=== PATIENT | male | born 1950 | race Caucasian/White ===

== ENCOUNTER 2022-08-14 10:21 | Outpatient (OUT) | payer MEDICARE, SELFPAY ==
[2022-08-14 11:07] LABS: Basophils Absolute Auto 0.1 10^3/uL (0.0-0.1); Basophils Percent Auto 0.7 % (0.2-2.0); Eosinophils Absolute Auto 0.2 10^3/uL (0.0-0.7); Eosinophils Percent Auto 2.7 % (0.9-7.0); Hematocrit 39.6 % (42.0-54.0); Hemoglobin 12.7 g/dL (14.0-18.0); Immature Granulocytes Abs Auto 0.03 10^3/uL (0.00-0.03); Immature Granulocytes Pct Auto 0.3 % (0.0-0.5); Lymphocytes Absolute Auto 2.4 10^3/uL (1.2-3.8); Lymphocytes Percent Auto 27.6 % (20.5-60.0); Mean Corpuscular HGB Conc 32.1 g/dL (29.9-35.2); Mean Corpuscular Hemoglobin 27.6 pg (25.9-34.0); Mean Corpuscular Volume 86.1 fL (80.0-94.0); Mean Platelet Volume 9.3 fL (9.5-13.5); Monocytes Absolute Auto 0.9 10^3/uL (0.3-0.8); Monocytes Percent Auto 9.9 % (1.7-12.0); Neutrophils Absolute Auto 5.2 10^3/uL (1.4-6.5); Neutrophils Percent Auto 58.8 % (43.0-75.0); Platelet Count 241 10^3/uL (150-450); Red Cell Distribution Width 14.5 % (11.0-15.0); White Blood Count 8.8 10^3/uL (4.0-11.0)
[2022-08-14 12:35] LABS: Anion Gap 13.4; BUN Creatinine Ratio 17.6; Calcium 9.1 mg/dL (8.5-10.1); Carbon Dioxide 29.1 mmol/L (21.0-32.0); Chloride 102 mmol/L (98-107); Estimated GFR (African America >60 (>=60); Estimated GFR (Non-African Ame >60 (>=60); Glucose 124 mg/dL (74-106); Potassium 4.5 mmol/L (3.5-5.1); Sodium 140 mmol/L (136-145)
== END 2022-08-14 10:22 ==
PROVIDERS: PCP Family Medicine; Visit Provider Nurse Practitioner
DX: E11.59 Type 2 diabetes mellitus with other circulatory complications (principal); I25.10 Atherosclerotic heart disease of native coronary artery without angina pectoris; I15.2 Hypertension secondary to endocrine disorders; E78.2 Mixed hyperlipidemia; R53.83 Other fatigue; R60.0 Localized edema; I50.9 Heart failure, unspecified; I13.0 Hypertensive heart and chronic kidney disease with heart failure and stage 1 through stage 4 chronic kidney disease, or unspecified chronic kidney disease
CPT/HCPCS: 36415; 80048; 82306; 83880; 85025

== ENCOUNTER 2023-07-08 11:09 | Outpatient (OUT) | payer MEDICARE, SELFPAY ==
[2023-07-08 12:01] LABS: Estimated Average Glucose 197 mg/dL; Glycohemoglobin A1C 8.5 % (4.5-6.2)
[2023-07-08 13:03] LABS: Prostate Specific Antigen Scrn 0.61 ng/mL (<=4.00)
[2023-07-08 13:04] LABS: BUN Creatinine Ratio 14.5; Bilirubin Total 0.4 mg/dL (0.2-1.0); Calcium 9.4 mg/dL (8.5-10.1); Carbon Dioxide 30.3 mmol/L (21.0-32.0); Chloride 101 mmol/L (98-107); Estimated GFR (African America >60 (>=60); Estimated GFR (Non-African Ame >60 (>=60); Glucose 137 mg/dL (74-106); Potassium 4.3 mmol/L (3.5-5.1); Sodium 140 mmol/L (136-145)
[2023-07-08 13:05] LABS: Alanine Aminotransferase 39 U/L (16-63); Albumin Globulin Ratio 0.9; Albumin Level 3.5 g/dL (3.4-5.0); Alkaline Phosphatase 90 U/L (46-116); Aspartate Amino Transferase 36 U/L (15-37); Chol HDL Ratio 5.6; Cholesterol 219 mg/dL (<=200); Globulin 4.1 g/dL; HDL Cholesterol 39 mg/dL (40-60); Total Protein 7.6 g/dL (6.4-8.2); Triglycerides 210 mg/dL (<=150)
[2023-07-08 13:06] LABS: Thyroid Stimulating Hormone 3.188 uIU/mL (0.358-3.740)
[2023-07-08 13:22] LABS: Microalbumin Urine Random 2.4 mg/dL (<=30.0)
== END 2023-07-08 11:10 | disposition home or self-care (01) ==
LOC: LAB 11:11
PROVIDERS: PCP Family Medicine; Visit Provider Family Medicine
DX: E11.65 Type 2 diabetes mellitus with hyperglycemia (principal); I10 Essential (primary) hypertension; Z12.5 Encounter for screening for malignant neoplasm of prostate
CPT/HCPCS: 36415; 80053; 80061; 82043; 83036; 84443; G0103

== ENCOUNTER 2024-02-18 09:58 | Outpatient (OUT) | payer OTHER, SELFPAY ==
[2024-02-18 10:25] LABS: Basophils Absolute Auto 0.1 10^3/uL (0.0-0.1); Basophils Percent Auto 1.1 % (0.2-2.0); Eosinophils Absolute Auto 0.2 10^3/uL (0.0-0.7); Eosinophils Percent Auto 2.9 % (0.9-7.0); Hematocrit 42.6 % (42.0-54.0); Hemoglobin 13.8 g/dL (14.0-18.0); Immature Granulocytes Abs Auto 0.02 10^3/uL (0.00-0.03); Immature Granulocytes Pct Auto 0.2 % (0.0-0.5); Lymphocytes Absolute Auto 2.5 10^3/uL (1.2-3.8); Lymphocytes Percent Auto 31.3 % (20.5-60.0); Mean Corpuscular HGB Conc 32.4 g/dL (29.9-35.2); Mean Corpuscular Hemoglobin 28.2 pg (25.9-34.0); Mean Corpuscular Volume 86.9 fL (80.0-94.0); Mean Platelet Volume 9.3 fL (9.5-13.5); Monocytes Absolute Auto 0.7 10^3/uL (0.3-0.8); Monocytes Percent Auto 9.2 % (1.7-12.0); Neutrophils Absolute Auto 4.4 10^3/uL (1.4-6.5); Neutrophils Percent Auto 55.3 % (43.0-75.0); Platelet Count 269 10^3/uL (150-450); Red Cell Distribution Width 13.9 % (11.0-15.0)
[2024-02-18 11:02] LABS: Estimated Average Glucose 166 mg/dL; Glycohemoglobin A1C 7.4 % (4.5-6.2)
[2024-02-18 12:28] LABS: Anion Gap 12.2; BUN Creatinine Ratio 17.7; Calcium 9.2 mg/dL (8.5-10.1); Carbon Dioxide 30.4 mmol/L (21.0-32.0); Chloride 103 mmol/L (98-107); Estimated GFR (African America >60 (>=60 mL/min/1.73m^2); Estimated GFR (Non-African Ame >60 (>=60 mL/min/1.73m^2); Glucose 141 mg/dL (74-106); Potassium 4.6 mmol/L (3.5-5.1); Sodium 141 mmol/L (136-145)
== END 2024-02-18 09:59 | disposition home or self-care (01) ==
PROVIDERS: PCP Family Medicine; Visit Provider Family Medicine
DX: E11.65 Type 2 diabetes mellitus with hyperglycemia (principal)
CPT/HCPCS: 36415; 80048; 83036; 85025

== ENCOUNTER 2024-04-20 11:33 | Outpatient (OUT) | payer MEDICARE, SELFPAY ==
--- OUTSIDE RECORDS SUMMARY | 2024-04-20 11:35 | XMS_ITS | CCD ---
Author Organization [facility] Care Team Providers Care Senior Project Architect Name Role Phone SELF, REFERRED Referring Unavailable ROOPA BARTHIA Primary Care Unavailable UNKNOWN, PROVIDER Admitting Unavailable UNKNOWN, PROVIDER Attending Unavailable Ayden Tanner II Unavailable MD Desi Barth Primary Care Provider MD Ayden Tanner II Attending Provider Ayden Tanner II Attending UnavailAyden Lezama II Admitting Unavailabl Desi Khan E Primary Care Unavailable MOUKANIKOLAY, DR BALLESTEROS Admitting Unavailable MOUKARBEL, DR BALLESTEROS Attending Unavailable BARTH, DESI E Primary Care Unavailable BARTH, DESI E Consulting Unavailable BARTH, DESI E Primary Care Unavailable TIN ROUSSEAU Admitting Unavailable TIN ROUSSEAU Attending Unavailable MARCELINA, DR ALEIDA Barajas Consulting Unavailable TIN ROUSSEAU Consulting Unavailable BAILEY GLASS Consulting Unavailable Aleksandra Mar Consulting Unavailable MOUKARBEMILY, DR BALLESTEROS Admitting Unavailable MOUKARBEL, DR BALLESTEROS Attending Unavailable LARY, DESI E Primary Care Unavailable LUX LR Admitting Unavailable LUX LR Attending Unavailable LARY, DESI E Primary Care Unavailable MOUKARBEL, DR BALLESTEROS Admitting Unavailable MOUKARBEL, DR BALLESTEROS Attending Unavailable BARTH, DESI E Primary Care Unavailable MOUKARBEL, DR BALLESTEROS Consulting Unavailable BARTH, DESI E Admitting Unavailable BARTHDESI E Attending Unavailable BARTH, DESI E Primary Care Unavailable DR JANE HILL Consulting Unavailable BARTH, DESI E Consulting Unavailable YEARTY, LUX Admitting Unavailable YEARTY LUX Attending Unavailable BARTH, DESI E Primary Care Unavailable YEARTY, LUX Consulting Unavailable Barth, Desi Unavailable ANISH ARNETT Attending Unavailable MOUKARBELLESLI Attending Unavailable Allergies Allergy Classification Reported Allergen(s) Allergy Type Date of Onset Reaction(s) Facility (3 sources) atorvastatin Drug Allergy Comment:Myalgi as [facility] Other (3 sources) Allergies Reconciled Propensity to adverse reactions Unknown [facility] Other Medications Current Medications Medication Drug Class(es) Dates Sig (Normalized) Sig (Original) Acetaminophen / oxyCODONE (3 sources) Opioid Agonist Start: 11-27-2021 take 1 tablet by mouth three times daily as needed Endocet 10-325mg Endocet 10-325mg, 1 (one) tablet three times daily, as needed # 20, 11/27/2021, No Refill. Active oral three times daily, as needed for 7 *Pick strength-form from fflick for eRX* Nov, Active amLODIPine 10 mg oral tablet (7 sources) Dihydropyridine Calcium Channel Latrice Start: 07-07-2023 take 1 tablet by mouth once daily Amlodipine Active 1 TAB PO Daily July 07, 2023 12:00am [employer] tablet Orally Once a day; Note: Source Status: Taking; Provider: Ciro Hensley II ( ) take 1 tablet by mouth once roshni y amLODIPine Besylate 10 MG 1 tablet Orally Once a day Active aspirin 81 mg chewable tablet (10 sources) Platelet Aggregation Inhibitor, Nonsteroidal Anti-inflammatory Drug Start: 07-07-2023 take 1 tablet by mouth once daily Aspirin Active 1 TAB PO Daily July 07, 2023 12:00am [employer] tablet Orally Once a day; Note: Source Status: Taking; Provider: Ciro Hensley II ( ) Start: 11-27-2021 EQ Aspirin Dion lt Low Dose 81MG EQ Aspirin Adult Low Dose( 81MG Oral daily ) Active -Hx Entry Oral daily for 0 *Pick strength-form from fflick for eRX* Nov, Active take 1 tablet by polina th once daily Aspirin 81 81 MG 1 tablet Orally Once a day Active clopidogrel 75 mg oral tablet (7 sources) P2Y12 Platelet Inhibitor Start: 07-07-2023 take 1 tablet by mouth once daily Clopidogrel Active 75 MG PO Daily July 07, 2023 12:00am [employer] tablet Orally Once a day; Note: Source Status: Taking; Provider: Ciro Hensley II ( ) take 1 tablet by polina th every twenty-four hours Clopidogrel Bisulfate 75 MG 1 tablet Orally Once a day Active furosemide 20 mg oral tablet (3 sources) Loop Diuretic Start: 05-13-2021 take 1 tablet by mouth once daily Furosemide 20MG Furosemide 20MG, 1 (one) Tablet daily # 30, 05/13/2021, Ref. x2. Active Oral daily for 30 *Pick strength-form from fflick for eRX* May, Active glipiZIDE er 10 mg 24 hr extended release oral tablet (13 sources) Sulfonylurea Start: 07-26-2023 End: 10-18-2023 take 1 tablet by mouth once daily Glipizide Active 0 .ROUTE .COMPLEX 90 October 18, 2023 9:40am Take 1 tablet by mouth once daily Start: 07-07-2023 End: 07-26-2023 take 1 tablet by mouth once daily Glipizide Discontinued 10 MG PO Daily July 07, 2023 12:00am July 26, 2023 12:46pm FreeTextSig: Take 1 tablet by mouth once daily; Note: Source Status: Refill; Refills: 0; Qty: 90 Tablet; Provider: Lary Rodríguez Start: 02-02-2022 take 1 tablet by polina th once daily glipiZIDE 10mg glipiZIDE 10mg, 1 (one) Tablet daily # 30, 02/02/2022, Ref. x3. Active oral daily for 0 *Pick strength-form from fflick for eRX* Jan, Active take 1 tablet by polina th once daily glipiZIDE ER 10 MG Take 1 tablet by mouth once daily for 90 Active hydroCHLOROthiazide 25 mg / losartan potassium 100 mg oral tablet (9 sources) Thiazide Diuretic, Angiotensin 2 Receptor Latrice Start: 07-06-2023 End: 07-06-2023 take 1 tablet by mouth once daily Losartan-Hydrochlorothiazide Active 1 TAB PO Daily July 06, 2023 9:37am Losartan Potassi um-HCTZ 100-25 MG Take 1 tablet by mouth once daily for 90 days for 90 Active 24 hr isosorbide mononitrate 30 mg extended release oral tablet (7 sources) Nitrate Vasodilator Start: 07-07-2023 take 1 tablet by mouth once daily in the morning Isosorbide Mononitrate Active 1 TAB PO Daily July 07, 2023 12:00am FreeTextSi tablet in the morning Orally Once a day; Note: Source Status: Taking; Provider: Ciro Hensley II ( ) take 1 tablet by polina th every twenty-four hours Isosorbide Mononitrate ER 30 MG 1 tablet in the morning Orally Once a day Active Losartan Potassium-HCTZ 100-25MG (3 sources) Start: 04-04-2021 Losartan Potassium-HCTZ 100-25MG Losartan Potassium-HCTZ 100-25MG, 1 (one) Tablet daily # 90, 04/04/2021, Ref. x3. Active Oral daily for 90 *Pick strength-form from fflick for eRX* Mar, Active metFORMIN hydrochloride 1000 mg oral tablet (18 sources) Biguanide Start: 10-11-2023 take 1 tablet by mouth twice daily at mealtime Metformin Active 0 .ROUTE .COMPLEX 180 October 11, 2023 2:19pm TAKE 1 TABLET BY MOUTH TWICE DAILY WITH A MEAL Start: 07-06-2023 End: 10-11-2023 take 1000 mg by mouth twice daily Metformin Discontinued 1000 MG PO Twice daily 180 July 06, 2023 9:37am October 11, 2023 2:19pm Start: 12-11-2021 take 1 tablet by polina th every twelve hours Metformin 1000 MG 1 tablet with a meal oral bid for 30 days Nov, Active Start: 04-10-2020 End: 07-06-2023 take 500 mg by mouth twice daily Metformin Discontinued 500 MG PO Twice daily April 10, 2020 1:00am July 06, 2023 9:09am metoprolol tartrate 50 mg oral tablet (10 sources) beta-Adrenergic Latrice Start: 07-07-2023 End: 07-08-2023 take 1 tablet by mouth twice daily at mealtime Metoprolol Tartrate Active 50 MG PO Twice daily July 08, 2023 10:27am FreeTextSi tablet with food Orally Twice a day; Note: Source Status: Taking; Provider: Ciro Hensley II ( ) take 1 tablet by polina th every twelve hours Metoprolol Tartrate 50 MG 1 tablet with food Orally Twice a day Active rosuvastatin calcium 20 mg oral tablet (7 sources) HMG-CoA Reductase Inhibitor Start: 07-07-2023 take 1 tablet by mouth once daily Rosuvastatin Active 20 MG PO Daily July 07, 2023 12:00am FreeTextSi tablet Orally Once a day; Note: Source Status: Taking; Provider: Ciro Hensley II ( ) take 1 tablet by polina th every twenty-four hours Rosuvastatin Calcium 20 MG 1 tablet Oral ly Once a day Active Completed/Discontinued Medications Medication Drug Class(es) Dates Sig (Normalized) Sig (Original) hydroCHLOROthiazide 12.5 mg oral tablet (7 sources) Thiazide Diuretic Start: 1 End: 4 take 12.5 mg by mouth once daily Hydrochlorothiazide Discontinued 12.5 MG PO Daily April 10, 2020 1:00am July 06, 2023 9:09am losartan potassium 100 mg oral tablet (7 sources) Angiotensin 2 Receptor Latrice Start: 4 End: 4 take 1 tablet by mouth once daily Losartan Discontinued 100 MG PO Daily July 07, 2023 12:00am July 08, 2023 10:27am FreeTextSi tablet Orally Once a day; Note: Source Status: Taking; Provider: Ciro Hensley II ( ) take 1 tablet by polina th every twenty-four hours Losartan Potassium 100 MG 1 tablet Orally Once a day Active Problems Active Problems Problem Classification Problem Date Documented Date Episodic/Chronic Abdominal pain (4 sources) Epigastric pain; Translations: [Epigastric pain] Episodic Coronary atherosclerosis and other heart disease (7 sources) Atherosclerotic heart disease of [place] coronary artery without angina pectoris; Translations: [ASHD [place] W/O ANGINA PECTORIS] Onset: 09-01-2021 Chronic Diabetes mellitus with complications (15 sources) Type 2 diabetes mellitus with other specified complication; Translations: [Type 2 diabetes mellitus with other circulatory complications] Onset: 02-27-2022 Chronic Diabetes mellitus without complication (1 source) Type 2 diabetes mellitus without complications; Translations: [TYPE 2 DM WITHOUT COMPLICATIONS] Onset: 11-26-2021 Chronic Disorders of lipid metabolism (3 sources) Hyperlipidemia, unspecified; Translations: [Mixed hyperlipidemia] Onset: 05-05-2022 Chronic Essential hypertension (16 sources) Essential (primary) hypertension; Translations: [Essential hypertension] Onset: 11-26-2021 Chronic Hyperplasia of prostate (3 sources) Large prostate ; Translations: [Benign prostatic hyperplasia without lower urinary tract symptoms] Chronic Hypertension with complications and secondary hypertension (5 sources) Hypertension secondary to endocrine disorders; Translations: [Hypertensive heart and chronic kidney disease with heart failure and stage 1 through stage 4 chronic kidney disease, or unspecified chronic kidney disease] Onset: 02-27-2022 Chronic Nausea and vomiting (4 sources) Nausea; Translations: [Nausea] Episodic Nonspecific chest pain (3 sources) Precordial pain; Translations: [Precordial pain] Episodic Other circulatory disease (3 sources) Elevated blood-pressure reading without diagnosis of hypertension; Translations: [Elevated blood-pressure reading, without diagnosis of hypertension] Episodic Other injuries and conditions due to external causes (3 sources) History of fall; Translations: [History of falling] Episodic Other non-traumatic joint disorders (3 sources) Arthralgia of the pelvic region and thigh; Translations: [Pain in left hip] Episodic Other nutritional; endocrine; and metabolic disorders (1 source) Obesity, unspecified; Translations: [OBESITY UNSPECIFIED] Onset: 11-26-2021 Chronic Other nutritional; endocrine; and metabolic disorders (1 source) Body mass index (BMI) 45.0-49.9, adult; Translations: [BODY MASS INDEX BMI 45.0-49.9 ADULT] Onset: 11-26-2021 Chronic Other nutritional; endocrine; and metabolic disorders (6 sources) Body mass index 40+ - severely obese; Translations: [Body mass index (BMI) 45.0-49.9, adult] Chronic Other nutritional; endocrine; and metabolic disorders (2 sources) Body mass index (BMI) 30.0-30.9, adult; Translations: [Body mass index (BMI) 30.0-30.9, adult] Onset: 08-14-2022 Chronic Other screening for suspected conditions (not mental disorders or infectious disease) (12 sources) CT of abdomen abnormal; Translations: [Abnormal findings on diagnostic imaging of other abdominal regions, including retroperitoneum] 07-08-2023 Episodic Residual codes; unclassified (3 sources) Immunization refused ; Translations: [Immunization not carried out because of patient refusal] Episodic Unclassified (1 source) Pain in left hip; Translations: [Pain in left hip] Onset: 12-31-2021 Unclassified (3 sources) LOW BACK PAIN, UNSPECIFIED; Translations: [LOW BACK PAIN, UNSPECIFIED] Onset: 11-26-2021 Unclassified (2 sources) Foreign body; Translations: [Foreign body] 08-18-2023 Past or Other Problems Problem Classification Problem Date Documented Da te Episodic/Chronic Calculus of urinary tract (1 source) Calculus of kidney; Translations: [CALCULUS OF KIDNEY] Onset: 11-26-2021 Episodic Coronary atherosclerosis and other heart disease (4 sources) Presence of coronary angioplasty implant and graft; Translations: [PRESENCE COR 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] Onset: 05-15-2021 Episodic Malaise and fatigue (2 sources) Other fatigue; Translations: [Other fatigue] Onset: 08-14-2022 Episodic Other aftercare (1 source) group home (current) use of aspirin; Translations: [PRODUCT INSPECTION SUPERVISOR CURRENT USE OF ASPIRIN] Onset: 11-26-2021 Episodic Other aftercare (1 source) director long term care (current) use of oral hypoglycemic drugs; Translations: [PRODUCT INSPECTION SUPERVISOR USE ORAL HYPOGLYCEMIC DX] Onset: 11-26-2021 Episodic Other aftercare (1 source) Other exterminator (current) drug therapy; Translations: [OTH PRODUCT INSPECTION SUPERVISOR CURRENT DRUG THERAPY] Onset: 11-26-2021 Episodic Other non-traumatic joint disorders (5 sources) Pain in left hip; Translations: [PAIN IN LEFT HIP] Onset: 11-27-2021 Episodic Residual codes; unclassified (2 sources) Localized edema; Translations: [Localized edema] Onset: 08-14-2022 Episodic Screening and history of mental health and substance abuse codes (1 source) Personal history of nicotine dependence; Translations: [PERSONAL HISTORY OF NICOTINE DEPEND] Onset: 11-26-2021 Episodic Unclassified (1 source) LOW BACK PAIN, UNSPECIFIED; Translations: [LOW BACK PAIN, UNSPECIFIED] Onset: 11-23-2021 Results Test Name Value Interpretation Reference Range Facility Cholesterol in LDL Calc [Mas s/Vol]on 07-08-2023 Cholesterol in LDL [Mass/Vol] 138.0 mg/dL [facility] Comment on above: <100 mg/dl [id number] 0-129 mg/dl NEAR OR ABOVE [id number] mg/dl BORDERLINE [id number] mg/dl HIGH>190 mg/dl VERY HIGH Cholesterol in VLDL Calc [Ma ss/Vol]on 07-08-2023 Cholesterol in VLDL [Mass/Vol] 42.0 mg/dL [facility] Estimated glomerular filtrat ion rate (GFR) non- Americanon 07-08-2023 GFR/1.73 sq M.predicted among non-blacks MDRD (S/P/Bld) [Vol rate/Area] mL/min/{1.73_m2} >=60 [facility] Globulin Calc (S) [Mass/Vol] on 07-08-2023 Globulin (S) [Mass/Vol] 4.1 g/dL [facility] Glucose mean value [Mass/vol ume] in Blood Estimated from glycated hemoglobinon 07-08-2023 Average glucose Estimated from glycated hemoglobin (Bld) [Mass/Vol] 197 mg/dL [facility] Laboratory - Chemistry and C hemistry - challengeon 07-08-2023 Albumin [Mass/Vol] 3.5 g/dL 3.4-5.0 [facility] ALP [Catalytic activity/Vol] 90 U/L 46-116 [facility] ALT [Catalytic activity/Vol] 39 U/L 16-63 [facility] AST [Catalytic activity/Vol] 36 U/L 15-37 [facility] Bilirubin [Mass/Vol] 0.4 mg/dL 0.2-1.0 [facility] Calcium [Mass/Vol] 9.4 mg/dL 8.5-10.1 [facility] Chloride [Moles/Vol] 101 mmol/L 98-107 [facility] Cholesterol [Mass/Vol] 219 mg/dL <=200 [facility] Cholesterol in HDL [Mass/Vol] 39 mg/dL 40-60 [facility] Comment on above: > or =60 mg/dl - LOW CARDIOVASCULAR RISK<40 mg/dl - HIGH CARDIOVASCULAR RISK CO2 [Moles/Vol] 30.3 mmol/L 21.0-32.0 [facility] Creatinine [Mass/Vol] 0.83 mg/dL 0.70-1.30 [facility] GFR/1.73 sq M.predicted MDRD (S/P/Bld) [Vol rate/Area] mL/min/{1.73_m2} >=60 [facility] Glucose [Mass/Vol] 137 mg/dL 74-106 [facility] Potassium [Moles/Vol] 4.3 mmol/L 3.5-5.1 [facility] Protein [Mass/Vol] 7.6 g/dL 6.4-8.2 [facility] Sodium [Moles/Vol] 140 mmol/L 136-145 [facility] Triglyceride [Mass/Vol] 210 mg/dL <=150 [facility] TSH Qn 3.188 m[IU]/L 0.358-3.740 [facility] Urea nitrogen [Mass/Vol] 12.0 mg/dL 7.0-18.0 [facility] Urea nitrogen/Creatinine [Mass ratio] 14.5 mg/mg [facility] Laboratory - Hematology and Cell countson 07-08-2023 HbA1c (Bld) [Mass fraction] 8.5 % 4.5-6.2 [facility] Comment on above: ADA RECOMMENDED LIMI T 4.0 - 6.0ADA THERAPEUTIC TARGET < 7.0ACTION SUGGESTED> 7.0 Microalbumin [Mass/volume] i n Urineon 07-08-2023 Albumin DL <= 20 mg/L (U) [Mass/Vol] 2.4 mg/dL <=30.0 [facility] No Panel Informationon 07-07 Prostate Specific Antigen Screen 0.61 ng/mL <=4.00 [facility] Serum or plasma albumin/glob ulin mass ratioon 07-08-2023 Albumin/Globulin [Mass ratio] 0.9 {ratio} [facility] Serum or plasma anion gap de terminationon 07-08-2023 Anion gap [Moles/Vol] 13.0 mmol/L [facility] Serum or plasma total choles terol/high density lipoprotein (HDL) cholesterol mass ponce 07-08-2023 Cholesterol.total/Ch olesterol in HDL [Mass ratio] 5.6 {ratio} [facility] Comment on above: 3.3 - 4.4 LOW RISK4. 4 - 7.1 AVERAGE RISK7.1 - 11.0 MODERATE RISK>11.0 HIGH RISK Office Visiton 04-01-2023 Follow-up visit [id number] Juan Miguel Prasadneth 1950 M Date Provider Department Center 04/01/2023 LESLI CORRALES ANUEL [facility] Family History Problem Relation Age of Onset No Known Problems Mother No Known Problems Father Family Status - Relation Status Age at Mother Father Level of Service:89989 [place] OFFICE/OUTPATIENT ESTABLISHED MOD MDM 30 MIN [facility] 36on 03-30-2023 36 Medication has been refilled on 03/23/2023 [facility] 37on 08-14-2022 37 Have labs drawn Start lasix 40 mg 1 tab for 2-3 days as needed for leg swelling and then stop- eat a extra banana with the lasix. [facility] Office Visiton 08-14-2022 Follow-up visit [id number] Prasad,Saurabh 1950 M Date Provider Department Center 08/14/2022 ANISH BUSTAMANTE [facility]EL [facility] Family History Problem Relation Age of Onset No Known Problems Mother No Known Problems Father Family Status - Relation Status Age at Mother Father Level of Service:02160 [place] OFFICE/OUTPATIENT ESTABLISHED MOD MDM 30-39 MIN [facility] LIPID PROFILEon 04-30-2022 CHOL-HDL RATIO NORM SEE BELOW Normal [facility] Comment on above: Result Comment: 3.3 - 4.4 LOW RISK 4.4 - 7.1 AVERAGE RISK 7.1 - 11.0 MODERATE RISK >11.0 HIGH RISK Performed By: #### L IPID, CMP #### [facility] [address] [address] [address] Alberta Stern Cholesterol [Mass/Vol] 105 mg/dL Normal <=200 [facility] Comment on above: Performed By: #### L IPID, CMP #### [facility] [address] [address] [address] Alberta Stern Cholesterol in HDL [Mass/Vol] 38 mg/dL Critically low 40-60 [facility] Comment on above: Performed By: #### L IPID, CMP #### [facility] [address] [address] [address] Alberta Stern Cholesterol in LDL [Mass/Vol] 46.6 mg/dL Normal [facility] Comment on above: Performed By: #### L IPID, CMP #### [facility] [address] [place] [address] Dr. Alberta Stern Cholesterol.total/Ch olesterol in HDL [Mass ratio] 2.8 {ratio} Normal [facility] Comment on above: Performed By: #### L IPID, CMP #### [facility] [address] [place] [address] Dr. Alberta Stern HDL NORMAL > or = 60 mg/dl - LOW CARDIOVASCULAR RISK <40 mg/dl - HIGH CARDIOVASCULAR RISK Normal [facility] Comment on above: Performed By: #### L IPID, CMP #### [facility] [address] [place] [address] Dr. Alberta Stern LDL CALC NORMAL SEE BELOW Normal [facility] Comment on above: Result Comment: <100 mg/dl OPTIMAL 100 - 129 mg/dl NEAR OR ABOVE OPTIMAL 130 - 159 mg/dl BORDERLINE HIGH 160 - 189 mg/dl HIGH >190 mg/dl VERY HIGH Performed By: #### L IPID, CMP #### [facility] [address] [place] [address] Dr. Alberta Stern Triglyceride [Mass/Vol] 102 mg/dL Normal <=150 [facility] Comment on above: Performed By: #### L IPID, CMP #### [facility] [address] [place] [address] Dr. Alberta Stern VLDL CALC 20.4 mg/dL Normal [facility] Comment on above: Performed By: #### L IPID, CMP #### [facility] [address] [place] [address] Dr. Alberta Stern PROF 14(COMP METB)on 023 Albumin [Mass/Vol] 3.5 g/dL Normal 3.4-5.0 [facility] Comment on above: Performed By: #### L IPID, CMP #### [facility] [address] [address] [address] Alberta Stern Albumin/Globulin [Mass ratio] 1.0 {ratio} Normal [facility] Comment on above: Performed By: #### L IPID, CMP #### [facility] [address] [address] [address] Alberta Stern ALP [Catalytic activity/Vol] 95 U/L Normal 46-116 [facility] Comment on above: Performed By: #### L IPID, CMP #### [facility] [address] [address] [address] Alberta Stern ALT [Catalytic activity/Vol] 23 U/L Normal 16-63 [facility] Comment on above: Performed By: #### L IPID, CMP #### [facility] [address] [address] [address] Alberta Stern Anion gap [Moles/Vol] 12.2 mmol/L Normal [facility] Comment on above: Performed By: #### L IPID, CMP #### [facility] [address] [address] [address] Alberta Stern AST [Catalytic activity/Vol] 19 U/L Normal 15-37 [facility] Comment on above: Performed By: #### L IPID, CMP #### [facility] [address] [address] [address] Alberta Stern Bilirubin [Mass/Vol] 0.4 mg/dL Normal 0.2-1.0 [facility] Comment on above: Performed By: #### L IPID, CMP #### [facility] [address] [address] [address] Alberta Stern Calcium [Mass/Vol] 8.9 mg/dL Normal 8.5-10.1 [facility] Comment on above: Performed By: #### L IPID, CMP #### [facility] [address] [address] [address] Alberta Stern Chloride [Moles/Vol] 103 mmol/L Normal 98-107 [facility] Comment on above: Performed By: #### L IPID, CMP #### [facility] [address] [address] [address] Alberta Stern CO2 [Moles/Vol] 29.2 mmol/L Normal 21.0-32.0 [facility] Comment on above: Performed By: #### L IPID, CMP #### [facility] [address] [address] [address] Alberta Stern Creatinine [Mass/Vol] 0.74 mg/dL Normal 0.70-1.30 [facility] Comment on above: Performed By: #### L IPID, CMP #### [facility] [address] [address] [address] Alberta Stern EGFR-AF [place] >60 Normal >=60 [facility] Comment on above: Performed By: #### L IPID, CMP #### [facility] [address] [address] [address] Alberta Stern EGFR-NON AF [place] >60 Normal >=60 [facility] Comment on above: Performed By: #### L IPID, CMP #### [facility] [address] [address] [address] Alberta Stern Globulin (S) [Mass/Vol] 3.6 g/dL Normal [facility] Comment on above: Performed By: #### L IPID, CMP #### [facility] [address] [address] [address] Alberta Stern Glucose [Mass/Vol] 143 mg/dL Critically high 74-106 T [facility] Comment on above: Performed By: #### L IPID, CMP #### [facility] [address] [address] [address] Alberta Stern Potassium [Moles/Vol] 4.4 mmol/L Normal 3.5-5.1 [facility] [facility] Comment on above: Performed By: #### L IPID, CMP #### [facility] [address] [address] [address] Alberta Stern Protein [Mass/Vol] 7.1 g/dL Normal 6.4-8.2 [facility] Comment on above: Performed By: #### L IPID, CMP #### [facility] [address] [address] [address] Alberta Stern Sodium [Moles/Vol] 140 mmol/L Normal 136-145 [facility] Comment on above: Performed By: #### L IPID, CMP #### [facility] [address] [address] [address] Alberta Stern Urea nitrogen [Mass/Vol] 15.0 mg/dL Normal 7.0-18.0 [facility] Comment on above: Performed By: #### L IPID, CMP #### [facility] [address] [address] [address] Alberta Stern Urea nitrogen/Creatinine [Mass ratio] 20.3 mg/mg Normal [facility] Comment on above: Performed By: #### L IPID, CMP #### [facility] [address] [address] [address] Alberta Stern XR hip LT min 2V(w/wo pelvis )*on 12-31-2021 XR hip LT min 2V(w/wo pelvis)* [facility] Main [place] [address] [place] [address] XRay Report Signed Patient: Saurabh Prasad MR#: [id number] [id number] : 1950 Acct:[id number] Age/Sex: 71 / M ADM Date: 12/31/21 Loc: [facility] Room: Type: [facility] Attending Dr: Ayden Tanner II, MD Copies to: Ayden Tanner MD Ordering Provider: Ayden Tanner MD Date of Service: 12/31/21 XR/XR hip LT min 2V(w/wo pelvis)*: Left hip pain LEFT HIP - 2 views: 1 view pelvis CLINICAL HISTORY: Left-sided pain for months. COMPARISON: Left hip series 11/27/2021 FINDINGS: Suboptimal evaluation due to body habitus. Moderate degenerative changes of both hips without acute bony process. XR/XR hip LT min 2V(w/wo pelvis)* IMPRESSION: SUBOPTIMAL STUDY DUE TO BODY HABITUS. THERE APPEARS TO BE MODERATE DEGENERATIVE CHANGES OF BOTH HIPS WITHOUT ACUTE BONY PROCESS.. Impression dictated by: Rivas Ortega Jr., D.OElzbieta12/31/2021 2:45 PM Dictation Location: [place] [address] Transcribed By: [facility] 12/31/21 1445 Dictated By: Rivas Ortega Jr, DO 12/31/21 1443 Signed By: 12/31/21 1445 [facility] ABD/PELVIS WO CONon 11-24 CT ABD/PELVIS WO CON EXAMINATION: CT ABD/PELVIS WO CON, 11/23/2021 8:30 PM EDT HISTORY: CALCULUS OF KIDNEY COMPARISON: Prior CT scan from 02/27/2020 . TECHNIQUE: CT scan of the abdomen and pelvis was performed without IV contrast. CT dose reduction technique was used, including Automated Exposure Control. FINDINGS: The right kidney again demonstrates a calculus in the mid calyx measuring 8 x 12 mm in size, without hydronephrosis or hydroureter. The left kidney and left ureter demonstrate no urolithiasis or urinary tract dilatation. Partially filled urinary bladder is unremarkable. Prostate gland is not enlarged. The liver, spleen, pancreas, gallbladder, bile ducts and both adrenal glands are unremarkable. Moderate atherosclerotic calcification of the abdominal aorta. Unremarkable IVC. No lymph node enlargement in the abdomen, retroperitoneum or the pelvis. Colonic diverticulosis without diverticulitis. Moderate stool throughout the colon. Unremarkable appendix. No bowel loop dilatation or bowel wall thickening. Small umbilical hernia containing fatty tissue. No free fluid in the peritoneal cavity. The bone windows demonstrate no focal aggressive lesion. Mild degenerative changes throughout lumbar spine. Limited scans lung bases demonstrate minimal scarring. IMPRESSION: 1. Nonobstructing 8 x 12 mm calculus mid calyx right kidney. 2. No hydronephrosis or hydroureter right or left side. 3. Colonic diverticulosis without diverticulitis. Moderate stool. 4. Small umbilical hernia containing fatty tissue. Electronically authenticated by: BAILEY GLASS Date: 2021-11-23 22:[address] [facility] ER URINE PROFILEon 2 Bilirubin Ql (U) Negative Normal NEGATIVE The [facility] Comment on above: Performed By: #### U MICRO, ERUR #### [facility] [address] [place] [address] Dr. Alberta Stern Clarity (U) CLEAR Normal CLEAR [facility] Comment on above: Performed By: #### U MICRO, ERUR #### [facility] [address] [address] [address] Alberta Stern Color (U) YELLOW Normal YELLOW [facility] Comment on above: Performed By: #### U MICRO, ERUR #### [facility] [address] [address] [address] Alberta BLUE A micrscopic examination will be performed if indicated. Normal [facility] Comment on above: Performed By: #### U MICRO, ERUR #### [facility] [address] [address] [address] Alberta Stern Glucose Ql (U) Negative Normal NEGATIVE The [facility] Comment on above: Performed By: #### U MICRO, ERUR #### [facility] [address] [place] [address] Dr. Alberta Stern Hemoglobin Ql (U) SMALL Abnormal NEGATIVE The [facility] Comment on above: Performed By: #### U MICRO, ERUR #### [facility] [address] [address] [address] Alberta Stern Ketones Ql (U) TRACE Abnormal NEGATIVE The [facility] Comment on above: Performed By: #### U MICRO, ERUR #### [facility] [address] [address] [address] Alberta Stern LEUKOCYTES Negative Normal NEGATIVE [facility] Comment on above: Performed By: #### U MICRO, ERUR #### [facility] [address] [address] [address] Alberta Stern Nitrite Ql (U) Negative Normal NEGATIVE [facility] Comment on above: Performed By: #### U MICRO, ERUR #### [facility] [address] [address] [address] Alberta Stern pH (U) 6.0 [pH] Normal 5-9 [facility] Comment on above: Performed By: #### U MICRO, ERUR #### [facility] [address] [place] [address] Dr. Alberta Stern SPEC GRAVITY 1.025 Normal 1.005-<=1.025 [facility] Comment on above: Performed By: #### U MICRO, ERUR #### [facility] [address] [address] [address] Alberta Stern UA PROTEIN Negative Normal NEGATIVE/ TRACE [facility] Comment on above: Performed By: #### U MICRO, ERUR #### [facility] [address] [place] [address] Dr. Alberta Stern UR MICRO IND INDICATED Normal [facility] Comment on above: Performed By: #### U MICRO, ERUR #### [facility] [address] [place] [address] Dr. Alberta Stern Urobilinogen Qn (U) 1.0 {Makenna'U}/dL Normal 0.2 - 1. 0 [facility] Comment on above: Performed By: #### U MICRO, ERUR #### [facility] [address] [place] [address] Dr. Alberta Stern URINE MICROSCOPIC ONLYon BACTERIA NONE SEEN Normal NONE SEEN [facility] Comment on above: Performed By: #### U MICRO, ERUR #### [facility] [address] [place] [address] Dr. Alberta Stern Bacteria identified Cx Nom (U) NOT INDICATED Normal [facility] Comment on above: Performed By: #### U MICRO, ERUR #### [facility] [address] [place] [address] Dr. Alberta Stern CAST NONE SEEN Normal NONE SEEN [facility] Comment on above: Performed By: #### U MICRO, ERUR #### [facility] [address] [place] [address] Dr. Alberta Stern Crystals LM Nom (Urine sed) NONE SEEN Normal NONE SEEN [facility] Comment on above: Performed By: #### U MICRO, ERUR #### [facility] [address] [place] [address] Dr. Alberta Stern Epithelial cells LM Ql (Urine sed) RARE Normal NONE SEEN /RARE [facility] Comment on above: Performed By: #### U MICRO, ERUR #### [facility] [address] [place] [address] Dr. Alberta Stern MUCOUS NONE SEEN Normal NONE SEEN [facility] Comment on above: Performed By: #### U MICRO, ERUR #### [facility] [address] [address] [address] Alberta Stern RBC 20-50 Abnormal 0-2 [facility] Comment on above: Performed By: #### U MICRO, ERUR #### [facility] [address] [address] [address] Alberta Stern WBC NONE SEEN Normal NONE SEEN [facility] Comment on above: Performed By: #### U MICRO, ERUR #### [facility] [address] [address] [address] Alberta Stern XR LSPINE 2_3 VIEWSon 2021 XR LSPINE 2_3 VIEWS EXAM: XR LSPINE 2_3 VIEWS HISTORY: Back pain COMPARISON: Abdomen and pelvic CT 04/29/2019 TECHNIQUE: 3 views FINDINGS: Maintenance of the normal lumbar lordosis.. Vertebral body heights and alignments exhibit no fracture. Stable mild degenerative anterolisthesis of L5 on S1. Multilevel intervertebral disc space narrowing, endplate and facet arthrosis. The sacroiliac joints are unremarkable for patient's age. Stool within the rectum. Atherosclerosis of the vascular structures. IMPRESSION: No visualized acute abnormality Electronically authenticated by: ALEKSANDRA MAR Date: 2021-11-23 20:[address] [facility] LIPID PROFILEon 09-01-2021 CHOL-HDL RATIO NORM SEE BELOW Normal [facility] Comment on above: Result Comment: 3.3 - 4.4 LOW RISK 4.4 - 7.1 AVERAGE RISK 7.1 - 11.0 MODERATE RISK >11.0 HIGH RISK Performed By: #### L IPID #### [facility] [address] [address] [address] Alberta Stern Cholesterol [Mass/Vol] 92 mg/dL Normal <=200 [facility] Comment on above: Performed By: #### L IPID #### [facility] [address] [address] [address] Alberta Stern Cholesterol in HDL [Mass/Vol] 37 mg/dL Critically low 40-60 [facility] Comment on above: Performed By: #### L IPID #### [facility] [address] [address] [address] Alberta Stern Cholesterol in LDL [Mass/Vol] 33.0 mg/dL Normal [facility] Comment on above: Performed By: #### L IPID #### [facility] [address] [address] [address] Alberta Stern Cholesterol.total/Ch olesterol in HDL [Mass ratio] 2.5 {ratio} Normal [facility] Comment on above: Performed By: #### L IPID #### [facility] [address] [address] [address] Alberta Stern HDL NORMAL > or = 60 mg/dl - LOW CARDIOVASCULAR RISK <40 mg/dl - HIGH CARDIOVASCULAR RISK Normal [facility] Comment on above: Performed By: #### L IPID #### [facility] [address] [address] [address] Alberta Stern LDL CALC NORMAL SEE BELOW Normal [facility] Comment on above: Result Comment: <100 mg/dl OPTIMAL 100 - 129 mg/dl NEAR OR ABOVE OPTIMAL 130 - 159 mg/dl BORDERLINE HIGH 160 - 189 mg/dl HIGH >190 mg/dl VERY HIGH Performed By: #### L IPID #### [facility] [address] [address] [address] Alberta Stern Triglyceride [Mass/Vol] 110 mg/dL Normal <=150 [facility] Comment on above: Performed By: #### L IPID #### [facility] [address] [address] [address] Alberta Stern VLDL CALC 22.0 mg/dL Normal [facility] Comment on above: Performed By: #### L IPID #### [facility] [address] [address] [address] Alberta Stern Cardiovascular Lab Reporton 04-17-[address] [facility] MR #: [id number] Department of Physician: Lesli Anish Raj Jackson M.D. Division of Service Date: 04/16/2021 Cardiology Birthdate: 1950 Adult Cardiovascular Room #: [facility] [address] [place] [address] Cardiovascular Laboratory Report INDICATION: The patient is a 70-year-old man, who was evaluated in Cardiology Clinic because of unstable angina. He was referred for cardiac catheterization. PROCEDURES: 1. Bilateral selective coronary angiography from the left radial access. 2. Successful balloon dilatation and drug-eluting stenting of 90% mid RCA hazy stenosis reduced to 0% by deployment of a Synergy XD 4.0 x 24 mm drug-eluting stent post dilated to 4.0 mm at high pressures. 3. Administration of intracoronary nitroglycerin. METHODS: Procedure was explained to the patient with the risks and benefits. He signed the informed consent. He was brought to [facility] in a fasting state. The left wrist area was prepped and draped in usual fashion. Micropuncture technique was used for access in the left radial artery. A 6-Kenyan x 11 cm sheath was placed. Verapamil was given through the sheath and heparin was administered intravenously. Bilateral selective coronary angiography was then performed using 6-Kenyan JL4 and JR4 diagnostic catheters. Catheters were removed. Additional heparin was given and therapeutic ACT confirmed during the rest of the procedure and additional heparin given as needed. A 6-Kenyan JR4 guiding catheter was advanced and used to engage the right coronary ostium. A Prowater wire was advanced into the distal RCA. Balloon dilatation in the mid RCA was performed using an Emerge 3.5 x 20 mm balloon inflated at 8 atmospheres. Angiography revealed suboptimal results. This was treated using a Synergy XD 4.0 x 24 mm drug-eluting stent deployed at 11 atmospheres and post dilated using NC Quantum Amo 4.0 x 15 mm noncompliant balloon inflated repeatedly up to 18 atmospheres throughout the length of the stented segment. Final angiography after administration of intracoronary nitroglycerin showed excellent result with reduction of the stenosis to 0%. No evidence of dissection or perforation. The guiding catheter was removed. Procedure was concluded. A TR band was used for hemostasis in the left radial artery. The patient was loaded with 600 mg of Plavix at the end of the procedure. He will be observed for 3 hours and then discharged to home. TOTAL SEDATION TIME: 51 minutes. TOTAL FLUORO TIME: 14.59 minutes. TOTAL AIR KERMA: 1420 mGy. TOTAL CONTRAST VOLUME: 75 mL. HEMODYNAMICS: AO 158/82, mean 111. CORONARY ANGIOGRAPHY: This is a right dominant circulation. Left main: This arises from left coronary cusp. It bifurcates into left anterior descending and circumflex vessels. Left main is free of disease. Left anterior descending: This has mild disease. Circumflex vessel: This is nondominant and has mild disease. Right coronary artery: This arises from the right coronary cusp. It is a large and dominant vessel. It has mild disease in the proximal segment. The mid segment has a 90% hazy stenosis, which was reduced to 0% by a Synergy XD drug-eluting stent. The distal RCA has minimal disease. SUMMARY OF THE FINDINGS: 1. Severe single-vessel coronary artery disease with 90% hazy stenosis in the mid RCA reduced to 0% by a Synergy XD drug-eluting stent. 2. Mild disease in the left coronary system. RECOMMENDATIONS: 1. Continue aspirin for life. 2. Plavix therapy for a minimum of 1 year after acute coronary syndrome presentation (unstable angina), and drug-eluting stenting of the RCA. 3. The patient will be started on Crestor 20 mg once daily. In the past, he had issues with lovastatin. 4. Lipid profile was drawn today, follow up on the results. 5. Follow up in Cardiology Clinic. The patient will be referred for cardiac rehab. Electronically Signed by: Lesli Jackson M.D. 04/18/2021 01:30 P Lesli Jackson M.D. Date Dict: 04/16/2021/12:47 P/Lesli Jackson M.D. Date Trans: 04/17/2021 04:38 A/bryant [id number] Normal [facility] LIPID PROFILEon 04-16-2021 Cholesterol [Mass/Vol] 168 mg/dL Normal 120-200 [facility] Comment on above: Result Comment: CHOL ESTEROL REFERENCE RANGE: 20 YEARS AND OLDER CARDIOVASCULAR RISK Less than 200 mg/dl Low Risk 200 to 239 mg/dl Borderline Risk 240 mg/dl and greater High Risk Performed By: #### [id number] #### [facility] [address] [place] [address], [facility] Cholesterol in HDL [Mass/Vol] 33 mg/dL Normal 23-92 [facility] Comment on above: Result Comment: Slig ht variation in normal range could be due to gender and/or age. HDL CHOLESTEROL REFERENCE RANGE: 20 years and older Cardiovascular Risk > or =60 mg/dL Desirable 40 TO 59 mg/dL Low Risk <40 mg/dL High Risk Performed By: #### 4 [id number] #### [facility] [address] [place] [address], [facility] Cholesterol in LDL [Mass/Vol] 119 mg/dL Normal 0-130 [facility] Comment on above: Result Comment: LDL IS A CALCULATION LDL IS ONLY VALID IF THE TRIG IS LESS THAN 400. Performed By: #### 4 [id number] #### [facility] [address] [place] [address], [facility] Cholesterol.total/Ch olesterol in HDL [Mass ratio] 5.1 {ratio} High .0-4.5 [facility] Comment on above: Performed By: #### 4 [id number] #### [facility] [address] [place] [address], [facility] NON-HDL CHOLESTEROL 135 mg/dL Normal [facility] Comment on above: Performed By: #### 4 [id number] #### [facility] [address] [place] [address], [place] Triglyceride [Mass/Vol] 82 mg/dL Normal 40-149 [facility] Comment on above: Result Comment: TRIG LYCERIDE REFERENCE RANGE: 20 YEARS AND OLDER CARDIOVASCULAR RISK LESS THAN 150 mg/dl LOW RISK 150 TO 199 mg/dl BORDERLINE RISK 200 mg/dl AND GREATER HIGH RISK Performed By: #### 4 [id number] #### [facility] [address] [place] [address], [place] VLDL CHOL 16 mg/dL Normal 0-40 [facility] Comment on above: Performed By: #### 4 [id number] #### [facility] [address] Vital Signs Date Time Vital Sign Value Performing Clinician Facility 10-18-2023 10:17-0400 Body height 177.8 cm [facility] 10-18-2023 10:17-0400 Body mass index (BMI) [Ratio] 48.6 kg/m2 [facility] 10-18-2023 10:17-0400 Body weight 153.76 kg [facility] 10-18-2023 10:17-0400 Diastolic blood pressure 69 mm[Hg] [facility] 10-18-2023 10:17040 Heart rate 56 /min [facility] 10-18-2023 10:17-0400 Systolic blood pressure 120 mm[Hg] [facility] 08-17-2023 09:25-040 Body height 177.8 cm [facility] 08-17-2023 09:25-0400 Body mass index (BMI) [Ratio] 108.5 kg/m2 [facility] 08-17-2023 09:25-0400 Body mass index (BMI) [Ratio] 49.2 kg/m2 [facility] 08-17-2023 09:25-0400 Body weight 343 kg [facility] 08-17-2023 09:25-0400 Body weight 155.58 kg [facility] 08-17-2023 09:25-0400 Diastolic blood pressure 70 mm[Hg] [facility] 08-17-2023 09:25-0400 Systolic blood pressure 120 mm[Hg] [facility] 07-08-2023 10:18-0400 Body height 177.8 cm [facility] 07-08-2023 10:18-0400 Body mass index (BMI) [Ratio] 48.3 kg/m2 [facility] 07-08-2023 10:18-0400 Body weight 152.86 kg [facility] 07-08-2023 10:18-0400 Diastolic blood pressure 79 mm[Hg] [facility] 07-08-2023 10:18-0400 Heart rate 66 /min [facility] 07-08-2023 10:18-0400 Systolic blood pressure 148 mm[Hg] [facility] 12-31-2021 11:30-0400 Body height 182.88 cm Ayden Tanner II Other [facility] Other 12-31-2021 11:30-0400 Body mass index (BMI) [Ratio] 44.48 kg/m2 Ayden Quinnle II Other [facility] Other 12-31-2021 11:30-0400 Body weight 148.78 kg Ayden Quinnle II Other [facility] Other Encounters Encounter Date Encounter Type Care Provider Facility Start: 10-18-2023 End: 10-18-2023 ambulatory [facility] Work Phone: Start: 10-18-2023 End: 10-18-2023 Patient encounter procedure [facility] Physician [facility] Work Phone: Start: 08-17-2023 End: 08-17-2023 ambulatory [facility] Work Phone: Start: 08-17-2023 End: 08-17-2023 Patient encounter procedure [facility] Physician [facility] Work Phone: Start: 07-13-2023 Patient encounter procedure [facility] Start: 07-08-2023 End: 07-08-2023 ambulatory [facility] Work Phone: Start: 07-08-2023 End: 07-08-2023 Patient encounter procedure [facility] Work Phone: Start: 04-01-2023 End: 04-01-2023 ambulatory [facility] Start: 01-18-2023 End: 01-18-2023 ambulatory Desi Barth Other [employer] Other Start: 01-18-2023 Telephone encounter Desi Barth [facility] Start: 12-02-2022 End: 12-02-2022 ambulatory Desi Barth Other [facility] Other Start: 12-02-2022 Telephone encounter Desi Barth [facility] Start: 12-01-2022 End: 12-01-2022 ambulatory Desi Barth Other [facility] Other Start: 12-01-2022 Telephone encounter Desi Barth [facility] Start: 08-14-2022 End: 08-14-2022 ambulatory [facility] Start: 04-30-2022 End: 05-01-2022 ambulatory [facility] Facility:[facility]1 Start: 03-30-2022 ambulatory [facility] Facility :[facility] Start: 12-31-2021 Office outpatient ne w 45 minutes Ayden Tanner II [facility] Start: 12-31-2021 End: 12-31-2021 ambulatory MD Desi Barth Work Phone: [employer] Other Start: 12-31-2021 End: 12-31-2021 Patient encounter procedure MD Desi Barth Work Phone: [facility] Start: 11-27-2021 Adult health examination Desi Barth Other [employer] Other Start: 11-27-2021 End: 11-28-2021 ambulatory DESI BARTH Facility:[facility] Start: 11-23-2021 End: 11-24-2021 ambulatory DESI BARTH Facility:[facility] Start: 09-01-2021 End: 09-02-[address] LESLI JACKSON Facility:[facility] Start: 07-02-[address] LESLI JACKSON Fac ility:[facility] Start: 05-15-2021 End: 08-21-[address] LESLI AJCKSON Facility:[facility] Start: 04-16-2021 End: 04-17-2021 ambulatory REFERRED SELF Facility:[facility] Procedures Date Procedure Procedure Detail Performing Clinician Start: 12-31-2021 Plain X-ray of left hip MD Desi Barth Work Phone: Screening for malign ant neoplasm of prostate Desi Barth Other Plan of Treatment Date Care Activity Detail Author Comprehensive metabo lic 2000 panel - Serum or Plasma [facility] enter Microalbumin [Mass/volume] in Urine [facility] Payers Date Payer Category Payer Medicare [id number] 2. [id number] 1960 Self-pay [id number] 1960 Unknown [id number] 1950 Unknown [id number] 2.16.8 [id number] 1950 Unknown [id number] 2.16.84 [id number] 1950 Unknown [id number] 2.16.84 [id number] 1950 Unknown [id number] 2.16.84 [id number] 1950 Unknown [id number] 2.16.84 [id number] 1950 Unknown [id number] 2.16.84 [id number] 1950 Unknown [id number] 2.16.84 [id number] 1950 Unknown [id number] 2.16.84 [id number] Medicare Medicare [id number] Unknown [id number] 2.16.8 [id number] Social History Date Type Detail Facility Sex Assigned At [employer] Other Start: 1950 Sex Assigned At Male F [facility] Start: 08-17-2023 Tobacco smoking stat [facility] Never smoked tobacco (finding) [facility] Medical Equipment Procedure Code Equipment Code Equipment Origin al Text Equipment Identifier Dates Capsule endoscopy, for patency of lumen evaluation Video capsule endoscopy system [id number] FDA Start: 05-13-2020 Clinical Notes 03-15-2020 to 04-01-2023 Note Date & Type Note Facility 04-01-2023 Note [place] Cardiology - [facility] [place] Prasad is a 72 y.o. year old male patient being seen for 6 mo follow up CAD, hyperlipidemia, and hypertension. He is no longer taking Plavix. Denies chest pain, SOB, and LE edema. Patient Active Problem List Diagnosis Chest pain Delirium Disorder of sacrum Lumbosacral spondylosis without myelopathy Spinal stenosis of lumbar region Coronary artery disease involving [place] coronary artery of [place] heart without angina pectoris Dyslipidemia associated with type 2 diabetes mellitus (CMS/HCC) Hypertension associated with diabetes (CMS/HCC) Mixed hyperlipidemia Other fatigue Bilateral lower extremity edema Family History Problem Relation Name Age of Onset No Known Problems Mother No Known Problems Father Social History Tobacco Use Smoking status: Former Types: Cigarettes Smokeless tobacco: Never Substance Use Topics Alcohol use: Yes Comment: occasional LUIS ARMANDO Wiley is seen in follow-up. He was initially seen on 04/11/2021 as a new patient referred from Dr. Barth's office for chest pain. He is a 72-year-old man with prior history of hypertension, diabetes, and hyperlipidemia. He is currently on medications for hypertension and diabetes. He takes aspirin 81 mg daily. He used to be on lovastatin in the past but he said that it made him eat a lot and was stopped. He is currently maintained on rosuvastatin 20 mg daily. In late February 2021 he was admitted to the [facility] with chest pain. His troponin was negative. His echocardiogram was within normal limits. He was discharged to undergo a stress test as an outpatient. He had another episode of chest pain suggestive of angina a week later. He presented to undergo a stress test on 04/03/2021 and following injection of Lexiscan he had reportedly some T wave changes. Note that his baseline ECG showed ST-T wave abnormalities suggestive of ischemia. He was sent to the emergency room where his troponin was negative. He was then discharged home. He was evaluated on 04/11/2021 and referred for cardiac catheterization on 04/16/2021 and underwent a drug-eluting stent to 90% mid RCA hazy stenosis. Plavix was stopped as he completed the required duration of DAPT. Today he reports that he has done well after the procedure and has had no recurrence of chest pain. No shortness of breath on exertion. He has mild lower extremity edema. Review of Systems Cardiovascular: Positive for leg swelling. Negative for chest pain, dyspnea on exertion, irregular heartbeat, orthopnea, palpitations and syncope. Respiratory: Negative for cough and shortness of breath. Musculoskeletal: Negative for arthritis, falls and neck pain. Gastrointestinal: Negative for diarrhea and dysphagia. Neurological: Negative for light-headedness and loss of balance. Objective Visit Vitals BP 146/77 (BP Location: Left wrist, Patient Position: Sitting) Pulse 53 Ht 1.829 m (6') Wt (!) 153 kg (338 lb) SpO2 95% BMI 45.84 kg/m??? Smoking Status Former BSA 2.79 m??? Physical Exam Constitutional: Appearance: He is well-developed. He is obese. He is not ill-appearing. HENT: Head: Normocephalic and atraumatic. Nose: Nose normal. Eyes: General: No scleral icterus. Pupils: Pupils are equal, round, and reactive to light. Neck: Thyroid: No thyromegaly. Vascular: No JVD. Cardiovascular: Rate and Rhythm: Normal rate and regular rhythm. Pulses: Radial pulses are 2+ on the right side and 2+ on the left side. Heart sounds: Normal heart sounds. No murmur heard. No friction rub. No gallop. Pulmonary: Effort: Pulmonary effort is normal. No respiratory distress. Breath sounds: Normal breath sounds. No wheezing or rales. Chest: Chest wall: No tenderness. Abdominal: General: Bowel sounds are normal. There is no distension. Palpations: Abdomen is soft. Tenderness: There is no abdominal tenderness. Musculoskeletal: General: No swelling. Cervical back: Neck supple. Skin: General: Skin is warm and dry. Neurological: General: No focal deficit present. Mental Status: He is alert and oriented to person, place, and time. Psychiatric: Mood and Affect: Mood normal. Behavior: Behavior is cooperative. Judgment: Judgment normal. Allergies No Known Allergies Medications Current Outpatient Medications: aspirin 81 mg EC tablet, aspirin 81 mg tablet,delayed release TAKE 1 TABLET BY MOUTH EVERY 24 HOURS, Disp: , Rfl: glipiZIDE XL (Glucotrol XL) 10 mg 24 hr tablet, glipizide ER 10 mg tablet, extended release 24 hr TAKE 1 TABLET BY MOUTH ONCE DAILY, Disp: , Rfl: metFORMIN (Glucophage) 1,000 mg tablet, metformin 1,000 mg tablet TAKE 1 TABLET BY MOUTH TWICE DAILY, Disp: , Rfl: amLODIPine (Norvasc) 10 mg tablet, Take 1 tablet (10 mg) by mouth in the morning., Disp: 90 tablet, Rfl: 3 isosorbide mononitrate ER (Imdur) 60 mg 24 hr tablet, Take 1 tablet (60 mg) by (more content not included)... [facility] 08-14-2022 Note Will check thyroid l evel, cbc, bmp and Vitamin D level- also send results to Dr Barth [facility] 08-14-2022 Note Will start lasix 40 mg prn for 2-3 days for edema, repeat as needed. [facility] 08-14-2022 Note [facility] CARDIOLOGY PROGR ESS NOTE HPI: Saurabh Prasad is a 71 y.o. male here for CAD, HTN, HPL, Obesity. C/O generalized fatigue and no ambition most days. Admits that he walks about 1- 1 1/2 miles a day without chest pain or shortness of breath. Denied any recent illness, hospitalization, covid. States that he has gained about 20 pounds since cardiac cath, and feels the weight gain is r/t statin. Visit Vitals BP 121/73 (BP Location: Left wrist, Patient Position: Sitting) Pulse 59 Ht 1.829 m (6') Wt (!) 156 kg (345 lb) SpO2 94% BMI 46.79 kg/m??? Smoking Status Former BSA 2.82 m??? No Known Allergies Medications: Current Outpatient Medications on File Prior to Visit Medication Sig Dispense Refill amLODIPine (Norvasc) 10 mg tablet Take 1 tablet (10 mg) by mouth in the morning. 90 tablet 3 aspirin 81 mg EC tablet aspirin 81 mg tablet,delayed release TAKE 1 TABLET BY MOUTH EVERY 24 HOURS clopidogrel (Plavix) 75 mg tablet Take 75 mg by mouth in the morning. glipiZIDE XL (Glucotrol XL) 10 mg 24 hr tablet glipizide ER 10 mg tablet, extended release 24 hr TAKE 1 TABLET BY MOUTH ONCE DAILY losartan-hydrochlorothiazide (Hyzaar) 100-25 mg tablet losartan 100 mg-hydrochlorothiazide 25 mg tablet TAKE 1 TABLET BY MOUTH ONCE DAILY metFORMIN (Glucophage) 1,000 mg tablet metformin 1,000 mg tablet TAKE 1 TABLET BY MOUTH TWICE DAILY metoprolol tartrate (Lopressor) 50 mg tablet Take 1 tablet by mouth twice daily 180 tablet 3 rosuvastatin (Crestor) 20 mg tablet Take 1 tablet by mouth once daily 90 tablet 3 isosorbide mononitrate ER (Imdur) 30 mg 24 hr tablet Take 1 tablet by mouth once daily for 90 days 90 tablet 3 No current facility-administered medications on file prior to visit. Physical Exam: Constitutional: Appearance: Normal appearance. Without apparent distress, obese HENT: Head: Normocephalic and atraumatic. Nose: Nose normal. Mouth/Throat: Mouth: Mucous membranes are moist. Eyes: Extraocular Movements: Extraocular movements intact. Conjunctiva/sclera: Conjunctivae normal. Neck: Vascular: No JVD. Cardiovascular: Rate and Rhythm: Normal rate and regular rhythm. Pulses: Dorsalis pedis pulses are 3 on the right side and 3on the left side. Posterior tibial pulses are 3 on the right side and 3 on the left side. Heart sounds: Normal heart sounds, S1 normal and S2 normal. Pulmonary: Effort: Pulmonary effort is normal. Breath sounds: Normal breath sounds. Abdominal: General: Bowel sounds are normal. Palpations: Abdomen is soft. Musculoskeletal: General: Normal range of motion. Cervical back: Normal range of motion. Right lower le+ pitting edema. Left lower le+ pitting edema. Skin: General: Skin is warm and dry. Capillary Refill: Capillary refill takes less than 2 seconds. Neurological: General: No focal deficit present. Mental Status: alert and oriented to person, place, and time. Psychiatric: Mood and Affect: Mood normal. Behavior: Behavior normal. Thought Content: Thought content normal. Judgment: Judgment normal. Labs: 04/30/22 renal function and liver function normal Lipid profile at goal Last lab values have been reviewed CV Testing: Cardiac catheterization 04/16/2021: 1. Severe single-vessel coronary artery disease with 90% hazy stenosis in the mid RCA reduced to 0% by a Synergy XD drug-eluting stent. 2. Mild disease in the left coronary system. Lipid profile 04/16/2021: Cholesterol 168, triglycerides 82, HDL 33, LDL 119. Echocardiogram 03/06/2021: Normal ventricular function, no valvular dysfunction, normal right-sided pressures, no pericardial effusion. ECG 04/03/2021: Sinus rhythm, moderate ST depression, T wave abnormality possible lateral and inferior ischemia. ECG 02/27/2020: Sinus rhythm, first-degree AV block. Blood testing 04/03/2021: Hematocrit 41.7, hemoglobin 13.4, platelets 248, BUN 17, creatinine 0.77, potassium 4.5. Assessment/Plan: Mixed hyperlipidemia Continue crestor- lipid level at goal Coronary artery disease involving [place] coronary artery of [place] heart without angina pectoris Coronary artery disease is Continue GDMT- ASA, plavix, metoprolol, imdur and crestor continue risk factor modifications- heart healthy diet, regular exercise as tolerated and continue all medications. Hypertension associated with diabetes ([facility]) Hypertension is currently well controlled= 121/73 Continue losartan/HCTZ, metorprolol and imdur Renal function normal Bilateral lower extremity edema Will start lasix 40 mg prn for 2-3 days for edema, repeat as needed. Other fatigue Will check thyroid level, cbc, bmp and Vitamin D level- also send results to Dr Barth RTC 3-6 months Recommended pt to f/U with PCP for generalized fatigue [facility] 08-14-2022 Note Patient here for 6 m o follow up CAD, hypertension, and hyperlipidemia. Had labs in Apr 2022. Denies chest pain. Says his SOB w/ exertion and LE edema remains unchanged. Review of Systems HENT: Positive for hearing loss. Cardiovascular: Positive for dyspnea on exertion and leg swelling. Musculoskeletal: Positive for arthritis and joint pain. Neurological: Positive for headaches. All other systems reviewed and are negative. [facility] 08-14-2022 Note Hypertension is curr ently well controlled= 121/73 Continue losartan/HCTZ, metorprolol and imdur Renal function normal [facility] 08-14-2022 Note Coronary artery dise ase is Continue GDMT- ASA, plavix, metoprolol, imdur and crestor continue risk factor modifications- heart healthy diet, regular exercise as tolerated and continue all medications. [facility] 08-14-2022 Note Continue crestor- lipid level at goal [facility] 12-31-2021 Evaluation note Encounter Date Diagnosis Assessment Notes Dec, Left hip pain (ICD-10 - M25.552) Dec, Other I do long discussion with the patient regarding his x-ray findings. 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 At this point I think that he probably flared up some hip bursitis as he tells me this is gone on in the past before. Fortunately he has done well and this has improved to where he is asymptomatic at this point. Recommended that he continue all activities as tolerated if he has issues in the future to give me a call. [employer] Other 09-15-2022 NotePROCEDURE: XR HIP LT 2 3V W PELVIS HISTORY: Pain of left hip joint ; chronic COMPARISON: None. FINDINGS: BONES:Slight narrowing of the superior aspect of the joint space and tiny degenerative osteophyte along the superior rim of the acetabulum. Fracture, dislocation, bone lesion. SOFT TISSUES:No visible soft tissue swelling. EFFUSION:None visible. OTHER: Metallic foreign body projecting over left pelvis suspected to be within overlying clothing. IMPRESSION: 1. Minimal degenerative changes of the left hip joint. Electronically authenticated by: JANE HILL Date: 2021-11-27 10:53[facility]01-01-2021 History general Narrative - Reported* Type Description Date Medical History diabetes Medical History hypertension Surgical History Problem Title : cataracts remov ed, Problem Status : Active, Surgical History Problem Title : Enid noscopy, EGD - Dr. 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, Problem Status : Active, Surgical History Problem Title : R an kle fracture w 2 pins, Problem Status : Active, Surgical History Problem Title : Skin graft to left hand from accident, Problem Status : Active, Surgical History Problem Title : Vitrectomy 2019 , Problem Status : Active, [employer] Other Evaluation noteNo assessment information available [facility] Work Phone: Evaluation noteNo InformationNort Thinker Thing Other Evaluation note* Diagnosis Onset Date Resolution Status Essential (primary) hypertension acute Hypertension acute Screening PSA (prostate specific antigen) acute Type 2 diabetes mellitus with hyperglycemia acute [facility] Work Phone: Evaluation note* Diagnosis Onset Date Resolution Status Essential (primary) hypertension acute Hypertension acute Medicare annual wellness visit, subsequent acute Screening PSA (prostate specific antigen) acute Type 2 diabetes mellitus with hyperglycemia acute [facility] Work Phone: Evaluation note* Diagnosis Onset Date Resolution Status Foreign body acute [facility] Work Phone: Hisuaf[employer] general Narrative - Reported* Type Description Date Medical History diabetes Medical History hypertension Surgical History hernia repair Surgical History vasectomy Surgical History pilonidal cyst [employer] Other Summary Purpose Family History Relationship Condition Age at Onset Recorded Date/T [place] father Malignant neoplasm of prostate Unknown Relationship Condition Age at Onset Recorded Date/T [place] father Malignant neoplasm of prostate Unknown father Unknown Not Specified Unknown Relationship Condition Age at Onset Recorded Date/T [place] father Malignant neoplasm of prostate Unknown father Unknown mother Unknown Advance Directives Advance Directive Response Recorded Date/ Time Advance Directives No April 04, 2020 1:37pm Chief Complaint and Reason for Visit Chief Complaint Medicare Wellness Reason for Visit Essential (primary) hypertension Hypertension Screening PSA (prostate specific antigen) Type 2 diabetes mellitus with hyperglycemia Chief Complaint Medicare Wellness splinter in back Reason for Visit Essential (primary) hypertension Hypertension Medicare annual wellness visit, subsequent Screening PSA (prostate specific antigen) Type 2 diabetes mellitus with hyperglycemia Chief Complaint splinter in back 4 month f/u Reason for Visit Foreign body Additional Source Comments (unrecognized sect ion and content) No Status Records FoundNo Status Records FoundNo Status Records FoundNo Status Records Found INFORMATION SOURCE (unrecogn ized section and content) DATE CREATED AUTHOR 04/18/2021 [facility] DATE CREATED AUTHOR AUTHOR'S ORGANIZ ATION 01/07/2022 [facility] DATE CREATED AUTHOR AUTHOR'S ORGANIZ ATION 05/06/2022 [facility] DATE CREATED AUTHOR AUTHOR'S ORGANIZ ATION 04/02/2023 [facility] REASON FOR VISIT (unrecogniz ed section and content) CONSULT DESI BARTH LT HIP PAIN WX TB WILL BRING DISCRefillrefillrefill Care Teams (unrecognized sec tion and content) Team Status: Inactive Member Role Status Dates Desi Barth MD Primary Care Provider Active Ayden Tanner II, MD Attending Provider Active Team Status: Active Member Role Status Dates Desi Barth MD Primary Care Provider Active Team Status: Inactive Member Role Status Dates Desi Barth MD Primary Care Provide r, Attending Provider Active Start: July 08, 2023 End: July 08, 2023 Team Status: Inactive Member Role Status Dates Desi Barth MD Primary Care Provider Active Start: August 17, 2023 End: August 17, 2023 Noemi Galindo APRN [employer] Attending Provider Act jay Start: August 17, 2023 End: August 17, 2023 Team Status: Inactive Member Role Status Dates Desi Barth MD Primary Care Provide r, Attending Provider Active Start: October 18, 2023 End: October 18, 2023 Goals (unrecognized section and content) Goals may be documented in a n alternate section FOR RECORDS PERTAINING TO PATIENTS WHO ARE OR HAVE BEEN ENROLLED IN A CHEMICAL DEPENDENCY/SUBSTANCEABUSE PROGRAM, SOME INFORMATION MAY BE OMITTED. This clinical summary was aggregated from multiple sources. Caution should be exercised in using it in the provision of clinical care. This summary normalizes information from multiple sources, and as a consequence, information in this document may materially change the coding, format and clinical context of patient data. In addition, data may be omitted in some cases. CLINICAL DECISIONS SHOULD BE BASED ON THE PRIMARY CLINICAL RECORDS. [facility]. provides no warranty or guarantee of the accuracy or completeness of information in this document.
--- NOTE | 2024-04-20 12:00 | XR_ITS ---
The [address] [address] Patient Name: CELIA MENDEZ MRN: [id number] date: 1950 Sex: M Assigned Patient Location: [facility] Current Patient Location: Accession/Order Number: [id number] Exam Date: 04/20/2024 11:45 Report Date: 04/21/2024 13:53 At the request of: KULDEEP BARTH Procedure: XR foot LT min 3V PROCEDURE: XR ankle LT min 3V, XR foot LT min 3V COMPARISON: 04/20/2024 HISTORY: Acute Left Ankle Pain FINDINGS: BONES:No acute fracture or dislocation. Moderate enthesopathic spurring of the calcaneus at the Achilles and plantar insertions. SOFT TISSUES:Negative. No visible soft tissue swelling. EFFUSION:None visible. OTHER: Negative. XR/XR foot LT min 3V IMPRESSION: Moderate calcaneal enthesopathy Electronically authenticated by: ALEKSANDRA JAUREGUI Date: 04/21/2024 13:53
--- NOTE | 2024-04-20 12:00 | XR_ITS ---
The [address] [address] Patient Name: CELIA MENDEZ MRN: [id number] date: 1950 Sex: M Assigned Patient Location: [employer] Current Patient Location: Accession/Order Number: [id number] Exam Date: 04/20/2024 11:45 Report Date: 04/21/2024 13:53 At the request of: KULDEEP BARTH Procedure: XR ankle LT min 3V PROCEDURE: XR ankle LT min 3V, XR foot LT min 3V COMPARISON: 04/20/2024 HISTORY: Acute Left Ankle Pain FINDINGS: BONES:No acute fracture or dislocation. Moderate enthesopathic spurring of the calcaneus at the Achilles and plantar insertions. SOFT TISSUES:Negative. No visible soft tissue swelling. EFFUSION:None visible. OTHER: Negative. XR/XR ankle LT min 3V IMPRESSION: Moderate calcaneal enthesopathy Electronically authenticated by: ALEKSANDRA JAUREGUI Date: 04/21/2024 13:53
== END 2024-04-20 11:34 | disposition home or self-care (01) ==
PROVIDERS: PCP Family Medicine; Visit Provider Family Medicine
DX: M25.572 Pain in left ankle and joints of left foot (principal); M77.32 Calcaneal spur, left foot
CPT/HCPCS: 73610; 73630

== ENCOUNTER 2024-05-16 19:58 | Observation (INO) | payer MEDICARE, SELFPAY ==
[2024-05-16] VITALS (18 sets, daily range): BP systolic 93–157; BP diastolic 58–75; PULSE 68–77; TEMP 37.1–38.3; O2SAT 88–94; BMI 45.3; BMI 44.3
--- OUTSIDE RECORDS SUMMARY | 2024-05-16 20:07 | XMS_ITS | CCD ---
Author Organization [facility] Care Team Providers Care Vaccinator Name Role Phone SELF, REFERRED Referring Unavailable DESI BARTH Primary Care Unavailable UNKNOWN, PROVIDER Admitting Unavailable UNKNOWN, PROVIDER Attending Unavailable Ayden Tanner II Unavailable MD Desi Barth Primary Care Provider MD Ayden Tanner II Attending Provider [phone] Ayden Tanner II Attending UnavailAyden Lezama II Admitting UnavailDesi Dueñas Primary Care Unavailable MOUKANIKOLAY, DR BALLESTEROS Admitting Unavailable MOUKARBEL, DR BALLESTEROS Attending Unavailable BARTH, DESI E Primary Care Unavailable BARTH, DESI E Consulting Unavailable LARY, DESI E Primary Care Unavailable TIN ROUSSEAU Admitting Unavailable TIN ROUSSEAU Attending Unavailable MARCELINA, DR ALEIDA Barajas Consulting Unavailable TIN ROUSSEAU Consulting Unavailable BAILEY GLASS Consulting Unavailable Aleksandra Mar Consulting Unavailable MOUKANIKOLAY, DR BALLESTEROS Admitting Unavailable MOUKARBEL, DR BALLESTEROS Attending Unavailable DESI BARTH E Primary Care Unavailable LUX LR Admitting Unavailable LUX LR Attending Unavailable DESI BARTH E Primary Care Unavailable MOUKARBEL, DR BALLESTEROS Admitting Unavailable MOUKARBEL, DR BALLESTEROS Attending Unavailable LARY, DESI E Primary Care Unavailable MOUKANIKOLAY, DR BALLESTEROS Consulting Unavailable LARY DESI E Admitting Unavailable BARTHDESI E Attending Unavailable BARTH, DESI E Primary Care Unavailable DR JANE HILL Consulting Unavailable BARTH DESI E Consulting Unavailable ADELINE LUX Admitting Unavailable LUX LR Attending Unavailable LARY, DESI E Primary Care Unavailable LUX LR Consulting Unavailable Lary Desi Unavailable ITZ DAVIES Attending Unavailable Allergies Allergy Classification Reported Allergen(s) Allergy Type Date of Onset Reaction(s) Facility (3 sources) atorvastatin Drug Allergy Comment:Myalgi as [employer] Other (3 sources) Allergies Reconciled Propensity to adverse reactions Unknown [employer] Other Medications Current Medications Medication Drug Class(es) Dates Sig (Normalized) Sig (Original) Acetaminophen / oxyCODONE (3 sources) Opioid Agonist Start: 11-27-2021 take 1 tablet by mouth three times daily as needed Endocet 10-325mg Endocet 10-325mg, 1 (one) tablet three times daily, as needed # 20, 11/27/2021, No Refill. Active oral three times daily, as needed for 7 *Pick strength-form from [employer] for [employer]* Nov, Active amLODIPine 10 mg oral tablet (8 sources) Dihydropyridine Calcium Channel Latrice Start: 07-07-2023 take 1 tablet by mouth once daily Amlodipine 10 mg tablet Active 1 TAB PO Daily July 06, 2023 11:00pm [employer] tablet Orally Once a day; Note: Source Status: Taking; Provider: Ciro Hensley II ( ) take 1 tablet by mouth once roshni y amLODIPine Besylate 10 MG 1 tablet Orally Once a day Active aspirin 81 mg chewable tablet (11 sources) Platelet Aggregation Inhibitor, Nonsteroidal Anti-inflammatory Drug Start: 07-07-2023 take 1 tablet by mouth once daily Aspirin 81 mg tablet,chewable Active 1 TAB PO Daily July 06, 2023 11:00pm [employer] tablet Orally Once a day; Note: Source Status: Taking; Provider: Ciro Hensley II ( ) Start: 11-27-2021 EQ Aspirin Dion lt Low Dose 81MG EQ Aspirin Adult Low Dose( 81MG Oral daily ) Active -Hx Entry Oral daily for 0 *Pick strength-form from [employer] for [employer]* Nov, Active take 1 tablet by polina th once daily Aspirin 81 81 MG 1 tablet Orally Once a day Active cephalexin 500 mg oral capsule (1 source) Cephalosporin Antibacterial Start: 04-20-2024 take 1 capsule by mouth three times daily Cephalexin 500 mg capsule Active 500 MG PO Three times daily 02 10April 20, 2024 12:00am clopidogrel 75 mg oral tablet (8 sources) [id number] Platelet Inhibitor Start: 07-07-2023 take 1 tablet by mouth once daily Clopidogrel 75 mg tablet Active 75 MG PO Daily July 06, 2023 11:00pm [employer] tablet Orally Once a day; Note: Source Status: Taking; Provider: Ciro Hensley II ( ) take 1 tablet by polina th every twenty-four hours Clopidogrel Bisulfate 75 MG 1 tablet Orally Once a day Active Diabetic shoe (1 source) Start: 02-18-2024 Diabetic shoe Active 0 .ROUTE .COMPLEX February 18, 2024 12:00am 1 pair; furosemide 20 mg oral tablet (3 sources) Loop Diuretic Start: 05-13-2021 take 1 tablet by mouth once daily Furosemide 20MG Furosemide 20MG, 1 (one) Tablet daily # 30, 05/13/2021, Ref. x2. Active Oral daily for 30 *Pick strength-form from [employer] for [employer]* May, Active glipiZIDE er 10 mg 24 hr extended release oral tablet (18 sources) Sulfonylurea Start: 07-26-2023 End: 04-17-2024 take 1 tablet by mouth once daily Glipizide 10 mg tablet extended release 24hr Active 0 .ROUTE .COMPLEX April 17, 2024 2:11pm Take 1 tablet by mouth once daily Start: 07-07-2023 End: 07-26-2023 take 1 tablet by mouth once daily Glipizide 10 mg tablet extended release 24hr Discontinued 10 MG PO Daily July 06, 2023 11:00pm July 26, 2023 11:46am Free[employer]Sig: Take 1 tablet by mouth once daily; Note: Source Status: Refill; Refills: 0; Qty: 90 Tablet; Provider: Lary Rodríguez Start: 02-02-2022 take 1 tablet by polina th once daily glipiZIDE 10mg glipiZIDE 10mg, 1 (one) Tablet daily # 30, 02/02/2022, Ref. x3. Active oral daily for 0 *Pick strength-form from [employer] for [employer]* Jan, Active take 1 tablet by polina th once daily glipiZIDE ER 10 MG Take 1 tablet by mouth once daily for 90 Active hydroCHLOROthiazide 25 mg / losartan potassium 100 mg oral tablet (11 sources) Thiazide Diuretic, Angiotensin 2 Receptor Latrice Start: 07-06-2023 End: 07-06-2023 take 1 tablet by mouth once daily Losartan-Hydrochlorothiazide 100-25 mg tablet Active 1 TAB PO Daily 90 July 06, 2023 8:37am Losartan Potassi um-HCTZ 100-25 MG Take 1 tablet by mouth once daily for 90 days for 90 Active 24 hr isosorbide mononitrate 30 mg extended release oral tablet (8 sources) Nitrate Vasodilator Start: 07-07-2023 take 1 tablet by mouth once daily in the morning Isosorbide Mononitrate 30 mg tablet extended release 24 hr Active 1 TAB PO Daily July 06, 2023 11:00pm FreeText[employer] tablet in the morning Orally Once [...] Oral daily for 90 *Pick strength-form from [employer] for [employer]* Mar, Active meloxicam 7.5 mg oral tablet (1 source) Nonsteroidal Anti-inflammatory Drug Start: 04-20-2024 take 1 tablet by mouth once daily Meloxicam 7.5 mg tablet Active 7.5 MG PO Daily April 20, 2024 12:00am metFORMIN hydrochloride 1000 mg oral tablet (20 sources) Biguanide Start: 10-11-2023 End: 03-24-2024 take 1 tablet by mouth twice daily at mealtime Metformin 1,000 mg tablet Active 0 .ROUTE .COMPLEX 180 March 24, 2024 1:13pm TAKE 1 TABLET BY MOUTH TWICE DAILY WITH A MEAL Start: 07-06-2023 End: 10-11-2023 take 1 tablet by mouth twice daily Metformin 1,000 mg tablet Discontinued 1000 MG PO Twice daily 180 July 06, 2023 8:37am October 11, 2023 1:19pm Start: 12-11-2021 take 1 tablet by polina th every twelve hours Metformin 1000 MG 1 tablet with a meal oral bid for 30 days Nov, Active Start: 04-10-2020 End: 07-06-2023 take 1 tablet by mouth twice daily Metformin 500 mg tablet Discontinued 500 MG PO Twice daily April 10, 2020 12:00am July 06, 2023 8:09am metoprolol tartrate 50 mg oral tablet (12 sources) beta-Adrenergic Latrice Start: 07-07-2023 End: 07-08-2023 take 1 tablet by mouth twice daily at mealtime Metoprolol Tartrate 50 mg tablet Active 50 MG PO Twice daily July 08, 2023 9:27am FreeText[employer] tablet with food Orally Twice a day; Note: Source Status: Taking; Provider: Ciro Hensley II ( ) take 1 tablet by polina th every twelve hours Metoprolol Tartrate 50 MG 1 tablet with food Orally Twice a day Active rosuvastatin calcium 20 mg oral tablet (8 sources) HMG-CoA Reductase Inhibitor Start: 07-07-2023 take 1 tablet by mouth once daily Rosuvastatin 20 mg tablet Active 20 MG PO Daily July 06, 2023 11:00pm Free[employer] tablet Orally Once a day; Note: Source Status: Taking; Provider: Ciro Hensley II ( ) take 1 tablet by polina th every twenty-four hours Rosuvastatin Calcium 20 MG 1 tablet Oral ly Once a day Active Completed/Discontinued Medications Medication Drug Class(es) Dates Sig (Normalized) Sig (Original) hydroCHLOROthiazide 12.5 mg oral tablet (8 sources) Thiazide Diuretic Start: End: take 1 tablet by mouth once daily Hydrochlorothiazide 12.5 mg tablet Discontinued 12.5 MG PO Daily April 10, 2020 12:00am July 06, 2023 8:09am losartan potassium 100 mg oral tablet (8 sources) Angiotensin 2 Receptor Latrice Start: End: take 1 tablet by mouth once daily Losartan 100 mg tablet Discontinued 100 MG PO Daily July 06, 2023 11:00pm Fabiana 25th, 2024 9:27am FreeText[employer] tablet Orally Once a day; Note: Source Status: Taking; Provider: Ciro Hensley II ( ) take 1 tablet by polina th every twenty-four hours Losartan Potassium 100 MG 1 tablet Orally Once a day Active Problems Active Problems Problem Classification Problem Date Documented Date Episodic/Chronic Abdominal pain (4 sources) Epigastric pain; Translations: [Epigastric pain] Episodic Coronary atherosclerosis and other heart disease (5 sources) Atherosclerotic heart disease of [place] coronary artery without angina pectoris; Translations: [ASHD [place] W/O ANGINA PECTORIS] Onset: 09-01-2021 Chronic Diabetes mellitus with complications (17 sources) Type 2 diabetes mellitus with other specified complication; Translations: [Type 2 diabetes mellitus with other circulatory complications] Onset: 04-30-2022 Chronic Diabetes mellitus without complication (1 source) Type 2 diabetes mellitus without complications; Translations: [TYPE 2 DM WITHOUT COMPLICATIONS] Onset: 11-26-2021 Chronic Disorders of lipid metabolism (1 source) Hyperlipidemia, unspecified; Translations: [HYPERLIPIDEMIA UNSPECIFIED] Onset: 05-05-2022 Chronic Essential hypertension (16 sources) Essential (primary) hypertension; Translations: [Essential hypertension] Onset: 11-26-2021 07-08-2023 Chronic Comment on above: Problem List clean-u p per request of Phys. EHR Cmte Hyperplasia of prostate (3 sources) Large prostate ; Translations: [Benign prostatic hyperplasia without lower urinary tract symptoms] Chronic Hypertension with complications and secondary hypertension (1 source) Hypertension secondary to endocrine disorders; Translations: [HYPERTENSION SECOND ENDOCRINE D/O] Onset: 05-05-2022 Chronic Nausea and vomiting (4 sources) Nausea; [...] Translations: [Pain in left hip] Episodic Other non-traumatic joint disorders (1 source) Acute ankle pain; Translations: [Pain in left ankle and joints of left foot] 04-20-2024 Episodic Other non-traumatic joint disorders (1 source) Pain in left ankle and joints of left foot; Translations: [Pain in joint, ankle and foot] 04-20-2024 Episodic Other nutritional; endocrine; and metabolic disorders [...] mass index (BMI) 45.0-49.9, adult] Chronic Other screening for suspected conditions (not mental disorders or infectious disease) (13 sources) CT of abdomen abnormal; Translations: [Abnormal findings on diagnostic imaging of other abdominal regions, including retroperitoneum] 07-08-2023 Episodic Residual codes; unclassified (3 sources) Immunization refused ; Translations: [Immunization not carried out because of patient refusal] Episodic Residual codes; unclassified (1 source) Foreign body 08-18-2023 Episodic Unclassified (1 source) Pain in left [...] 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] Onset: 05-15-2021 Episodic Other aftercare (1 source) 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; Translations: [ASSISTED CURRENT USE OF ASPIRIN] Onset: 11-26-2021 Episodic Other aftercare (1 source) longterm (current) use of oral hypoglycemic drugs; Translations: [ASSISTED USE ORAL HYPOGLYCEMIC DX] Onset: 11-26-2021 Episodic Other aftercare (1 source) Other discount clerk (current) drug therapy; Translations: [OTH ASSISTED CURRENT DRUG THERAPY] Onset: 11-26-2021 Episodic Other non-traumatic joint disorders (5 sources) Pain in left hip; Translations: [PAIN IN LEFT HIP] Onset: 11-27-2021 Episodic Screening and history of mental health and substance abuse codes (1 source) Personal history of nicotine dependence; Translations: [PERSONAL HISTORY OF NICOTINE DEPEND] Onset: 11-26-2021 Episodic Unclassified (1 source) LOW BACK PAIN, UNSPECIFIED; Translations: [LOW BACK PAIN, UNSPECIFIED] Onset: 11-23-2021 Results Test Name Value Interpretation Reference Range Facility Documentationon 05-12-2024 Documentation [id number] Prasad,Celia 1950 M Date Provider Department Center 05/12/2024 [id number], KARA HVCANTICOAG [facility] Family History Problem Relation Age of Onset No Known Problems Mother No Known Problems Father Family Status - Relation Status Age at Mother Father Reason for Visit and Comments: PharmD Cardiology Consult [Other] Normal [facility] Office Visiton 05-11-2024 Follow-up visit [id number] Celia Prasad 1950 M Date Provider Department Center 05/11/2024 ITZ DAVIDSON CARD [facility] Family History Problem Relation Age of Onset No Known Problems Mother No Known Problems Father Family Status - Relation Status Age at Mother Father Level of Service:25985 [place] OFFICE/OUTPATIENT ESTABLISHED LOW MDM 20 MIN Reason for Visit and Comments: Coronary Artery Disease [187] Hypertension [794184] Hyperlipidemia [182] Normal [facility] Basophils Auto (Bld) [#/Vol] on 02-18-2024 Basophils (Bld) [#/Vol] Automated basophil count 0.0-0.1 [facility] Basophils/100 WBC Auto (Bld) on 02-18-2024 Basophils/100 WBC (Bld) Automated basophil % 0.2-2.0 [facility] Eosinophils/100 WBC Auto (Bl d)on 02-18-2024 Eosinophils/100 WBC (Bld) Automated eosinophil % 0.9-7.0 [facility] Erythrocyte distribution wid th Auto (RBC) [Ratio]on 02-18-2024 Erythrocyte distribution width (RBC) [Ratio] Erythrocyte distribution width [Ratio] by Automated count 11.0-15.0 [facility] Estimated glomerular filtrat ion rate (GFR) non- Americanon 02-18-2024 GFR/1.73 sq M.predicted among non-blacks MDRD (S/P/Bld) [Vol rate/Area] Estimated glomerular filtration rate (GFR) non- >=60 mL/min/1.73m 2 [facility] Glucose mean value [Mass/vol ume] in Blood Estimated from glycated hemoglobinon 02-18-2024 Average glucose Estimated from glycated hemoglobin (Bld) [Mass/Vol] Glucose mean value [Mass/volume] in Blood Estimated from glycated hemoglobin [facility] Hematocrit Auto (Bld) [Volum e fraction]on 02-18-2024 Hematocrit (Bld) [Volume fraction] Hematocrit [Volume Fraction] of Blood by Automated count 42.0-54.0 [facility] Hemoglobin [Mass/volume] in Bloodon 02-18-2024 Hemoglobin (Bld) [Mass/Vol] Hemoglobin [Mass/volume] in Blood Low 14.0-18.0 [facility] Laboratory - Chemistry and C hemistry - challengeon 02-18-2024 Calcium [Mass/Vol] 9.2 mg/dL 8.5-10.1 [facility] Chloride [Moles/Vol] 103 mmol/L 98-107 [facility] CO2 [Moles/Vol] 30.4 mmol/L 21.0-32.0 [facility] Creatinine [Mass/Vol] 0.96 mg/dL 0.70-1.30 [facility] GFR/1.73 sq M.predicted MDRD (S/P/Bld) [Vol rate/Area] mL/min/{1.73_m2} >=60 mL/min/1.73m 2 [facility] Glucose [Mass/Vol] 141 mg/dL High 74-106 [facility] Potassium [Moles/Vol] 4.6 mmol/L 3.5-5.1 [facility] Sodium [Moles/Vol] 141 mmol/L 136-145 [facility] Urea nitrogen [Mass/Vol] 17.0 mg/dL 7.0-18.0 [facility] Urea nitrogen/Creatinine [Mass ratio] 17.7 mg/mg [facility] Laboratory - Hematology and Cell countson 02-18-2024 HbA1c (Bld) [Mass fraction] 7.4 % High 4.5-6.2 [facility] Comment on above: ADA RECOMMENDED LIMI T 4.0 - 6.0ADA THERAPEUTIC TARGET < 7.0ACTION SUGGESTED> 7.0 Immature granulocytes/100 WBC (Bld) 0.2 % 0.0-0.5 [facility] Leukocytes [#/volume] correc aarti for nucleated erythrocytes in Blood by Automated counon 02-18-2024 WBC corrected for nucl RBC Auto (Bld) [#/Vol] Leukocytes [#/volume] corrected for nucleated erythrocytes in Blood by Automated coun 4.0-11.0 [facility] Lymphocytes Auto (Bld) [#/Vo l]on 02-18-2024 Lymphocytes (Bld) [#/Vol] Lymphocytes [#/volume] in Blood by Automated count 1.2-3.8 [facility] Lymphocytes/100 WBC Auto (Bl d)on 02-18-2024 Lymphocytes/100 WBC (Bld) Lymphocytes/100 leukocytes in Blood by Automated count 20.5-60.0 [facility] MCH Auto (RBC) [Entitic mass ]on 02-18-2024 MCH (RBC) [Entitic mass] MCH [Entitic mass] by Automated count 25.9-34.0 [facility] MCHC Auto (RBC) [Mass/Vol]on 02-18-2024 MCHC (RBC) [Mass/Vol] MCHC [Mass/volume] by Automated count 29.9-35.2 [facility] MCV Auto (RBC) [Entitic vol] on 02-18-2024 MCV (RBC) [Entitic vol] MCV [Entitic volume] by Automated count 80.0-94.0 [facility] Monocytes Auto (Bld) [#/Vol] on 02-18-2024 Monocytes (Bld) [#/Vol] Automated blood monocyte count 0.3-0.8 [facility] Monocytes/100 WBC Auto (Bld) on 02-18-2024 Monocytes/100 WBC (Bld) Automated monocyte % 1.7-12.0 [facility] Neutrophils Auto (Bld) [#/Vo l]on 02-18-2024 Neutrophils (Bld) [#/Vol] Neutrophils [#/volume] in Blood by Automated count 1.4-6.5 [facility] Neutrophils/100 WBC Auto (Bl d)on 02-18-2024 Neutrophils/100 WBC (Bld) Automated neutrophil % 43.0-75.0 [facility] No Panel Informationon 02-17 Eosinophils # (Auto) 0.2 10 3/uL 0.0-0.7 [facility] Immature Granulocyte # (Auto) 0.02 10 3/uL 0.00-0.03 [facility] Platelet mean volume Auto (B ld) [Entitic vol]on 02-18-2024 Platelet mean volume (Bld) [Entitic vol] Platelet mean volume [Entitic volume] in Blood by Automated count Low 9.5-13.5 [facility] Platelets Auto (Bld) [#/Vol] on 02-18-2024 Platelets (Bld) [#/Vol] Platelets [#/volume] in Blood by Automated count 150-450 [facility] RBC Auto (Bld) [#/Vol]on RBC (Bld) [#/Vol] Erythrocytes [#/volume] in Blood by Automated count 4.70-6.10 [facility] Serum or plasma anion gap de terminationon 02-18-2024 Anion gap [Moles/Vol] Serum or plasma anion gap determination [facility] Cholesterol in LDL Calc [Mas s/Vol]on 07-08-2023 Cholesterol in LDL [Mass/Vol] 138.0 mg/dL [facility] Comment on above: <100 mg/dl [id number] 0-129 mg/dl NEAR OR ABOVE [id number] mg/dl BORDERLINE [id number] mg/dl HIGH>190 mg/dl VERY HIGH Cholesterol in VLDL Calc [Ma ss/Vol]on 07-08-2023 Cholesterol in VLDL [Mass/Vol] 42.0 mg/dL [facility] Estimated glomerular filtrat ion rate (GFR) non- Americanon 07-08-2023 GFR/1.73 sq M.predicted among non-blacks MDRD (S/P/Bld) [Vol rate/Area] mL/min/{1.73_m2} >=60 [facility] Globulin Calc (S) [Mass/Vol] on 07-08-2023 Globulin (S) [Mass/Vol] 4.1 g/dL [facility] Glucose mean value [Mass/vol ume] in Blood Estimated from glycated hemoglobinon 07-08-2023 Average glucose Estimated from glycated hemoglobin (Bld) [Mass/Vol] 197 mg/dL [facility] Laboratory - Chemistry and C hemistry - challengeon 07-08-2023 Albumin [Mass/Vol] 3.5 g/dL 3.4-5.0 [facility] ALP [Catalytic activity/Vol] 90 U/L 46-116 [facility] ALT [Catalytic activity/Vol] 39 U/L 16-63 [facility] AST [Catalytic activity/Vol] 36 U/L 15-37 [facility] Bilirubin [Mass/Vol] 0.4 mg/dL 0.2-1.0 [facility] Calcium [Mass/Vol] 9.4 mg/dL 8.5-10.1 [facility] Chloride [Moles/Vol] 101 mmol/L 98-107 [facility] Cholesterol [Mass/Vol] 219 mg/dL <=200 [facility] Cholesterol in HDL [Mass/Vol] 39 mg/dL 40-60 [facility] Comment on above: > or =60 mg/dl - LOW CARDIOVASCULAR RISK<40 mg/dl - HIGH CARDIOVASCULAR RISK CO2 [Moles/Vol] 30.3 mmol/L 21.0-32.0 [facility] Creatinine [Mass/Vol] 0.83 mg/dL 0.70-1.30 [facility] GFR/1.73 sq M.predicted MDRD (S/P/Bld) [Vol rate/Area] mL/min/{1.73_m2} >=60 [facility] Glucose [Mass/Vol] 137 mg/dL 74-106 [facility] Potassium [Moles/Vol] 4.3 mmol/L 3.5-5.1 [facility] Protein [Mass/Vol] 7.6 g/dL 6.4-8.2 [facility] Sodium [Moles/Vol] 140 mmol/L 136-145 [facility] Triglyceride [Mass/Vol] 210 mg/dL <=150 [facility] TSH Qn 3.188 m[IU]/L 0.358-3.740 [facility] Urea nitrogen [Mass/Vol] 12.0 mg/dL 7.0-18.0 [facility] Urea nitrogen/Creatinine [Mass ratio] 14.5 mg/mg [facility] Laboratory - Hematology and Cell countson 07-08-2023 HbA1c (Bld) [Mass fraction] 8.5 % 4.5-6.2 [facility] Comment on above: ADA RECOMMENDED LIMI T 4.0 - 6.0ADA THERAPEUTIC TARGET < 7.0ACTION SUGGESTED> 7.0 Microalbumin [Mass/volume] i n Urineon 07-08-2023 Albumin DL <= 20 mg/L (U) [Mass/Vol] 2.4 mg/dL <=30.0 [facility] No Panel Informationon 07-07 Prostate Specific Antigen Screen 0.61 ng/mL <=4.00 [facility] Serum or plasma albumin/glob ulin mass ratioon 07-08-2023 Albumin/Globulin [Mass ratio] 0.9 {ratio} [facility] Serum or plasma anion gap de terminationon 07-08-2023 Anion gap [Moles/Vol] 13.0 mmol/L [facility] Serum or plasma total choles terol/high density lipoprotein (HDL) cholesterol mass ponce 07-08-2023 Cholesterol.total/Ch olesterol in HDL [Mass ratio] 5.6 {ratio} [facility] Comment on above: 3.3 - 4.4 LOW RISK4. 4 - 7.1 AVERAGE RISK7.1 - 11.0 MODERATE RISK>11.0 HIGH RISK LIPID PROFILEon 04-30-2022 CHOL-HDL RATIO NORM SEE BELOW Normal [facility] Comment on above: Result Comment: 3.3 - 4.4 LOW RISK 4.4 - 7.1 AVERAGE RISK 7.1 - 11.0 MODERATE RISK >11.0 HIGH RISK Performed By: #### L IPID, CMP #### [facility] [address] [place] [address] Dr. Alberta Stern Cholesterol [Mass/Vol] 105 mg/dL Normal <=200 [facility] Comment on above: Performed By: #### L IPID, CMP #### [facility] [address] [place] [address] Dr. Alberta Stern Cholesterol in HDL [Mass/Vol] 38 mg/dL Critically low 40-60 [facility] Comment on above: Performed By: #### L IPID, CMP #### [facility] [address] [place] [address] Dr. Alberta Stern Cholesterol in LDL [Mass/Vol] 46.6 mg/dL Normal [facility] Comment on above: Performed By: #### L IPID, CMP #### [facility] [address] [place] [address] Dr. Alberta Stern Cholesterol.total/Ch olesterol in HDL [Mass ratio] 2.8 {ratio} Normal [facility] Comment on above: Performed By: #### L IPID, CMP #### [facility] [address] [place] [address] Dr. Alberta Stern HDL NORMAL > or = 60 mg/dl - LOW CARDIOVASCULAR RISK <40 mg/dl - HIGH CARDIOVASCULAR RISK Normal [facility] Comment on above: Performed By: #### L IPID, CMP #### [facility] [address] [place] [address] Dr. Alberta Stern LDL CALC NORMAL SEE BELOW Normal [facility] Comment on above: Result Comment: <100 mg/dl OPTIMAL 100 - 129 mg/dl NEAR OR ABOVE OPTIMAL 130 - 159 mg/dl BORDERLINE HIGH 160 - 189 mg/dl HIGH >190 mg/dl VERY HIGH Performed By: #### L IPID, CMP #### [facility] [address] [place] [address] Dr. Alberta Stern Triglyceride [Mass/Vol] 102 mg/dL Normal <=150 [facility] Comment on above: Performed By: #### L IPID, CMP #### [facility] [address] [address] [address] Alberta Stern VLDL CALC 20.4 mg/dL Normal [facility] Comment on above: Performed By: #### L IPID, CMP #### [facility] [address] [address] [address] Alberta Stern PROF 14(COMP METB)on 023 Albumin [Mass/Vol] 3.5 g/dL Normal 3.4-5.0 [facility] Comment on above: Performed By: #### L IPID, CMP #### [facility] [address] [address] [address] Alberta Stern Albumin/Globulin [Mass ratio] 1.0 {ratio} [facility] [place] Comment on above: Performed By: #### L IPID, CMP #### [facility] [address] [place] [address] Dr. Alberta Stern ALP [Catalytic activity/Vol] 95 U/L Normal 46-116 [facility] [place] Comment on above: Performed By: #### L IPID, CMP #### [facility] [address] [address] [address] Alberta Stern ALT [Catalytic activity/Vol] 23 U/L Normal 16-63 [facility] [place] Comment on above: Performed By: #### L IPID, CMP #### [facility] [address] [address] [address] Alberta Stern Anion gap [Moles/Vol] 12.2 mmol/L Normal [facility] [place] Comment on above: Performed By: #### L IPID, CMP #### [facility] [address] [address] [address] Alberta Stern AST [Catalytic activity/Vol] 19 U/L Normal 15-37 [facility] [place] Comment on above: Performed By: #### L IPID, CMP #### [facility] [address] [address] [address] Alberta Stern Bilirubin [Mass/Vol] 0.4 mg/dL Normal 0.2-1.0 [facility] [place] Comment on above: Performed By: #### L IPID, CMP #### [facility] [address] [address] [address] Alberta Stern Calcium [Mass/Vol] 8.9 mg/dL Normal 8.5-10.1 [facility] Comment on above: Performed By: #### L IPID, CMP #### [facility] [address] [address] [address] Alberta Stern Chloride [Moles/Vol] 103 mmol/L Normal 98-107 [facility] [place] Comment on above: Performed By: #### L IPID, CMP #### [facility] [address] [address] [address] Alberta Stern CO2 [Moles/Vol] 29.2 mmol/L Normal 21.0-32.0 [facility] Comment on above: Performed By: #### L IPID, CMP #### [facility] [address] [place] [address] Dr. Alberta Stern Creatinine [Mass/Vol] 0.74 mg/dL Normal 0.70-1.30 [facility] [place] Comment on above: Performed By: #### L IPID, CMP #### [facility] [address] [place] [address] Dr. Alberta Stern EGFR-AF GREEK >60 Normal >=60 [facility] Comment on above: Performed By: #### L IPID, CMP #### [facility] [address] [place] [address] Dr. Alberta Stern EGFR-NON AF GREEK >60 Normal >=60 [facility] [place] Comment on above: Performed By: #### L IPID, CMP #### [facility] [address] [place] [address] Dr. Alberta Stern Globulin (S) [Mass/Vol] 3.6 g/dL Normal [facility] [place] Comment on above: Performed By: #### L IPID, CMP #### [facility] [address] [place] [address] Dr. Alberta Stern Glucose [Mass/Vol] 143 mg/dL Critically high 74-106 [facility] Comment on above: Performed By: #### L IPID, CMP #### [facility] [address] [address] [address] Alberta Stern Potassium [Moles/Vol] 4.4 mmol/L Normal 3.5-5.1 [facility] [place] Comment on above: Performed By: #### L IPID, CMP #### [facility] [address] [address] [address] Alberta Stern Protein [Mass/Vol] 7.1 g/dL Normal 6.4-8.2 [facility] Comment on above: Performed By: #### L IPID, CMP #### [facility] [address] [address] [address] Alberta Stern Sodium [Moles/Vol] 140 mmol/L Normal 136-145 [facility] Comment on above: Performed By: #### L IPID, CMP #### [facility] [address] [address] [address] Alberta Stern Urea nitrogen [Mass/Vol] 15.0 mg/dL Normal 7.0-18.0 [facility] [place] Comment on above: Performed By: #### L IPID, CMP #### [facility] [address] [address] [address] Alberta Stern Urea nitrogen/Creatinine [Mass ratio] 20.3 mg/mg Normal [facility] [place] Comment on above: Performed By: #### L IPID, CMP #### [facility] [address] [address] [address] Alberta Stern XR hip LT min 2V(w/wo pelvis )*on 12-31-2021 XR hip LT min 2V(w/wo pelvis)* [facility] [place] [address] XRay Report Signed Patient: Celia Prasad MR#: [id number] [id number] : 1950 Acct:[id number] Age/Sex: 71 / M ADM Date: 12/31/21 Loc: [place] Room: Type: [facility] Attending Dr: Ayden Tanner II, MD Copies [...] PROCESS.. Impression dictated by: Rivas Ortega Jr., D.O.12/31/2021 2:45 PM Dictation Location: [place] [address] Transcribed By: [facility] 12/31/21 1445 Dictated By: Rivas Ortega Jr, DO 12/31/21 1443 Signed By: 12/31/[address] [facility] [address] ABD/PELVIS WO CONon 11-24 CT ABD/PELVIS [...] BAILEY GLASS Date: 2021-11-23 22:10 Normal [facility] ER URINE PROFILEon 2 Bilirubin Ql (U) Negative Normal NEGATIVE The [facility] Comment on above: Performed By: #### U MICRO, ERUR #### [facility] [address] [address] [address] Alberta Stern Clarity (U) CLEAR Normal CLEAR [facility] [place] Comment on above: Performed By: #### U MICRO, ERUR #### [facility] [address] [address] [address] Alberta Stern Color (U) YELLOW Normal YELLOW [facility] [place] Comment on above: Performed By: #### U MICRO, ERUR #### [facility] [address] [address] [address] Alberta HILLD A micrscopic examination will be performed if indicated. Normal [facility] Comment on above: Performed By: #### U MICRO, ERUR #### [facility] [address] [address] [address] Alberta Stern Glucose Ql (U) Negative Normal NEGATIVE [facility] Comment on above: Performed By: #### U MICRO, ERUR #### [facility] [address] [address] [address] Alberta Stern Hemoglobin Ql (U) SMALL Abnormal NEGATIVE [facility] Comment on above: Performed By: #### U MICRO, ERUR #### [facility] [address] [address] [address] Alberta Stern Ketones Ql (U) TRACE Abnormal NEGATIVE [facility] Comment on above: Performed By: #### U MICRO, ERUR #### [facility] [address] [address] [address] Alberta Stern LEUKOCYTES Negative Normal NEGATIVE [facility] [place] Comment on above: Performed By: #### U MICRO, ERUR #### [facility] [address] [address] [address] Alberta Stern Nitrite Ql (U) Negative Normal NEGATIVE [facility] Comment on above: Performed By: #### U MICRO, ERUR #### [facility] [address] [place] [address] Dr. Alberta Stern pH (U) 6.0 [pH] Normal 5-9 [facility] [place] Comment on above: Performed By: #### U MICRO, ERUR #### [facility] [address] [place] [address] Dr. Alberta Stern SPEC GRAVITY 1.025 Normal 1.005-<=1.025 [facility] Comment on above: Performed By: #### U MICRO, ERUR #### [facility] [address] [place] [address] Dr. Alberta Stern UA PROTEIN Negative Normal NEGATIVE/ TRACE [facility] Comment on above: Performed By: #### U MICRO, ERUR #### [facility] [address] [place] [address] Dr. Alberta Stern UR MICRO IND INDICATED Normal [facility] Comment on above: Performed By: #### U MICRO, ERUR #### [facility] [address] [place] [address] Dr. Alberta Stern Urobilinogen Qn (U) 1.0 {Makenna'U}/dL Normal 0.2 - 1. 0 [facility] [place] Comment on above: Performed By: #### U MICRO, ERUR #### [facility] [address] [place] [address] Dr. Alberta Stern URINE MICROSCOPIC ONLYon BACTERIA NONE SEEN Normal NONE SEEN [facility] Comment on above: Performed By: #### U MICRO, ERUR #### [facility] [address] [place] [address] Dr. Alberta Stern Bacteria identified Cx Nom (U) NOT INDICATED Normal [facility] Comment on above: Performed By: #### U MICRO, ERUR #### [facility] [address] [place] [address] Dr. Alberta Stern CAST NONE SEEN Normal NONE SEEN [facility] Comment on above: Performed By: #### U MICRO, ERUR #### [facility] [address] [place] [address] Dr. Alberta Stern Crystals LM Nom (Urine sed) NONE SEEN Normal NONE SEEN [facility] Comment on above: Performed By: #### U MICRO, ERUR #### [facility] [address] [place] [address] Dr. Alberta Stern Epithelial cells LM Ql (Urine sed) RARE Normal NONE SEEN /RARE [facility] Comment on above: Performed By: #### U MICRO, ERUR #### [facility] [address] [address] [address] Alberta Stern MUCOUS NONE SEEN Normal NONE SEEN [facility] Comment on above: Performed By: #### U MICRO, ERUR #### [facility] [address] [place] [address] Dr. Alberta Stern RBC 20-50 Abnormal 0-2 [facility] Comment on above: Performed By: #### U MICRO, ERUR #### [facility] [address] [place] [address] Dr. Alberta Stern WBC NONE SEEN Normal NONE SEEN [facility] Comment on above: Performed By: #### U MICRO, ERUR #### [facility] [address] [place] [address] Dr. Alberta Stern XR LSPINE 2_3 VIEWSon [...] ALEKSANDRA MAR Date: 2021-11-23 20:12 Normal [facility] LIPID PROFILEon 09-01-2021 CHOL-HDL RATIO NORM SEE BELOW Normal [facility] Comment on above: Result Comment: 3.3 - 4.4 LOW RISK 4.4 - 7.1 AVERAGE RISK 7.1 - 11.0 MODERATE RISK >11.0 HIGH RISK Performed By: #### L IPID #### [facility] [address] [address] [address] Alberta Stern Cholesterol [Mass/Vol] 92 mg/dL Normal <=200 [facility] [place] Comment on above: Performed By: #### L IPID #### [facility] [address] [place] [address] Dr. Alberta Stern Cholesterol in HDL [Mass/Vol] 37 mg/dL Critically low 40-60 [facility] [place] Comment on above: Performed By: #### L IPID #### [facility] [address] [place] [address] Dr. Alberta Stern Cholesterol in LDL [Mass/Vol] 33.0 mg/dL Normal [facility] [place] Comment on above: Performed By: #### L IPID #### [facility] [address] [place] [address] Dr. Alberta Stern Cholesterol.total/Ch olesterol in HDL [Mass ratio] 2.5 {ratio} Normal [facility] [place] Comment on above: Performed By: #### L IPID #### [facility] [address] [place] [address] Dr. Alberta Stern HDL NORMAL > or = 60 mg/dl - LOW CARDIOVASCULAR RISK <40 mg/dl - HIGH CARDIOVASCULAR RISK Normal [facility] [place] Comment on above: Performed By: #### L IPID #### [facility] [address] [place] [address] Dr. Alberta Stern LDL CALC NORMAL SEE BELOW Normal [facility] Comment on above: Result Comment: <100 mg/dl OPTIMAL 100 - 129 mg/dl NEAR OR ABOVE OPTIMAL 130 - 159 mg/dl BORDERLINE HIGH 160 - 189 mg/dl HIGH >190 mg/dl VERY HIGH Performed By: #### L IPID #### [facility] [address] [place] [address] Dr. Alberta Stern Triglyceride [Mass/Vol] 110 mg/dL Normal <=150 [facility] [place] Comment on above: Performed By: #### L IPID #### [facility] [address] [place], [place] [address] Dr. Alberta Stern VLDL CALC 22.0 mg/dL Normal [facility] Comment on above: Performed By: #### L IPID #### [facility] [address] [place], [place] [address] Dr. Alberta Stern Cardiovascular Lab Reporton 04-17-[address] [facility] Patient Name: [facility] Celia MR #: [id number] Department of Physician: [facility] Raj Jackson M.D. Division of Service Date: 04/16/2021 Cardiology Birthdate: 1950 Adult Cardiovascular Room #: [facility] [address] [place] [address] Cardiovascular Laboratory Report INDICATION: The patient is [...] the informed consent. He was brought to manager laboratory in a fasting state. The left wrist area was prepped and draped in usual fashion. Micropuncture technique was used for access in the left radial artery. A 6-Micronesian x 11 cm sheath was placed. Verapamil was given through the sheath and heparin was administered intravenously. Bilateral selective coronary angiography was then performed using 6-Micronesian JL4 and JR4 diagnostic catheters. Catheters were removed. Additional heparin was given and therapeutic ACT confirmed during the rest of the procedure and additional heparin given as needed. A 6-Micronesian JR4 guiding catheter was advanced and used to engage the right coronary ostium. A Comvivawater wire was advanced into the distal RCA. Balloon dilatation in the mid RCA was performed using an Emerge 3.5 x 20 mm balloon inflated at 8 atmospheres. Angiography revealed suboptimal results. This was treated using a Synergy XD 4.0 x 24 mm drug-eluting stent deployed at 11 atmospheres and post dilated using NC Quantum [place] 4.0 x 15 mm noncompliant balloon inflated [...] Jackson M.D. Date Trans: 04/17/2021 04:38 A/bryant [id number] Normal [facility] LIPID PROFILEon 04-16-2021 Cholesterol [Mass/Vol] 168 mg/dL Normal 120-200 [facility] Comment on above: Result Comment: CHOL ESTEROL REFERENCE RANGE: 20 YEARS AND OLDER CARDIOVASCULAR RISK Less than 200 mg/dl Low Risk 200 to 239 mg/dl Borderline Risk 240 mg/dl and greater High Risk Performed By: #### [id number] #### [facility] [address] [place] [address], [facility] Cholesterol in HDL [Mass/Vol] 33 mg/dL Normal 23-92 [facility] Comment on above: Result Comment: Slig ht variation in normal range could be due to gender and/or age. HDL CHOLESTEROL REFERENCE RANGE: 20 years and older Cardiovascular Risk > or =60 mg/dL Desirable 40 TO 59 mg/dL Low Risk <40 mg/dL High Risk Performed By: #### [id number] #### [facility] [address] [place] [address], [place] Cholesterol in LDL [Mass/Vol] 119 mg/dL Normal 0-130 [facility] Comment on above: Result Comment: LDL IS A CALCULATION LDL IS ONLY VALID IF THE TRIG IS LESS THAN 400. Performed By: #### [id number] #### [facility] [address] [place] [address], [place] Cholesterol.total/Ch olesterol in HDL [Mass ratio] 5.1 {ratio} High .0-4.5 [facility] Comment on above: Performed By: #### 4 [id number] #### [facility] [address] [place] [address], [place] NON-HDL CHOLESTEROL 135 mg/dL Normal [facility] Comment on above: Performed By: #### 4 [id number] #### [facility] [address] Triglyceride [Mass/Vol] 82 mg/dL Normal 40-149 [facility] Comment on above: Result Comment: TRIG LYCERIDE REFERENCE RANGE: 20 YEARS AND OLDER CARDIOVASCULAR RISK LESS THAN 150 mg/dl LOW RISK 150 TO 199 mg/dl BORDERLINE RISK 200 mg/dl AND GREATER HIGH RISK Performed By: #### [id number] #### [facility] [address] VLDL CHOL 16 mg/dL Normal 0-40 [facility] Comment on above: Performed By: #### [id number] #### [facility] [address] Vital Signs Date Time Vital Sign Value Performing Clinician Facility 04-20-2024 10:38-0500 Body height 177.8 cm [facility] 04-20-2024 10:38-0500 Body mass index (BMI) [Ratio] 48.3 kg/m2 [facility] 04-20-2024 10:38-0500 Body weight 152.86 kg [facility] 04-20-2024 10:38-0500 Diastolic blood pressure 64 mm[Hg] [facility] 04-20-2024 10:38-0500 Heart rate 65 /min [facility] 04-20-2024 10:38-0500 Systolic blood pressure 121 mm[Hg] [facility] 02-18-2024 08:51-0500 Body height 177.8 cm [facility] 02-18-2024 08:51-0500 Body mass index (BMI) [Ratio] 47.9 kg/m2 [facility] 02-18-2024 08:51-0500 Body weight 151.49 kg [facility] 02-18-2024 08:51-0500 Diastolic blood pressure 78 mm[Hg] [facility] 02-18-2024 08:51-0500 Heart rate 66 /min [facility] 02-18-2024 08:51-0500 Systolic blood pressure 144 mm[Hg] [facility] 10-18-2023 10:17-0400 Body height 177.8 cm [facility] 10-18-2023 10:17-0400 Body mass index (BMI) [Ratio] 48.6 kg/m2 [facility] 10-18-2023 10:170400 Body weight 153.76 kg [facility] 10-18-2023 10:17-0400 Diastolic blood pressure 69 mm[Hg] [facility] 10-18-2023 10:17-0400 Heart rate 56 /min [facility] 10-18-2023 10:17-0400 Systolic blood pressure 120 mm[Hg] [facility] 08-17-2023 09:25-0400 Body height 177.8 cm [facility] 08-17-2023 09:25-0400 Body mass index (BMI) [Ratio] 108.5 kg/m2 [facility] 08-17-2023 09:25-0400 Body mass index (BMI) [Ratio] 49.2 kg/m2 [facility] 08-17-2023 09:25-0400 Body weight 343 kg [facility] 08-17-2023 09:25-0400 Body weight 155.58 kg [facility] 08-17-2023 09:25-0400 Diastolic blood pressure 70 mm[Hg] [facility] 08-17-2023 09:25-0400 Systolic blood pressure 120 mm[Hg] [facility] 07-08-2023 10:18-0400 Body height 177.8 cm [facility] 07-08-2023 10:18-0400 Body mass index (BMI) [Ratio] 48.3 kg/m2 [facility] 07-08-2023 10:18-0400 Body weight 152.86 kg [facility] 07-08-2023 10:18-0400 Diastolic blood pressure 79 mm[Hg] [facility] 07-08-2023 10:18-0400 Heart rate 66 /min [facility] 07-08-2023 10:18-0400 Systolic blood pressure 148 mm[Hg] [facility] 12-31-2021 11:30-0400 Body height 182.88 cm Ayden Tanner II Other [employer] Other 12-31-2021 11:30-0400 Body mass index (BMI) [Ratio] 44.48 kg/m2 Ayden Tanner II Other [employer] Other 12-31-2021 11:30-0400 Body weight 148.78 kg Ayden Tanner II Other [employer] Other Encounters Encounter Date Encounter Type Care Provider Facility Start: 05-11-2024 End: 05-11-2024 ambulatory [facility] Start: 04-20-2024 End: 04-20-2024 ambulatory [facility] [place] [facility] Work Phone: Start: 04-20-2024 End: 04-20-2024 Patient encounter procedure [facility] Physician [facility] Work Phone: Start: 02-18-2024 End: 02-18-2024 Patient encounter procedure [facility] Physician [facility] Work Phone: Start: 02-15-2024 Non-patient / Non-visit [facility] Physician [facility] Work Phone: Start: 10-18-2023 End: 10-18-2023 ambulatory [facility] Work Phone: Start: 10-18-2023 End: 10-18-2023 Patient encounter procedure [facility] Physician [facility] Work Phone: Start: 08-17-2023 End: 08-17-2023 ambulatory [facility] Work Phone: Start: 08-17-2023 End: 08-17-2023 Patient encounter procedure [facility] Physician [facility] Work Phone: Start: 07-13-2023 Patient encounter procedure [facility] Start: 07-08-2023 End: 07-08-2023 ambulatory [facility] Work Phone: Start: 07-08-2023 End: 07-08-2023 Patient encounter procedure [facility] Work Phone: Start: 01-18-2023 End: 01-18-2023 ambulatory Desi Barth Other [employer] Other Start: 01-18-2023 Telephone encounter Desi Barth [facility] Start: 12-02-2022 End: 12-02-2022 ambulatory Desi Barth Other [employer] Other Start: 12-02-2022 Telephone encounter Desi Barth [facility] Start: 12-01-2022 End: 12-01-2022 ambulatory Desi Barth Other [employer] Other Start: 12-01-2022 Telephone encounter Desi Barth [facility] Start: 04-30-2022 End: 05-01-2022 ambulatory [facility] Facility:[facility] Start: 03-30-2022 ambulatory [facility] Facility :[facility] Start: 12-31-2021 Office outpatient ne w 45 minutes Ayden Tanner II [facility] Start: 12-31-2021 End: 12-31-2021 ambulatory MD Desi Barth Work Phone: [employer] Other Start: 12-31-2021 End: 12-31-2021 Patient encounter procedure MD Desi Barth Work Phone: [facility] [facility] Start: 11-27-2021 Adult health examination Desi Barth Other [employer] Other Start: 11-27-2021 End: 11-28-2021 ambulatory DESI BARTH Facility:[facility] Start: 11-23-2021 End: 11-24-2021 ambulatory DESI BARTH Facility:[facility] Start: 09-01-2021 End: 09-02-[address] LESLI JACKSON Facility:[facility] Start: 07-02-[address] LESLI JACKSON Fac ility:[facility] Start: 05-15-2021 End: 08-21-[address] LESLI JACKSON Facility:[facility] Start: 04-16-2021 End: 04-17-2021 ambulatory REFERRED SELF Facility:[facility] Procedures Date Procedure Procedure Detail Performing Clinician Start: 12-31-2021 Plain X-ray of left hip MD Desi Barth Work Phone: Screening for malign ant neoplasm of prostate Desi Barth Other Plan of Treatment Date Care Activity Detail Author Comprehensive metabo lic 2000 panel - Serum or Plasma [facility] enter Microalbumin [Mass/volume] in Urine [facility] XR Ankle - left GE 3 Views [facility] [place] [facility] Foot - left GE 3 Views Fi [facility] Payers Date Payer Category Payer Medicare [id number] 1960 Self-pay [id number] 1960 Unknown [id number] 1950 Unknown [id number] 1950 Unknown [id number] 1950 Unknown [id number] 1950 Unknown [id number] 1950 Unknown [id number] 1950 Unknown [id number] 1950 Unknown [id number] 1950 Unknown [id number] Medicare Medicare [id number] Unknown [id number] Unknown [employer] [facility] PFF S [id number] Social History Date Type Detail Facility Sex Assigned At [employer] Other Start: 1950 Sex Assigned At Male F [place] Start: 08-17-2023 End: 04-20-2024 Tobacco smoking status NHIS Never smoked tobacco (finding) [facility] Start: 04-20-2024 Sex Male (finding) [facility] Procedure Code Equipment Code Equipment Origin al Text Equipment Identifier Dates Capsule endoscopy, for patency of lumen evaluation Video capsule endoscopy system [id number] [facility] Start: 05-13-2020 Clinical Notes 03-15-2020 to 05-12-2024 Note Date & Type Note Facility 05-12-2024 Note [facility] nsult - New Consult 05/12/24 Referring Provider: [facility]: [facility] Celia Prasad is referred to clinic pharmacists for lipid management, specifically to start zetia or bempedoic acid. Note from provider states patient reports weight gain with statins and takes breaks from taking. Electronic order received from patient's cardiology provider. Will call patient to schedule. Kortney Camarena, GabrielleD [place] Cardiology [facility] 05-11-2024 Note Cardiovascular Medic ine [facility] SUBJECTIVE Chief Complaint Patient presents with Coronary Artery Disease Hypertension Hyperlipidemia Celia Prasad is a 73 y.o. male here for follow-up. HPI PMHx: CAD s/p PCI 04/2021, HTN, HLD, DM type II He denies any changes since last seen. He hasn't been exercising much since it is winter time. Denies c/o CP, dyspnea, orthopnea, PND, LE edema, dizziness/LH, palpitations, syncope. He takes lasix PRN for leg swelling, hasn't needed to take it much. He has been taking rosuvastatin periodically throughout the year. He states he has significant weight gain and trouble controlling his appetite when taking statins. This has slowly gotten better since he's been weaning himself onto his current statin. He has been on rosuvastatin for 2 months and he plans to stop for 6 weeks then resume again for 2 months. Patient Active Problem List Diagnosis Chest pain Delirium Disorder of sacrum Lumbosacral spondylosis without myelopathy Spinal stenosis of lumbar region Coronary artery disease involving [place] coronary artery of [place] heart without angina pectoris Dyslipidemia associated with type 2 diabetes mellitus (CMS/HCC) Hypertension associated with diabetes (CMS/HCC) Mixed hyperlipidemia Other fatigue Bilateral lower extremity edema Past Medical History: Diagnosis Date Coronary artery disease Diabetes mellitus (CMS/HCC) Hyperlipidemia Hypertension Sleep apnea Family History Problem Relation Name Age of Onset No Known Problems Mother No Known Problems Father Social History Tobacco Use Smoking status: Former Types: Cigarettes Smokeless tobacco: Never Substance Use Topics Alcohol use: Yes Comment: occasional No Known Allergies ROS HENT: Positive for hearing loss. Cardiovascular: Positive for leg swelling. All other systems reviewed and are negative. OBJECTIVE Visit Vitals BP 116/66 (BP Location: Left wrist, Patient Position: Sitting) Pulse 60 Ht 1.829 m (6') Wt (!) 153 kg (338 lb) SpO2 94% BMI 45.84 kg/m??? Smoking Status Former BSA 2.79 m??? Medications: Current Outpatient Medications: amLODIPine (Norvasc) 10 mg tablet, Take 1 tablet (10 mg) by mouth in the morning., Disp: 90 tablet, Rfl: 3 aspirin 81 mg EC tablet, aspirin 81 mg tablet,delayed release TAKE 1 TABLET BY MOUTH EVERY 24 HOURS, Disp: , Rfl: furosemide (Lasix) 40 mg tablet, TAKE 1 TABLET BY MOUTH ONCE DAILY NEEDED TAKE FOR 2 TO 3 DAYS THEN STOP (FOR LEG SWELLING OR WATER RETENTION), Disp: 30 tablet, Rfl: 3 glipiZIDE XL (Glucotrol XL) 10 mg 24 hr tablet, glipizide ER 10 mg tablet, extended release 24 hr TAKE 1 TABLET BY MOUTH ONCE DAILY, Disp: , Rfl: isosorbide mononitrate ER (Imdur) 60 mg 24 hr tablet, TAKE 1 TABLET BY MOUTH IN THE MORNING DO NOT CRUSH OR CHEW, Disp: 90 tablet, Rfl: 1 losartan-hydrochlorothiazide (Hyzaar) 100-25 mg tablet, Take 1 tablet by mouth once daily as directed., Disp: 90 tablet, Rfl: 3 metFORMIN (Glucophage) 1,000 mg tablet, metformin 1,000 mg tablet TAKE 1 TABLET BY MOUTH TWICE DAILY, Disp: , Rfl: metoprolol tartrate (Lopressor) 50 mg tablet, Take 1 tablet (50 mg) by mouth in the morning and at bedtime., Disp: 180 tablet, Rfl: 3 rosuvastatin (Crestor) 20 mg tablet, Take 1 tablet (20 mg) by mouth at bedtime., Disp: 90 tablet, Rfl: 3 Physical Exam Constitutional: Appearance: Normal appearance. He is obese. HENT: Head: Normocephalic and atraumatic. Right Ear: External ear normal. Left Ear: External ear normal. Eyes: Extraocular Movements: Extraocular movements intact. Pupils: Pupils are equal, round, and reactive to light. Neck: Vascular: No carotid bruit. Cardiovascular: Rate and Rhythm: Normal rate and regular rhythm. Pulses: Normal pulses. Heart sounds: Normal heart sounds. Pulmonary: Effort: Pulmonary effort is normal. Breath sounds: Normal breath sounds. Abdominal: General: Bowel sounds are normal. Palpations: Abdomen is soft. Musculoskeletal: General: Normal range of motion. Cervical back: Neck supple. Right lower leg: Edema present. Left lower leg: Edema present. Comments: Trace bilat edema Skin: General: Skin is warm and dry. Neurological: General: No focal deficit present. Mental Status: He is alert and oriented to person, place, and time. Psychiatric: Mood and Affect: Mood normal. Behavior: Behavior normal. Thought Content: Thought content normal. Judgment: Judgment normal. Labs: Legacy Encounter on 04/16/2021 Component Date Value Ref Range Status Ventricular Rate 04/16/2021 63 BPM Final Atrial Rate 04/16/2021 63 BPM Final GA Interval 04/16/2021 224 ms Final QRS DURATION 04/16/2021 108 ms Final QT Interval 04/16/2021 416 ms Final QTC CALCULATION(BAZETT) 04/16/2021 425 ms Final P [place] 04/16/2021 53 degrees Final R-[place] 04/16/2021 9 degrees Final T Wave [place] 04/16/2021 157 degrees Final Diagnosis 04/16/2021 F (more content not included)... [facility] 05-11-2024 Note Patient here for 1 y ear follow up CAD, hypertension, and hyperlipidemia. Isosorbide was increased to 60mg daily at last visit in Mar [address] Jackson. He had routine labs with lipid panel in June 2023, and more labs in Feb 2024. Denies chest pain, SOB, and palpitations. Only taking lasix PRN, which he states is not very often. Review of Systems HENT: Positive for hearing loss. Cardiovascular: Positive for leg swelling. All other systems reviewed and are negative. [facility] 02-18-2024 Evaluation note Diagnosis Onset Date Resolution Diabetic foot acute February 8:49am Type 2 diabetes mellitus with hyperglycemia acute February 18, 2024 8:49am Acute left ankle pain acute Apr 10:32am [facility] Work Phone: 1(635) 702-551210-19-2022 Evaluation note* Encounter Date Diagnosis Assessment Notes Treatment Notes Treatment Clinical Notes Dec, Left hip pain (ICD-10 - M25.552) Dec, Other I do long discu ssion with the patient regarding his x-ray findings. [...] the future to give me a call. [employer] Other 09-15-2022 NotePROCEDURE: XR HIP LT 2 [...] Electronically authenticated by: JANE HILL Date: 2021-11-27 10:53[facility]01-01-2021 History general Narrative - Reported* Type Description Date Medical History diabetes Medical History hypertension Surgical History Problem Title : cataracts remov ed, Problem Status : Active, Surgical History Problem Title : Malone noscopy, EGD - Dr. Michael - Mar [...] Active, Surgical History Problem Title : Vitrectomy 2018 , Problem Status : Active, [employer] Other Evaluation noteNo assessment information available [facility] Work Phone: Evaluation noteNo Information[facility] [email or web address] Other Evaluation note* Diagnosis Onset Date Resolution Status Essential (primary) hypertension acute Hypertension acute Screening PSA (prostate specific antigen) acute Type 2 diabetes mellitus with hyperglycemia acute [facility] Work Phone: Evaluation note* Diagnosis Onset Date Resolution Status Essential (primary) hypertension acute Hypertension acute Medicare annual wellness visit, subsequent acute Screening PSA (prostate specific antigen) acute Type 2 diabetes mellitus with hyperglycemia acute [facility] Work Phone: Evaluation note* Diagnosis Onset Date Resolution Status Foreign body acute [facility] Work Phone: History general Narrative - Reported* Type Description Date Medical History diabetes Medical History hypertension Surgical History hernia repair Surgical History vasectomy Surgical History pilonidal cyst [employer] Other Summary Purpose Family History No Family History Records Found Relationship Condition Age at Onset Recorded Date/T [place] father Malignant neoplasm of prostate Unknown Relationship Condition Age at Onset Recorded Date/T [place] father Malignant neoplasm of prostate Unknown father Unknown Not Specified Unknown Relationship Condition Age at Onset Recorded Date/T [place] father Malignant neoplasm of prostate Unknown father Unknown mother Unknown Advance Directives No Advanced Directives Records Found Advance Directive Response Recorded Date/ Time Advance Directives No April 04, 2020 1:37pm Advance Directive Response Recorded Date/ Time Advance Directives No April 20, 2024 10:31am Chief Complaint and Reason for Visit Chief [...] month f/u Reason for Visit Foreign body Chief Complaint Admit Date CC Adult Risk Stratification February 2:33pm 4 month f/u February 18, 2024 8 :49am ankle pain April 20, 2024 1 0:32am Reason for Visit Admit Date Diabetic foot February 18, 2024 8 :49am Type 2 diabetes mellitus with hyperglyce ciro February 18, 2024 8:49am Acute left ankle pain April 20, 2024 10:32am Additional Source Comments (unrecognized sect ion and content) No Status Records FoundNo Status Records FoundNo Status Records FoundNo Status Records Found INFORMATION SOURCE (unrecogn ized section and content) DATE CREATED AUTHOR 04/18/2021 [facility] DATE CREATED AUTHOR AUTHOR'S ORGANIZ ATION 01/07/2022 [facility] DATE CREATED AUTHOR AUTHOR'S ORGANIZ ATION 05/06/2022 [facility] DATE CREATED AUTHOR AUTHOR'S ORGANIZ ATION 05/13/2024 [facility] REASON FOR VISIT (unrecogniz ed section and content) CONSULT DESI BARTH LT HIP PAIN WX [facility] WILL BRING DISCRefillrefillrefill Care Teams (unrecognized sec tion and content) Team Status: Active Member Role Status Dates Desi Barth MD Primary Care Provider Active Team Status: Active Member Role Status Dates Desi Barth MD Primary Care Provide r, Attending Provider Active Start: February 15, 2024 Team Status: Inactive Member Role Status Dates Desi Barth MD Primary Care Provide r, Attending Provider Active Start: February 18, 2024 End: February 18, 2024 Team Status: Inactive Member Role Status Dates Desi Barth MD Primary Care Provide r, Attending Provider Active Start: April 20, 2024 End: April 20, 2024 Team Status: Inactive Member Role Status Dates Desi Barth MD Primary Care Provider Active Ayden Tanner II, MD Attending Provider Active Team Status: Inactive Member Role Status Dates Desi Barth MD Primary Care Provide r, Attending Provider Active Start: July 08, 2023 End: July 08, 2023 Team Status: Inactive Member Role Status Dates Desi Barth MD Primary Care Provider Active Start: August 17, 2023 End: August 17, 2023 Noemi Galindo APRN [employer] Attending Provider Act jay Start: August 17, 2023 End: August 17, 2023 Team Status: Inactive Member Role Status John Barth MD Primary Care Provide r, Attending [...] BE BASED ON THE PRIMARY CLINICAL RECORDS. [employer] provides no warranty or guarantee of the accuracy or completeness of information in this document.
--- NOTE | 2024-05-16 20:29 | ED.GENADUL1 ---
HPI HPI - General Adult General Chief complaint: Fever Stated complaint: Dehydration Time Seen by Provider: 05/16/24 20:03 Source: patient Mode of arrival: walk-in Limitations: no limitations History of Present Illness HPI narrative: This 73-year-old male with a history of diabetes presents stating he feels that he is dehydrated. He has been barely drinking throughout the day today. He states he will not drink the water in [place] and does not have any bottled water in his house. He states since yesterday he has been having urinary frequency and urgency and has only been voiding small amounts of dark-colored urine. He has fevers, chills. He states he has nasal congestion but it is not new for him. He denies any cough or chest pain. He denies any abdominal pain. He denies any flank pain. He denies any nausea vomiting or diarrhea. He states he is only urinated a small amount today because that is not working he does have chronic lower extremity swelling which he states is unchanged. He denies any pain in his legs. He denies any dysuria or hematuria. He denies any flank pain. No medications were taken prior to arrival and he presents with a fever of 101 Fahrenheit. Related Data Home Medications ?Medication ?Instructions ?Recorded ?Confirmed amlodipine 10 mg tablet 10 mg PO DAILY 05/16/24 05/16/24 aspirin 81 mg capsule 81 mg PO DAILY 05/16/24 05/16/24 furosemide 40 mg tablet 40 mg PO .COMPLEX PRN edema 05/16/24 05/16/24 glipizide 10 mg tablet, extended 10 mg PO DAILY 05/16/24 05/16/24 release 24 hr isosorbide mononitrate 60 mg 60 mg PO DAILY 05/16/24 05/16/24 tablet,extended release 24 hr losartan 100 1 tab PO DAILY 05/16/24 05/16/24 mg-hydrochlorothiazide 25 mg tablet metformin 1,000 mg tablet 1,000 mg PO BID 05/16/24 05/16/24 metoprolol tartrate 50 mg tablet 50 mg PO Q12H 05/16/24 05/16/24 rosuvastatin 20 mg tablet 20 mg PO DAILY 05/16/24 05/16/24 Allergies Allergy/AdvReac Type Severity Reaction Status Date / Time No Known Drug Allergies Allergy Verified 03/04/25 20:11 Opioid HPI Opioid Management Most Recent Opioid Data: Last ORT Total Score 0 05/16/24 23:21 05/16/24 Last ORT Risk Category Low Risk 05/16/24 23:21 05/16/24 Review of Systems ROS Status of ROS 10 or more systems reviewed and unremarkable except as noted in history and below PFSH PFSH Family History (Updated 05/16/24 @ 23:40 by Zully Zambrano) Father Family history of hypertension Family history of cancer Social History (Updated 05/16/24 @ 23:41 by Zully Zambrano) Within the past year, how often did you have a drink containing alcohol: never Score interpretation: A score less than 4 is consistent with normal alcohol consumption. Smoking status: Former smoker Non-prescribed substance use: denies use Previous occupational history: retired Highest level of school completed/degree received: high school graduate Are you now , , , , never or living with a partner: In a typical week, how many times do you talk on the telephone with family, friends, or neighbors: 3 or more times per week How often do you get together with friends or relatives: 3 or more times per week Little interest or pleasure in doing things: not at all Feeling down, depressed, or hopeless: not at all Feel stressed/tense/nervous/anxious/difficulty sleeping: not at all Do you think of yourself as: straight/heterosexual Gender Identity: male Exam Narrative Exam Narrative: Vital signs and Nursing Notes reviewed: Patient is febrile with a normal pulse, blood pressure is elevated 157/75, he is hypoxic with pulse ox of 93% on room air General: Awake, alert, oriented, obese elderly male, he appears weak but otherwise no distress HEENT: Normocephalic atraumatic, mucous membranes are pink and dry, posterior pharynx is normal with no swelling of the tongue, uvula pharyngeal soft tissues Neck: Supple, no meningeal signs Chest: Lungs are clear to auscultation with good air entry, there is no wheezing rhonchi or rales appreciated no accessory muscle use, patient is speaking in complete sentences-no chest wall tenderness to palpation CVS: Regular rate and rhythm S1-S2, no murmurs rubs or gallops, pulses are brisk and equal bilaterally ABD: Soft, nondistended, nontender, large rectus diastases noted no rebound guarding or rigidity, bowel sounds are normal, no pulsatile masses appreciated Extremities: Moving all extremities, no lower extremity tenderness, 2+ lower extremity swelling noted. There is no sign of any diabetic foot ulcer or skin breakdown on the patient's feet or lower legs Skin: Normal in appearance without rash,pallor, petechiae or purpura Neuro: No focal deficits Constitutional Vital Signs, click to edit/add: Last Vital Signs Temp 98.7 F 05/16/24 23:44 Pulse 72 05/16/24 23:44 Resp 20 05/16/24 23:44 BP 93/58 05/16/24 23:44 Pulse Ox 90 L 05/16/24 23:44 O2 Del Method Room Air 05/16/24 23:44 Course Vital Signs Vital signs: Vital Signs Blood Pressure 152/75 H 05/16/24 20:09 Pulse Oximetry 93 L 05/16/24 20:09 Temperature 98.7 F 05/16/24 23:44 Pulse Rate 72 05/16/24 23:44 Respiratory Rate 20 05/16/24 23:44 Blood Pressure 93/58 05/16/24 23:44 Pulse Oximetry 90 L 05/16/24 23:44 Oxygen Delivery Method Room Air 05/16/24 23:44 Medical Decision Making MDM Narrative Medical decision making narrative: This 73-year-old male with a history of diabetes presents for evaluation of the dehydration . He believes he is dehydrated because starting yesterday he was having urinary frequency and urgency. Today he developed a fever and generalized weakness. He denies any abdominal pain or flank pain. He has no nausea or vomiting. He states he has nasal congestion that is not new for him and a dry cough that is also not new for him. He denies any chest pain or shortness of breath. He has chronic lower extremity swelling with no sign of any diabetic foot ulcers. Upon arrival he was noted to be febrile with a normal pulse. Blood pressure was normal. He is borderline hypoxic but morbidly obese and likely has a history of obstructive sleep apnea. EKG is a sinus rhythm at 70 bpm with a first-degree AV block. An IV was placed and he was medicated with Tylenol orally IV fluids and a septic workup was ordered including CBC with differential, comprehensive metabolic profile, 2 sets of blood cultures, lactic acid, urinalysis, influenza, COVID-19 and chest x-ray. His white count is elevated at 19.4 with a stable hemoglobin of 13.1. Electrolytes are normal however glucose is elevated at 230. He has a normal CO2, I do not have any concerns of DKA. Lactic acid is elevated at 2.8. Liver function tests are normal. Urine is positive for blood and white blood cells consistent with a UTI. He is negative for COVID-19 and influenza. Two-view chest x-ray was reviewed by myself and does not show any acute infiltrate with a normal mediastinum and normal cardiac borders. On reevaluation he states he is feeling better. He is tolerating oral fluids. He stated to me when he came in that he does not drink the water in [place] however he has had several glasses of water at this time without difficulty. He was given IV Rocephin for the UTI. He is agreeable to being admitted. Case was discussed with the hospitalist and he is excepted for admission, observation status to Med/Surg Lab Data Lab results reviewed: Yes I reviewed the patient's lab results Labs: Lab Results 05/16/24 05/16/24 05/16/24 Range/Units 20:15 20:20 20:40 WBC 19.4 H (4.0-11.0) 10^3/uL RBC 4.58 L (4.70-6.10) 10^6/uL Hgb 13.1 L (14.0-18.0) g/dL Hct 38.8 L (42.0-54.0) % MCV 84.7 (80.0-94.0) fL MCH 28.6 (25.9-34.0) pg MCHC 33.8 (29.9-35.2) g/dL RDW 13.8 (11.0-15.0) % Plt Count 236 (150-450) 10^3/uL MPV 9.8 (9.5-13.5) fL Seg Neuts % (Manual) 89.0 H (43.0-75.0) Lymphocytes % (Manual) 3.0 L (20.5-60.0) % Monocytes % (Manual) 8.0 (1.7-12.0) % Eosinophils % (Manual) 0.0 L (0.9-7.0) % Basophils % (Manual) 0.0 L (0.2-2.0) % Neutrophils # (Manual) 17.26 H (1.4-6.5) 10^3/uL Lymphocytes # (Manual) 0.58 L (1.20-3.80) 10^3/uL Monocytes # (Manual) 1.55 H (0.30-0.80) 10^3/uL Eosinophils # (Manual) 0.00 (0.00-0.70) 10^3/uL Basophils # (Manual) 0.00 (0.00-0.10) 10^3/uL Toxic Granulation 1+ Sodium 134 L (136-145) mmol/L Potassium 4.1 (3.5-5.1) mmol/L Chloride 99 (98-107) mmol/L Carbon Dioxide 23.2 (21.0-32.0) mmol/L Anion Gap 15.9 BUN 10.0 (7.0-18.0) mg/dL Creatinine 1.00 (0.70-1.30) mg/dL Est GFR ( Amer) >60 (>=60 mL/min/1.73m^2) Est GFR (Non-Af Amer) >60 (>=60 mL/min/1.73m^2) BUN/Creatinine Ratio 10.0 Glucose 230 H (74-106) mg/dL Lactate 2.8 H* (0.4-2.0) mmol/L Calcium 8.8 (8.5-10.1) mg/dL Total Bilirubin 0.8 (0.2-1.0) mg/dL AST 24 (15-37) U/L ALT 23 (16-63) U/L Alkaline Phosphatase 90 (46-116) U/L Total Protein 7.2 (6.4-8.2) g/dL Albumin 3.2 L (3.4-5.0) g/dL Globulin 4.0 g/dL Albumin/Globulin Ratio 0.8 Urine Color Yellow (YELLOW) Urine Clarity Clear (CLEAR) Urine pH 6.0 (5.0-9.0) Ur Specific [place] 1.020 (1.005-1.025) Urine Protein 30 A (NEG/TRACE) mg/dL Urine Glucose (UA) 100 A (NEGATIVE) mg/dL Urine Ketones Negative (NEGATIVE) mg/dL Urine Occult Blood Moderate A (NEGATIVE) Urine Nitrite Negative (NEGATIVE) Urine Bilirubin Negative (NEGATIVE) Urine Urobilinogen 1.0 (0.2-1.0) EU/dL Ur Leukocyte Esterase Small A (NEGATIVE) Urine RBC 20-50 A (0-2) #/HPF Urine WBC 5-10 A (NONE SEEN) #/HPF Ur Squamous Epith Cells None seen (NONE/RARE) #/LPF Urine Crystals None seen (None Seen) #/HPF Urine Bacteria Trace A (NONE SEEN) #/HPF Urine Casts None seen (NONE SEEN) #/LPF Urine Mucus Trace A (NONE SEEN) Ur Culture Indicated? Yes-[facility] [place] Influenza Type A Ag Negative Influenza Type B Ag Negative SARS-CoV-2 Ag (CV2AG) Negative (NEGATIVE) ECG Data Attestation: I personally reviewed and interpreted this ECG as follows: (Sinus rhythm at 70 bpm, first-degree AV block, nonspecific ST changes, normal axis, no acute ST segment elevation or T wave inversion) Discharge Plan Discharge Chief Complaint: Fever Clinical Impression: Fever, Acute UTI Patient Disposition: Admitted as Observation Time of Disposition Decision: 23:00 Condition: Good Discharge Date/Time: 05/16/24 23:08
[2024-05-16 20:36] LABS: Hematocrit 38.8 % (42.0-54.0); Hemoglobin 13.1 g/dL (14.0-18.0); Mean Corpuscular HGB Conc 33.8 g/dL (29.9-35.2); Mean Corpuscular Hemoglobin 28.6 pg (25.9-34.0); Mean Corpuscular Volume 84.7 fL (80.0-94.0); Mean Platelet Volume 9.8 fL (9.5-13.5); Platelet Count 236 10^3/uL (150-450); Red Blood Count 4.58 10^6/uL (4.70-6.10); Red Cell Distribution Width 13.8 % (11.0-15.0); White Blood Count 19.4 10^3/uL (4.0-11.0)
[2024-05-16] MEDS: ACETAMINOPHEN 325 MG TABLET 650 MG PO (20:49)
[2024-05-16] MEDS: 0.9 % SODIUM CHLORIDE 1,000 ML 1000 ML IV (20:49)
[2024-05-16 20:51] LABS: Lymphocytes Absolute Manual 0.58 10^3/uL (1.20-3.80); Monocytes Absolute Manual 1.55 10^3/uL (0.30-0.80); Segmented Neut Absolute Manual 17.26 10^3/uL (1.4-6.5); Toxic Granulation 1+
[2024-05-16 20:57] LABS: Bilirubin Urine NEGATIVE (NEGATIVE); Blood Urine MODERATE (NEGATIVE); Clarity Urine CLEAR (CLEAR); Color Urine YELLOW (YELLOW); Glucose Urine UA 100 mg/dL (NEGATIVE); Ketones Urine NEGATIVE (NEGATIVE); Leukocyte Esterase Urine SMALL (NEGATIVE); Nitrite Urine NEGATIVE (NEGATIVE); Protein Urine 30 mg/dL (NEG/TRACE)
[2024-05-16 21:01] LABS: Alanine Aminotransferase 23 U/L (16-63); Albumin Globulin Ratio 0.8; Albumin Level 3.2 g/dL (3.4-5.0); Alkaline Phosphatase 90 U/L (46-116); Anion Gap 15.9; Aspartate Amino Transferase 24 U/L (15-37); Bilirubin Total 0.8 mg/dL (0.2-1.0); Calcium 8.8 mg/dL (8.5-10.1); Carbon Dioxide 23.2 mmol/L (21.0-32.0); Chloride 99 mmol/L (98-107); Estimated GFR (African America >60 (>=60 mL/min/1.73m^2); Estimated GFR (Non-African Ame >60 (>=60 mL/min/1.73m^2); Glucose 230 mg/dL (74-106); Potassium 4.1 mmol/L (3.5-5.1); Sodium 134 mmol/L (136-145); Total Protein 7.2 g/dL (6.4-8.2)
[2024-05-16 21:04] LABS: Influenza Virus A Antigen Negative; Influenza Virus B Antigen Negative; Internal Control Within Normal Limits
[2024-05-16 21:05] LABS: Internal Control Within Normal Limits; SARS-CoV-2 Ag NEGATIVE (NEGATIVE)
[2024-05-16 21:06] LABS: Bacteria Urine TRACE #/HPF (NONE SEEN); Cast Seen? NONE SEEN #/LPF (NONE SEEN); Crystals Seen? None Seen #/HPF (None Seen); Mucus Urine TRACE (NONE SEEN); RBC Urine 20-50 #/HPF (0-2); Squamous Epithelial Cell Urine NONE SEEN #/LPF (NONE/RARE)
[2024-05-16 21:07] LABS: Urine Culture Indicated YES-FRMC
[2024-05-16 21:12] LABS: Lactate/Lactic Acid 2.8 mmol/L (0.4-2.0)
[2024-05-16] MEDS: CEFTRIAXONE 1,000 MG in 0.9 % SODIUM CHLORIDE 50 ML 100 MG IV (21:27)
--- NOTE | 2024-05-16 21:48 | ECG_ITS ---
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 Measurements Intervals [place] Rate: 71 P: 30 [place]: 226 QRS: 35 QRSD: 110 T: 150 QT: 392 QTc: 414 Interpretive Statements 1100 Sinus rhythm 2231 First degree AV block [address] depression 4564 Twave abnormality, possible lateral ischemia 9150 abnormal ECG Compared to ECG 04/03/2021 13:49:29 First degree AV block now present ST (T wave) deviation still present Possible ischemia still present Electronically Signed On 05-17-2024 9:08:57 EST by ANYI PAGAN M.D.
--- OUTSIDE RECORDS SUMMARY | 2024-05-16 23:17 | XMS_ITS | CCD ---
Author Organization [facility] Care Team Providers Care Communications Administrator Name Role Phone SELF, REFERRED Referring Unavailable [...] (3 sources) atorvastatin Drug Allergy Comment:Myalgi as [employer] Other (3 sources) Allergies Reconciled Propensity to adverse reactions Unknown [employer] Other Medications Current Medications Medication Drug Class(es) Dates Sig (Normalized) Sig (Original) Acetaminophen / oxyCODONE (3 sources) Opioid Agonist Start: 11-27-2021 take 1 tablet by mouth three times daily as needed Endocet 10-325mg Endocet 10-325mg, 1 (one) tablet three times daily, as needed # 20, 11/27/2021, No Refill. Active oral three times daily, as needed for 7 *Pick strength-form from [employer] for eRX* Nov, Active amLODIPine 10 mg [...] Oral daily for 0 *Pick strength-form from [employer] for eRX* Nov, Active take 1 tablet [...] Oral daily for 30 *Pick strength-form from [employer] for eRX* May, Active glipiZIDE er 10 [...] oral daily for 0 *Pick strength-form from [employer] for eRX* Jan, Active take 1 tablet [...] Oral daily for 90 *Pick strength-form from [employer] for eRX* Mar, Active meloxicam 7.5 mg [...] disease (5 sources) Atherosclerotic heart disease of [place] coronary artery without angina pectoris; Translations: [ASHD EKWOK CA W/O ANGINA PECTORIS] Onset: 09-01-2021 Chronic [...] Onset: 05-15-2021 Episodic Other aftercare (1 source) 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; Translations: [RETIREMENT CURRENT USE OF ASPIRIN] Onset: 11-26-2021 Episodic Other aftercare (1 source) retirement (current) use of oral hypoglycemic drugs; Translations: [RETIREMENT USE ORAL HYPOGLYCEMIC DX] Onset: 11-26-2021 Episodic Other aftercare (1 source) 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; Translations: [OTH RETIREMENT CURRENT DRUG THERAPY] Onset: 11-26-2021 Episodic Other [...] Interpretation Reference Range Facility Documentationon 05-12-2024 Documentation [id number] Prasad,Celia 1950 M Date Provider Department Center 05/12/2024 [id number], KARA HVCANTICOAG [facility] Family History Problem Relation Age of Onset No Known Problems Mother No Known Problems Father Family Status - Relation Status Age at Mother Father Reason for Visit and Comments: PharmD Cardiology Consult [Other] Normal [facility] Office Visiton 05-11-2024 Follow-up visit [id number] Celia Prasad 1950 M Date Provider Department Center 05/11/2024 ITZ DAVIDSON CARD [facility] Family History Problem Relation Age of Onset No Known Problems Mother No Known Problems Father Family Status - Relation Status Age at Mother Father Level of Service:96929 ME OFFICE/OUTPATIENT ESTABLISHED LOW MDM 20 MIN Reason for Visit and Comments: Coronary Artery Disease [187] Hypertension [678947] Hyperlipidemia [182] Normal [facility] Basophils Auto (Bld) [#/Vol] on 02-18-2024 Basophils (Bld) [#/Vol] Automated basophil count 0.0-0.1 [facility] Basophils/100 WBC Auto (Bld) on 02-18-2024 Basophils/100 WBC (Bld) Automated basophil % 0.2-2.0 [facility] Eosinophils/100 WBC Auto (Bl d)on 02-18-2024 Eosinophils/100 WBC (Bld) Automated eosinophil % 0.9-7.0 [facility] Erythrocyte distribution wid th Auto (RBC) [Ratio]on 02-18-2024 Erythrocyte distribution width (RBC) [Ratio] Erythrocyte distribution width [Ratio] by Automated count 11.0-15.0 [facility] Estimated glomerular filtrat ion rate (GFR) non- Americanon 02-18-2024 GFR/1.73 sq M.predicted among non-blacks MDRD (S/P/Bld) [Vol rate/Area] Estimated glomerular filtration rate (GFR) non- >=60 mL/min/1.73m 2 [facility] Glucose mean value [Mass/vol ume] in Blood Estimated from glycated hemoglobinon 02-18-2024 Average glucose Estimated from glycated hemoglobin (Bld) [Mass/Vol] Glucose mean value [Mass/volume] in Blood Estimated from glycated hemoglobin [facility] Hematocrit Auto (Bld) [Volum e fraction]on 02-18-2024 Hematocrit (Bld) [Volume fraction] Hematocrit [Volume Fraction] of Blood by Automated count 42.0-54.0 [facility] Hemoglobin [Mass/volume] in Bloodon 02-18-2024 Hemoglobin (Bld) [Mass/Vol] Hemoglobin [Mass/volume] in Blood Low 14.0-18.0 [facility] Laboratory - Chemistry and C hemistry - challengeon 02-18-2024 Calcium [Mass/Vol] 9.2 mg/dL 8.5-10.1 [facility] Chloride [Moles/Vol] 103 mmol/L 98-107 [facility] CO2 [Moles/Vol] 30.4 mmol/L 21.0-32.0 [facility] Creatinine [Mass/Vol] 0.96 mg/dL 0.70-1.30 [facility] GFR/1.73 sq M.predicted MDRD (S/P/Bld) [Vol rate/Area] mL/min/{1.73_m2} >=60 mL/min/1.73m 2 [facility] Glucose [Mass/Vol] 141 mg/dL High 74-106 [facility] Potassium [Moles/Vol] 4.6 mmol/L 3.5-5.1 [facility] Sodium [Moles/Vol] 141 mmol/L 136-145 [facility] Urea nitrogen [Mass/Vol] 17.0 mg/dL 7.0-18.0 [facility] Urea nitrogen/Creatinine [Mass ratio] 17.7 mg/mg [facility] Laboratory - Hematology and Cell countson 02-18-2024 HbA1c (Bld) [Mass fraction] 7.4 % High 4.5-6.2 [facility] Comment on above: ADA RECOMMENDED LIMI T 4.0 - 6.0ADA THERAPEUTIC TARGET < 7.0ACTION SUGGESTED> 7.0 Immature granulocytes/100 WBC (Bld) 0.2 % 0.0-0.5 [facility] Leukocytes [#/volume] correc aarti for nucleated erythrocytes in Blood by Automated counon 02-18-2024 WBC corrected for nucl RBC Auto (Bld) [#/Vol] Leukocytes [#/volume] corrected for nucleated erythrocytes in Blood by Automated coun 4.0-11.0 [facility] Lymphocytes Auto (Bld) [#/Vo l]on 02-18-2024 Lymphocytes (Bld) [#/Vol] Lymphocytes [#/volume] in Blood by Automated count 1.2-3.8 [facility] Lymphocytes/100 WBC Auto (Bl d)on 02-18-2024 Lymphocytes/100 WBC (Bld) Lymphocytes/100 leukocytes in Blood by Automated count 20.5-60.0 [facility] MCH Auto (RBC) [Entitic mass ]on 02-18-2024 MCH (RBC) [Entitic mass] MCH [Entitic mass] by Automated count 25.9-34.0 [facility] MCHC Auto (RBC) [Mass/Vol]on 02-18-2024 MCHC (RBC) [Mass/Vol] MCHC [Mass/volume] by Automated count 29.9-35.2 [facility] MCV Auto (RBC) [Entitic vol] on 02-18-2024 MCV (RBC) [Entitic vol] MCV [Entitic volume] by Automated count 80.0-94.0 [facility] Monocytes Auto (Bld) [#/Vol] on 02-18-2024 Monocytes (Bld) [#/Vol] Automated blood monocyte count 0.3-0.8 [facility] Monocytes/100 WBC Auto (Bld) on 02-18-2024 Monocytes/100 WBC (Bld) Automated monocyte % 1.7-12.0 [facility] Neutrophils Auto (Bld) [#/Vo l]on 02-18-2024 Neutrophils (Bld) [#/Vol] Neutrophils [#/volume] in Blood by Automated count 1.4-6.5 [facility] Neutrophils/100 WBC Auto (Bl d)on 02-18-2024 Neutrophils/100 WBC (Bld) Automated neutrophil % 43.0-75.0 [facility] No Panel Informationon 02-17 Eosinophils # (Auto) 0.2 10 3/uL 0.0-0.7 [facility] Immature Granulocyte # (Auto) 0.02 10 3/uL 0.00-0.03 [facility] Platelet mean volume Auto (B ld) [Entitic vol]on 02-18-2024 Platelet mean volume (Bld) [Entitic vol] Platelet mean volume [Entitic volume] in Blood by Automated count Low 9.5-13.5 [facility] Platelets Auto (Bld) [#/Vol] on 02-18-2024 Platelets (Bld) [#/Vol] Platelets [#/volume] in Blood by Automated count 150-450 [facility] RBC Auto (Bld) [#/Vol]on RBC (Bld) [#/Vol] Erythrocytes [#/volume] in Blood by Automated count 4.70-6.10 [facility] Serum or plasma anion gap de terminationon 02-18-2024 Anion gap [Moles/Vol] Serum or plasma anion gap determination [facility] Cholesterol in LDL Calc [Mas s/Vol]on 07-08-2023 Cholesterol in LDL [Mass/Vol] 138.0 mg/dL [facility] Comment on above: <100 mg/dl [id number] 0-129 mg/dl NEAR OR ABOVE [id number] mg/dl BORDERLINE [id number] mg/dl HIGH>190 mg/dl VERY HIGH Cholesterol in VLDL Calc [Ma ss/Vol]on 07-08-2023 Cholesterol in VLDL [Mass/Vol] 42.0 mg/dL [facility] Estimated glomerular filtrat ion rate (GFR) non- Americanon 07-08-2023 GFR/1.73 sq M.predicted among non-blacks MDRD (S/P/Bld) [Vol rate/Area] mL/min/{1.73_m2} >=60 [facility] Globulin Calc (S) [Mass/Vol] on 07-08-2023 Globulin (S) [Mass/Vol] 4.1 g/dL [facility] Glucose mean value [Mass/vol ume] in Blood Estimated from glycated hemoglobinon 07-08-2023 Average glucose Estimated from glycated hemoglobin (Bld) [Mass/Vol] 197 mg/dL [facility] Laboratory - Chemistry and C hemistry - challengeon 07-08-2023 Albumin [Mass/Vol] 3.5 g/dL 3.4-5.0 [facility] ALP [Catalytic activity/Vol] 90 U/L 46-116 [facility] ALT [Catalytic activity/Vol] 39 U/L 16-63 [facility] AST [Catalytic activity/Vol] 36 U/L 15-37 [facility] Bilirubin [Mass/Vol] 0.4 mg/dL 0.2-1.0 [facility] Calcium [Mass/Vol] 9.4 mg/dL 8.5-10.1 [facility] Chloride [Moles/Vol] 101 mmol/L 98-107 [facility] Cholesterol [Mass/Vol] 219 mg/dL <=200 [facility] Cholesterol in HDL [Mass/Vol] 39 mg/dL 40-60 [facility] Comment on above: > or =60 mg/dl - LOW CARDIOVASCULAR RISK<40 mg/dl - HIGH CARDIOVASCULAR RISK CO2 [Moles/Vol] 30.3 mmol/L 21.0-32.0 [facility] Creatinine [Mass/Vol] 0.83 mg/dL 0.70-1.30 [facility] GFR/1.73 sq M.predicted MDRD (S/P/Bld) [Vol rate/Area] mL/min/{1.73_m2} >=60 [facility] Glucose [Mass/Vol] 137 mg/dL 74-106 [facility] Potassium [Moles/Vol] 4.3 mmol/L 3.5-5.1 [facility] Protein [Mass/Vol] 7.6 g/dL 6.4-8.2 [facility] Sodium [Moles/Vol] 140 mmol/L 136-145 [facility] Triglyceride [Mass/Vol] 210 mg/dL <=150 [facility] TSH Qn 3.188 m[IU]/L 0.358-3.740 [facility] Urea nitrogen [Mass/Vol] 12.0 mg/dL 7.0-18.0 [facility] Urea nitrogen/Creatinine [Mass ratio] 14.5 mg/mg [facility] Laboratory - Hematology and Cell countson 07-08-2023 HbA1c (Bld) [Mass fraction] 8.5 % 4.5-6.2 [facility] Comment on above: ADA RECOMMENDED LIMI T 4.0 - 6.0ADA THERAPEUTIC TARGET < 7.0ACTION SUGGESTED> 7.0 Microalbumin [Mass/volume] i n Urineon 07-08-2023 Albumin DL <= 20 mg/L (U) [Mass/Vol] 2.4 mg/dL <=30.0 [facility] No Panel Informationon 07-07 Prostate Specific Antigen Screen 0.61 ng/mL <=4.00 [facility] Serum or plasma albumin/glob ulin mass ratioon 07-08-2023 Albumin/Globulin [Mass ratio] 0.9 {ratio} [facility] Serum or plasma anion gap de terminationon 07-08-2023 Anion gap [Moles/Vol] 13.0 mmol/L [facility] Serum or plasma total choles terol/high density lipoprotein (HDL) cholesterol mass ponce 07-08-2023 Cholesterol.total/Ch olesterol in HDL [Mass ratio] 5.6 {ratio} [facility] Comment on above: 3.3 - 4.4 LOW RISK4. 4 - 7.1 AVERAGE RISK7.1 - 11.0 MODERATE RISK>11.0 HIGH RISK LIPID PROFILEon 04-30-2022 CHOL-HDL RATIO NORM SEE BELOW Normal [facility] Comment on above: Result Comment: 3.3 - 4.4 LOW RISK 4.4 - 7.1 AVERAGE RISK 7.1 - 11.0 MODERATE RISK >11.0 HIGH RISK Performed By: #### L IPID, CMP #### [facility] [address] [place] [address] Dr. Alberta Stern Cholesterol [Mass/Vol] 105 mg/dL Normal <=200 [facility] Comment on above: Performed By: #### L IPID, CMP #### [facility] [address] [place] [address] Dr. Alberta Stern Cholesterol in HDL [Mass/Vol] 38 mg/dL Critically low 40-60 [facility] Comment on above: Performed By: #### L IPID, CMP #### [facility] [address] [place] [address] Dr. Alberta Stern Cholesterol in LDL [Mass/Vol] 46.6 mg/dL Normal [facility] Comment on above: Performed By: #### L IPID, CMP #### [facility] [address] [place] [address] Dr. Alberta Stern Cholesterol.total/Ch olesterol in HDL [Mass ratio] 2.8 {ratio} Normal [facility] Comment on above: Performed By: #### L IPID, CMP #### [facility] [address] [place] [address] Dr. Alberta Stern HDL NORMAL > or = 60 mg/dl - LOW CARDIOVASCULAR RISK <40 mg/dl - HIGH CARDIOVASCULAR RISK Normal [facility] Comment on above: Performed By: #### L IPID, CMP #### [facility] [address] [place] [address] Dr. Alberta Stern LDL CALC NORMAL SEE BELOW Normal [facility] Comment on above: Result Comment: <100 mg/dl OPTIMAL 100 - 129 mg/dl NEAR OR ABOVE OPTIMAL 130 - 159 mg/dl BORDERLINE HIGH 160 - 189 mg/dl HIGH >190 mg/dl VERY HIGH Performed By: #### L IPID, CMP #### [facility] [address] [place] [address] Dr. Alberta Stern Triglyceride [Mass/Vol] 102 mg/dL Normal <=150 [facility] Comment on above: Performed By: #### L IPID, CMP #### [facility] [address] [address] [address] Alberta Stern VLDL CALC 20.4 mg/dL Normal [facility] Comment on above: Performed By: #### L IPID, CMP #### [facility] [address] [address] [address] Alberta Stern PROF 14(COMP METB)on 023 Albumin [Mass/Vol] 3.5 g/dL Normal 3.4-5.0 [facility] Comment on above: Performed By: #### L IPID, CMP #### [facility] [address] [address] [address] Alberta Stern Albumin/Globulin [Mass ratio] 1.0 {ratio} Normal [facility] Comment on above: Performed By: #### L IPID, CMP #### [facility] [address] [place] [address] Dr. Alberta Stern ALP [Catalytic activity/Vol] 95 U/L Normal 46-116 [facility] Comment on above: Performed By: #### L IPID, CMP #### [facility] [address] [address] [address] Alberta Stern ALT [Catalytic activity/Vol] 23 U/L Normal 16-63 [facility] Comment on above: Performed By: #### L IPID, CMP #### [facility] [address] [address] [address] Alberta Stern Anion gap [Moles/Vol] 12.2 mmol/L Normal [facility] Comment on above: Performed By: #### L IPID, CMP #### [facility] [address] [address] [address] Alberta Stern AST [Catalytic activity/Vol] 19 U/L Normal 15-37 [facility] Comment on above: Performed By: #### L IPID, CMP #### [facility] [address] [address] [address] Alberta Stern Bilirubin [Mass/Vol] 0.4 mg/dL Normal 0.2-1.0 [facility] Comment on above: Performed By: #### L IPID, CMP #### [facility] [address] [address] [address] Alberta Stern Calcium [Mass/Vol] 8.9 mg/dL Normal 8.5-10.1 [facility] Comment on above: Performed By: #### L IPID, CMP #### [facility] [address] [address] [address] Alberta Stern Chloride [Moles/Vol] 103 mmol/L Normal 98-107 [facility] Comment on above: Performed By: #### L IPID, CMP #### [facility] [address] [address] [address] Alberta Stern CO2 [Moles/Vol] 29.2 mmol/L Normal 21.0-32.0 [facility] Comment on above: Performed By: #### L IPID, CMP #### [facility] [address] [place] [address] Dr. Alberta Stern Creatinine [Mass/Vol] 0.74 mg/dL Normal 0.70-1.30 [facility] Comment on above: Performed By: #### L IPID, CMP #### [facility] [address] [place] [address] Dr. Alberta Stern EGFR-AF BRAZILIAN >60 Normal >=60 [facility] Comment on above: Performed By: #### L IPID, CMP #### [facility] [address] [place] [address] Dr. Alberta Stern EGFR-NON AF BRAZILIAN >60 Normal >=60 [facility] Comment on above: Performed By: #### L IPID, CMP #### [facility] [address] [place] [address] Dr. Alberta Stern Globulin (S) [Mass/Vol] 3.6 g/dL Normal [facility] Comment on above: Performed By: #### L IPID, CMP #### [facility] [address] [place] [address] Dr. Alberta Stern Glucose [Mass/Vol] 143 mg/dL Critically high 74-106 [facility] Comment on above: Performed By: #### L IPID, CMP #### [facility] [address] [address] [address] Alberta Stern Potassium [Moles/Vol] 4.4 mmol/L Normal 3.5-5.1 [facility] Comment on above: Performed By: #### L IPID, CMP #### [facility] [address] [address] [address] Alberta Stern Protein [Mass/Vol] 7.1 g/dL Normal 6.4-8.2 [facility] Comment on above: Performed By: #### L IPID, CMP #### [facility] [address] [address] [address] Alberta Stern Sodium [Moles/Vol] 140 mmol/L Normal 136-145 [facility] Comment on above: Performed By: #### L IPID, CMP #### [facility] [address] [address] [address] Alberta Stern Urea nitrogen [Mass/Vol] 15.0 mg/dL Normal 7.0-18.0 [facility] Comment on above: Performed By: #### L IPID, CMP #### [facility] [address] [address] [address] Alebrta Stern Urea nitrogen/Creatinine [Mass ratio] 20.3 mg/mg Normal [facility] Comment on above: Performed By: #### L IPID, CMP #### [facility] [address] [address] [address] Alberta Stern XR hip LT min 2V(w/wo pelvis )*on 12-31-2021 XR hip LT min 2V(w/wo pelvis)* [facility] [place] [address] XRay Report Signed Patient: Celia Prasad MR#: [id number] [id number] : 1950 Acct:[id number] Age/Sex: 71 / M ADM Date: 12/31/21 [place] [facility] [place]: Type: [facility] CLI Attending Dr: Ayden Tanner II, MD [...] Ortega Jr., D.O.12/31/2021 2:45 PM Dictation Location: [place] [address] Transcribed By: [facility] 12/31/21 1445 Dictated By: Rivas Ortega Jr, DO 12/31/21 1443 Signed By: 12/31/21 [address] [facility] [address] ABD/PELVIS WO CONon 11-24 CT ABD/PELVIS [...] BAILEY GLASS Date: 2021-11-23 22:10 Normal [facility] ER URINE PROFILEon 2 Bilirubin Ql (U) Negative Normal NEGATIVE [facility] Comment on above: Performed By: #### U MICRO, ERUR #### [facility] [address] [address] [address] Alberta Stern Clarity (U) CLEAR Normal CLEAR [facility] Comment on above: Performed By: #### U MICRO, ERUR #### [facility] [address] [address] [address] Alberta Stern Color (U) YELLOW Normal YELLOW [facility] Comment on above: Performed By: #### U MICRO, ERUR #### [facility] [address] [address] [address] Alberta HILLD A micrscopic examination will be performed if indicated. Normal [facility] Comment on above: Performed By: #### U MICRO, ERUR #### [facility] [address] [address] [address] Alberta Stern Glucose Ql (U) Negative Normal NEGATIVE [facility] Comment on above: Performed By: #### U MICRO, ERUR #### [facility] [address] [address] [address] Alberta Stern Hemoglobin Ql (U) SMALL Abnormal NEGATIVE [facility] Comment on above: Performed By: #### U MICRO, ERUR #### [facility] [address] [address] [address] Alberta Stern Ketones Ql (U) TRACE Abnormal NEGATIVE [facility] Comment on above: Performed By: #### U MICRO, ERUR #### [facility] [address] [address] [address] Alberta Stern LEUKOCYTES Negative Normal NEGATIVE [facility] Comment on above: Performed By: #### U MICRO, ERUR #### [facility] [address] [address] [address] Alberta tSern Nitrite Ql (U) Negative Normal NEGATIVE [facility] Comment on above: Performed By: #### U MICRO, ERUR #### [facility] [address] [place] [address] Dr. Alberta Stern pH (U) 6.0 [pH] Normal 5-9 [facility] Comment on above: Performed By: #### U MICRO, ERUR #### [facility] [address] [place] [address] Dr. Alberta Stern SPEC GRAVITY 1.025 Normal 1.005-<=1.025 [facility] Comment on above: Performed By: #### U MICRO, ERUR #### [facility] [address] [place] [address] Dr. Alberta Stern UA PROTEIN Negative Normal NEGATIVE/ TRACE [facility] Comment on above: Performed By: #### U MICRO, ERUR #### [facility] [address] [place] [address] Dr. Alberta Stern UR MICRO IND INDICATED Normal [facility] Comment on above: Performed By: #### U MICRO, ERUR #### [facility] [address] [place] [address] Dr. Alberta Stern Urobilinogen Qn (U) 1.0 {Makenna'U}/dL Normal 0.2 - 1. 0 [facility] Comment on above: Performed By: #### U MICRO, ERUR #### [facility] [address] [place] [address] Dr. Alberta Stern URINE MICROSCOPIC ONLYon BACTERIA NONE SEEN Normal NONE SEEN [facility] Comment on above: Performed By: #### U MICRO, ERUR #### [facility] [address] [place] [address] Dr. Alberta Stern Bacteria identified Cx Nom (U) NOT INDICATED Normal [facility] Comment on above: Performed By: #### U MICRO, ERUR #### [facility] [address] [place] [address] Dr. Alberta Stern CAST NONE SEEN Normal NONE SEEN [facility] Comment on above: Performed By: #### U MICRO, ERUR #### [facility] [address] [place] [address] Dr. Alberta Stern Crystals LM Nom (Urine sed) NONE SEEN Normal NONE SEEN [facility] Comment on above: Performed By: #### U MICRO, ERUR #### [facility] [address] [place] [address] Dr. Alberta Stern Epithelial cells LM Ql (Urine sed) RARE Normal NONE SEEN /RARE [facility] Comment on above: Performed By: #### U MICRO, ERUR #### [facility] [address] [address] [address] Alberta Stern MUCOUS NONE SEEN Normal NONE SEEN [facility] Comment on above: Performed By: #### U MICRO, ERUR #### [facility] [address] [place] [address] Dr. Alberta Stern RBC 20-50 Abnormal 0-2 [facility] Comment on above: Performed By: #### U MICRO, ERUR #### [facility] [address] [place] [address] Dr. Alberta Stern WBC NONE SEEN Normal NONE SEEN [facility] Comment on above: Performed By: #### U MICRO, ERUR #### [facility] [address] [place] [address] Dr. Alberta Stern XR LSPINE 2_3 VIEWSon [...] ALEKSANDRA MAR Date: 2021-11-23 20:12 Normal [facility] LIPID PROFILEon 09-01-2021 CHOL-HDL RATIO NORM SEE BELOW Normal [facility] Comment on above: Result Comment: 3.3 - 4.4 LOW RISK 4.4 - 7.1 AVERAGE RISK 7.1 - 11.0 MODERATE RISK >11.0 HIGH RISK Performed By: #### L IPID #### [facility] [address] [address] [address] Alberta Stern Cholesterol [Mass/Vol] 92 mg/dL Normal <=200 [facility] Comment on above: Performed By: #### L IPID #### [facility] [address] [place] [address] Dr. Alberta Stern Cholesterol in HDL [Mass/Vol] 37 mg/dL Critically low 40-60 [facility] Comment on above: Performed By: #### L IPID #### [facility] [address] [place] [address] Dr. Alberta Stern Cholesterol in LDL [Mass/Vol] 33.0 mg/dL Normal [facility] Comment on above: Performed By: #### L IPID #### [facility] [address] [place] [address] Dr. Alberta Stern Cholesterol.total/Ch olesterol in HDL [Mass ratio] 2.5 {ratio} Normal [facility] Comment on above: Performed By: #### L IPID #### [facility] [address] [place] [address] Dr. Alberta Stern HDL NORMAL > or = 60 mg/dl - LOW CARDIOVASCULAR RISK <40 mg/dl - HIGH CARDIOVASCULAR RISK Normal [facility] Comment on above: Performed By: #### L IPID #### [facility] [address] [place] [address] Dr. Alberta Stern LDL CALC NORMAL SEE BELOW Normal [facility] Comment on above: Result Comment: <100 mg/dl OPTIMAL 100 - 129 mg/dl NEAR OR ABOVE OPTIMAL 130 - 159 mg/dl BORDERLINE HIGH 160 - 189 mg/dl HIGH >190 mg/dl VERY HIGH Performed By: #### L IPID #### [facility] [address] [place] [address] Dr. Alberta Stern Triglyceride [Mass/Vol] 110 mg/dL Normal <=150 [facility] Comment on above: Performed By: #### L IPID #### [facility] [address], [place] [address] Dr. Alberta Stern VLDL CALC 22.0 mg/dL Normal [facility] Comment on above: Performed By: #### L IPID #### [facility] [address] [place], [place] [address] Dr. Alberta Stern Cardiovascular Lab Reporton 04-17-2021 Cardiovascular Lab Report [facility] Patient Name: [facility] Celia MR #: [id number] Department of Physician: [facility] Raj Jackson M.D. Division of Service Date: 04/16/2021 Cardiology Birthdate: 1950 Adult Cardiovascular Room #: [facility] [address] [place] [address] Cardiovascular Laboratory Report INDICATION: The patient is [...] the informed consent. 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 The left wrist area was prepped and draped in usual fashion. Micropuncture technique was used for access in the left radial artery. A 6-Brazilian x 11 cm sheath was placed. Verapamil was given through the sheath and heparin was administered intravenously. Bilateral selective coronary angiography was then performed using 6-Brazilian JL4 and JR4 diagnostic catheters. Catheters were removed. Additional heparin was given and therapeutic ACT confirmed during the rest of the procedure and additional heparin given as needed. A 6-Brazilian JR4 guiding catheter was advanced and used to engage the right coronary ostium. A [employer] wire was advanced into the distal RCA. Balloon dilatation in the mid RCA was performed using an Emerge 3.5 x 20 mm balloon inflated at 8 atmospheres. Angiography revealed suboptimal results. This was treated using a Synergy XD 4.0 x 24 mm drug-eluting stent deployed at 11 atmospheres and post dilated using NC Quantum Canute 4.0 x 15 mm noncompliant balloon inflated [...] Jackson M.D. Date Trans: 04/17/2021 04:38 A/bryant [id number] Normal [facility] LIPID PROFILEon 04-16-2021 Cholesterol [Mass/Vol] 168 mg/dL Normal 120-200 [facility] Comment on above: Result Comment: CHOL ESTEROL REFERENCE RANGE: 20 YEARS AND OLDER CARDIOVASCULAR RISK Less than 200 mg/dl Low Risk 200 to 239 mg/dl Borderline Risk 240 mg/dl and greater High Risk Performed By: #### [id number] #### [facility] [address] [place] [address], [facility] Cholesterol in HDL [Mass/Vol] 33 mg/dL Normal 23-92 [facility] Comment on above: Result Comment: Slig ht variation in normal range could be due to gender and/or age. HDL CHOLESTEROL REFERENCE RANGE: 20 years and older Cardiovascular Risk > or =60 mg/dL Desirable 40 TO 59 mg/dL Low Risk <40 mg/dL High Risk Performed By: #### [id number] #### [facility] [address] [place] [address], [place] Cholesterol in LDL [Mass/Vol] 119 mg/dL Normal 0-130 [facility] Comment on above: Result Comment: LDL IS A CALCULATION LDL IS ONLY VALID IF THE TRIG IS LESS THAN 400. Performed By: #### [id number] #### [facility] [address] [place] [address], [place] Cholesterol.total/Ch olesterol in HDL [Mass ratio] 5.1 {ratio} High .0-4.5 [facility] Comment on above: Performed By: #### [id number] #### [facility] [address] [place] [address], [place] NON-HDL CHOLESTEROL 135 mg/dL Normal [facility] Comment on above: Performed By: #### [id number] #### [facility] [address] Triglyceride [Mass/Vol] 82 mg/dL Normal 40-149 [facility] Comment on above: Result Comment: TRIG LYCERIDE REFERENCE RANGE: 20 YEARS AND OLDER CARDIOVASCULAR RISK LESS THAN 150 mg/dl LOW RISK 150 TO 199 mg/dl BORDERLINE RISK 200 mg/dl AND GREATER HIGH RISK Performed By: #### [id number] #### [facility] [address] VLDL CHOL 16 mg/dL Normal 0-40 [facility] Comment on above: Performed By: #### [id number] #### [facility] [address] Vital Signs Date Time Vital Sign Value Performing Clinician Facility 04-20-2024 10:38-0500 Body height 177.8 cm [facility] 04-20-2024 10:38-0500 Body mass index (BMI) [Ratio] 48.3 kg/m2 [facility] 04-20-2024 10:38-0500 Body weight 152.86 kg [facility] 04-20-2024 10:38-0500 Diastolic blood pressure 64 mm[Hg] [facility] 04-20-2024 10:38-0500 Heart rate 65 /min [facility] 04-20-2024 10:38-0500 Systolic blood pressure 121 mm[Hg] [facility] 02-18-2024 08:51-0500 Body height 177.8 cm [facility] 02-18-2024 08:51-0500 Body mass index (BMI) [Ratio] 47.9 kg/m2 [facility] 02-18-2024 08:51-0500 Body weight 151.49 kg [facility] 02-18-2024 08:51-0500 Diastolic blood pressure 78 mm[Hg] [facility] 02-18-2024 08:51-0500 Heart rate 66 /min [facility] 02-18-2024 08:51-0500 Systolic blood pressure 144 mm[Hg] [facility] 10-18-2023 10:17-0400 Body height 177.8 cm [facility] 10-18-2023 10:17-0400 Body mass index (BMI) [Ratio] 48.6 kg/m2 [facility] 10-18-2023 10:170400 Body weight 153.76 kg [facility] 10-18-2023 10:17-0400 Diastolic blood pressure 69 mm[Hg] [facility] 10-18-2023 10:17-0400 Heart rate 56 /min [facility] 10-18-2023 10:17-0400 Systolic blood pressure 120 mm[Hg] [facility] 08-17-2023 09:25-0400 Body height 177.8 cm [facility] 08-17-2023 09:25-0400 Body mass index (BMI) [Ratio] 108.5 kg/m2 [facility] 08-17-2023 09:25-0400 Body mass index (BMI) [Ratio] 49.2 kg/m2 [facility] 08-17-2023 09:25-0400 Body weight 343 kg [facility] 08-17-2023 09:25-0400 Body weight 155.58 kg [facility] 08-17-2023 09:25-0400 Diastolic blood pressure 70 mm[Hg] [facility] 08-17-2023 09:25-0400 Systolic blood pressure 120 mm[Hg] [facility] 07-08-2023 10:18-0400 Body height 177.8 cm [facility] 07-08-2023 10:18-0400 Body mass index (BMI) [Ratio] 48.3 kg/m2 [facility] 07-08-2023 10:18-0400 Body weight 152.86 kg [facility] 07-08-2023 10:18-0400 Diastolic blood pressure 79 mm[Hg] [facility] 07-08-2023 10:18-0400 Heart rate 66 /min [facility] 07-08-2023 10:18-0400 Systolic blood pressure 148 mm[Hg] [facility] 12-31-2021 11:30-0400 Body height 182.88 cm Ayden Tanner II Other [employer] Other 12-31-2021 11:30-0400 Body mass index (BMI) [Ratio] 44.48 kg/m2 Ayden Tanner II Other [employer] Other 12-31-2021 11:30-0400 Body weight 148.78 kg Ayden Tanner II Other [employer] Other Encounters Encounter Date Encounter Type Care Provider Facility Start: 05-11-2024 End: 05-11-2024 ambulatory [facility] Start: 04-20-2024 End: 04-20-2024 ambulatory [facility] Work Phone: Start: 04-20-2024 End: 04-20-2024 Patient encounter procedure [facility] Work Phone: Start: 02-18-2024 End: 02-18-2024 Patient encounter procedure [facility] Work Phone: Start: 02-15-2024 Non-patient / Non-visit [facility] Work Phone: Start: 10-18-2023 End: 10-18-2023 ambulatory [facility] Work Phone: Start: 10-18-2023 End: 10-18-2023 Patient encounter procedure [facility] Work Phone: Start: 08-17-2023 End: 08-17-2023 ambulatory [facility] Work Phone: Start: 08-17-2023 End: 08-17-2023 Patient encounter procedure [facility] Work Phone: Start: 07-13-2023 Patient encounter procedure [facility] Start: 07-08-2023 End: 07-08-2023 ambulatory [facility] Work Phone: Start: 07-08-2023 End: 07-08-2023 Patient encounter procedure [facility] Work Phone: Start: 01-18-2023 End: 01-18-2023 ambulatory Desi Barth Other [employer] Other Start: 01-18-2023 Telephone encounter Desi Barth [facility] Start: 12-02-2022 End: 12-02-2022 ambulatory Desi Barth Other [employer] Other Start: 12-02-2022 Telephone encounter Desi Barth [facility] Start: 12-01-2022 End: 12-01-2022 ambulatory Desi Barth Other [employer] Other Start: 12-01-2022 Telephone encounter Desi Barth [facility] Start: 04-30-2022 End: 05-01-2022 ambulatory [facility] Facility:[facility]1 Start: 03-30-2022 ambulatory [facility] Facility :[facility] Start: 12-31-2021 Office outpatient ne w 45 minutes Ayden Tanner II [facility] Start: 12-31-2021 End: 12-31-2021 ambulatory MD Desi Barth Work Phone: [employer] Other Start: 12-31-2021 End: 12-31-2021 Patient encounter procedure MD Desi Barth Work Phone: [facility] Start: 11-27-2021 Adult health examination Desi Barth Other [employer] Other Start: 11-27-2021 End: 11-28-2021 ambulatory DESI BARTH Facility:[facility]1 Start: 11-23-2021 End: 11-24-2021 ambulatory DESI BARTH Facility:[facility] Start: 09-01-2021 End: 09-02-[address] LESLI JACKSON Facility:[facility] Start: 07-02-[address] LESLI JACKSON Fac ility:[facility]1 Start: 05-15-2021 End: 08-21-[address] LESLI JACKSON Facility:[facility]1 Start: 04-16-2021 End: 04-17-2021 ambulatory REFERRED SELF Facility:[facility] Procedures Date Procedure Procedure Detail Performing Clinician Start: 12-31-2021 Plain X-ray of left hip MD Desi Barth Work Phone: Screening for malign ant neoplasm of prostate Desi Barth Other Plan of Treatment Date Care Activity Detail Author Comprehensive metabo lic 2000 panel - Serum or Plasma [facility] enter Microalbumin [Mass/volume] in Urine [facility] XR Ankle - left GE 3 Views F [facility] XR Foot - left GE 3 Views Fi [facility] Payers Date Payer Category Payer Medicare [id number] 1960 Self-pay [id number] 1960 Unknown [id number] 1950 Unknown [id number] 1950 Unknown [id number] 1950 Unknown [id number] 1950 Unknown [id number] 1950 Unknown [id number] 1950 Unknown [id number] 1950 Unknown [id number] 1950 Unknown [id number] Medicare Medicare [id number] Unknown [id number] Unknown [employer] [facility] PFF S [id number] Social History Date Type Detail Facility Sex Assigned At [employer] Other Start: 1950 Sex Assigned At Male F [facility] Start: 08-17-2023 End: 04-20-2024 Tobacco smoking status NHIS Never smoked tobacco (finding) [facility] Start: 04-20-2024 Sex Male (finding) [facility] Medical Equipment Procedure Code Equipment Code Equipment Origin al Text Equipment Identifier Dates Capsule endoscopy, for patency of lumen evaluation Video capsule endoscopy system [id number] [facility] Start: 05-13-2020 Clinical Notes 03-15-2020 to 05-12-2024 Note Date & Type Note Facility 05-12-2024 Note [facility] Cardiology Co nsult - New Consult 05/12/24 Referring Provider: [facility] Celia Prasad is referred to clinic pharmacists for lipid management, specifically to start zetia or bempedoic acid. Note from provider states patient reports weight gain with statins and takes breaks from taking. Electronic order received from patient's cardiology provider. Will call patient to schedule. Kortney Camarena, GabrielleD MA Cardiology [facility] 05-11-2024 Note Cardiovascular Medic ine [facility] SUBJECTIVE Chief Complaint Patient presents with Coronary [...] of lumbar region Coronary artery disease involving [place] coronary artery of [place] heart without angina pectoris Dyslipidemia associated with [...] Final Atrial Rate 04/16/2021 63 BPM Final ME Interval 04/16/2021 224 ms Final QRS DURATION 04/16/2021 108 ms Final QT Interval 04/16/2021 416 ms Final QTC CALCULATION(BAZETT) 04/16/2021 425 ms Final P [place]lew 04/16/2021 53 degrees Final R-Curlew 04/16/2021 9 degrees Final T Wave [place] 04/16/2021 157 degrees Final Diagnosis 04/16/2021 F (more content not included)... [facility] 05-11-2024 Note Patient here for 1 [...] All other systems reviewed and are negative. [facility] 02-18-2024 Evaluation note Diagnosis Onset Date Resolution Diabetic foot acute February 8:49am Type 2 diabetes mellitus with hyperglycemia acute February 18, 2024 8:49am Acute left ankle pain acute Apr 10:32am [facility] Work Phone: 1(128) 559-922310-19-2022 Evaluation note* Encounter Date Diagnosis Assessment Notes [...] the future to give me a call. [employer] Other 09-15-2022 NotePROCEDURE: XR HIP LT 2 [...] Electronically authenticated by: JANE HILL Date: 2021-11-27 10:53[facility]01-01-2021 History general Narrative - Reported* Type Description Date Medical History diabetes Medical History hypertension Surgical History Problem Title : cataracts remov ed, Problem Status : Active, Surgical History Problem Title : [place] noscopy, EGD - Dr. Michael - Mar [...] Vitrectomy 2018 , Problem Status : Active, [facility] Other Evaluation noteNo assessment information available [facility] Work Phone: Evaluation noteNo InformationNortFoundations [facility] [employer] Other Evaluation note* Diagnosis Onset Date Resolution Status Essential (primary) hypertension acute Hypertension acute Screening PSA (prostate specific antigen) acute Type 2 diabetes mellitus with hyperglycemia acute [facility] Work Phone: Evaluation note* Diagnosis Onset Date Resolution Status Essential (primary) hypertension acute Hypertension acute Medicare annual wellness visit, subsequent acute Screening PSA (prostate specific antigen) acute Type 2 diabetes mellitus with hyperglycemia acute [facility] Work Phone: Evaluation note* Diagnosis Onset Date Resolution Status Foreign body acute [facility] Work Phone: History general Narrative - Reported* Type Description Date Medical History diabetes Medical History hypertension Surgical History hernia repair Surgical History vasectomy Surgical History pilonidal cyst [employer] Other Summary Purpose Family History No Family [...] and content) DATE CREATED AUTHOR 04/18/2021 [facility] DATE CREATED AUTHOR AUTHOR'S ORGANIZ ATION 01/07/2022 [facility] DATE CREATED AUTHOR AUTHOR'S ORGANIZ ATION 05/06/2022 [facility] DATE CREATED AUTHOR AUTHOR'S ORGANIZ ATION 05/13/2024 [facility] REASON FOR VISIT (unrecogniz ed [...] End: August 17, 2023 Noemi Galindo APRN CAD ENGINEER-C Attending Provider Act jay Start: August 17, [...] BE BASED ON THE PRIMARY CLINICAL RECORDS. [employer] provides no warranty or guarantee of the accuracy or completeness of information in this document.
[2024-05-16 23:48] LABS: Lactate/Lactic Acid 2.1 mmol/L (0.4-2.0)
[2024-05-16] MEDS: 0.9 % SODIUM CHLORIDE 1,000 ML 125 ML IV (23:52)
[2024-05-17] VITALS (10 sets, daily range): BP systolic 115–153; BP diastolic 66–83; PULSE 72–96; TEMP 36.9–37.1; O2SAT 90–91
[2024-05-17 06:02] LABS: Basophils Absolute Auto 0.1 10^3/uL (0.0-0.1); Basophils Percent Auto 0.4 % (0.2-2.0); Eosinophils Percent Auto 0.2 % (0.9-7.0); Hematocrit 37.2 % (42.0-54.0); Hemoglobin 12.2 g/dL (14.0-18.0); Immature Granulocytes Abs Auto 0.08 10^3/uL (0.00-0.03); Immature Granulocytes Pct Auto 0.5 % (0.0-0.5); Lymphocytes Absolute Auto 2.2 10^3/uL (1.2-3.8); Lymphocytes Percent Auto 13.7 % (20.5-60.0); Mean Corpuscular HGB Conc 32.8 g/dL (29.9-35.2); Mean Corpuscular Volume 85.5 fL (80.0-94.0); Mean Platelet Volume 9.7 fL (9.5-13.5); Monocytes Absolute Auto 1.5 10^3/uL (0.3-0.8); Monocytes Percent Auto 9.1 % (1.7-12.0); Neutrophils Absolute Auto 12.4 10^3/uL (1.4-6.5); Neutrophils Percent Auto 76.1 % (43.0-75.0); Platelet Count 209 10^3/uL (150-450); Red Blood Count 4.35 10^6/uL (4.70-6.10); Red Cell Distribution Width 13.9 % (11.0-15.0); White Blood Count 16.3 10^3/uL (4.0-11.0)
[2024-05-17 06:18] LABS: BUN Creatinine Ratio 10.3; Calcium 8.5 mg/dL (8.5-10.1); Carbon Dioxide 25.8 mmol/L (21.0-32.0); Chloride 99 mmol/L (98-107); Estimated GFR (African America >60 (>=60 mL/min/1.73m^2); Estimated GFR (Non-African Ame >60 (>=60 mL/min/1.73m^2); Glucose 151 mg/dL (74-106); Potassium 3.8 mmol/L (3.5-5.1); Sodium 136 mmol/L (136-145)
--- NOTE | 2024-05-17 07:09 | P.HP_ITS ---
HPI H&P: HPI History of Present Illness Chief complaint: Fever,UTI Narrative: Patient to the emergency room with fever, increasing weakness, found of acute UTI with a fever but positive lactic acidosis as well, with sinus tachycardia meeting criteria for sepsis Opioid HPI Opioid Management Most Recent Pain and Opioid Data: Last Pain Assessment 05/17/24 12:01 Last ORT Total Score 0 05/16/24 23:21 05/16/24 Last ORT Risk Category Low Risk 05/16/24 23:21 05/16/24 Review of Systems ROS Status of ROS 10 or more systems reviewed and unremark able except as noted in history and below PFSH PFSH Family History (Updated 05/16/24 @ 23:40 by Zully Zambrano) Father Family history of hypertension Family history of cancer Social History (Updated 05/16/24 @ 23:41 by Zully Zambrano) Within the past year, how often did you have a drink containing alcohol: never Score interpretation: A score less than 4 is consistent with normal alcohol consumption. Smoking status: Former smoker Non-prescribed substance use: denies use Previous occupational history: retired Highest level of school completed/degree received: high school graduate Are you now , , , , never or living with a partner: In a typical week, how many times do you talk on the telephone with family, friends, or neighbors: 3 or more times per week How often do you get together with friends or relatives: 3 or more times per week Little interest or pleasure in doing things: not at all Feeling down, depressed, or hopeless: not at all Feel stressed/tense/nervous/anxious/difficulty sleeping: not at all Do you think of yourself as: straight/heterosexual Gender Identity: male Meds Home Medications and Allergies Home Medications ?Medication ?Instructions ?Recorded ?Confirmed ?Type amlodipine 10 mg tablet 10 mg PO DAILY 05/16/24 05/16/24 History aspirin 81 mg capsule 81 mg PO DAILY 05/16/24 05/16/24 History furosemide 40 mg tablet 40 mg PO .COMPLEX PRN edema 05/16/24 05/16/24 History glipizide 10 mg tablet, extended 10 mg PO DAILY 05/16/24 05/16/24 History release 24 hr isosorbide mononitrate 60 mg 60 mg PO DAILY 05/16/24 05/16/24 History tablet,extended release 24 hr losartan 100 1 tab PO DAILY 05/16/24 05/16/24 History mg-hydrochlorothiazide 25 mg tablet metformin 1,000 mg tablet 1,000 mg PO BIDWM 05/16/24 05/17/24 History metoprolol tartrate 50 mg tablet 50 mg PO BID 05/16/24 05/17/24 History rosuvastatin 20 mg tablet 20 mg PO .QHS 05/16/24 05/17/24 History cefdinir 300 mg capsule 600 mg (2 x 300 mg) PO DAILY #20 05/17/24 Rx caps Allergies Allergy/AdvReac Type Severity Reaction Status Date / Time No Known Drug Allergies Allergy Verified 05/16/24 20:11 Exam Constitutional Vital Signs, click to edit/add: Last Vital Signs Temp 98.5 F 05/17/24 03:18 Pulse 87 05/17/24 05:36 Resp 20 05/17/24 03:18 BP 153/83 H 05/17/24 03:18 Pulse Ox 91 L 05/17/24 03:18 O2 Del Method Room Air 05/17/24 03:18 Documenting provider has reviewed patient's vital signs: yes Common normals: no apparent distress, average body habitus, oriented x3, no limitations, healthy appearing, alert and well nourished Chest Common normals: inspection of chest normal and palpation of chest normal Respiratory Common normals: normal respiratory effort and no retractions Cardio Common normals: regular rate and regular rhythm GI Common normals: Normal to inspection, nondistended, normoactive bowel sounds present and soft to palpation Common normals: external exam normal Back & Pelvis Common normals: no CVA tenderness Results Labs Labs: Short CBC 05/16/24 05/17/24 Range/Units 20:20 05:36 WBC 19.4 H 16.3 H (4.0-11.0) 10^3/uL Hgb 13.1 L 12.2 L (14.0-18.0) g/dL Hct 38.8 L 37.2 L (42.0-54.0) % Plt Count 236 209 (150-450) 10^3/uL BMP 05/16/24 05/17/24 20:20 05:36 Sodium 134 L 136 Potassium 4.1 3.8 Chloride 99 99 Carbon Dioxide 23.2 25.8 BUN 10.0 9.0 Creatinine 1.00 0.87 Glucose 230 H 151 H Calcium 8.8 8.5 Liver Function 05/16/24 Range/Units 20:20 Total Bilirubin 0.8 (0.2-1.0) mg/dL AST 24 (15-37) U/L ALT 23 (16-63) U/L Alkaline Phosphatase 90 (46-116) U/L Albumin 3.2 L (3.4-5.0) g/dL Urine 05/16/24 Range/Units 20:15 Urine Color Yellow (YELLOW) Urine Clarity Clear (CLEAR) Urine pH 6.0 (5.0-9.0) Ur Specific [place] 1.020 (1.005-1.025) Urine Protein 30 A (NEG/TRACE) mg/dL Urine Glucose (UA) 100 A (NEGATIVE) mg/dL Assessment and Plan Assessment and Plan (1) Acute UTI: (2) Fever: Plan Admission findings sign tachycardia cardia, respiratory distress, fever, lactic acidosis consistent with severe sepsis, hydrated in ER, secondary to acute UTI Severe sepsis secondary to acute UTI but patient is much improved this morning. No more fevers feels back to his baseline at a dose of Levaquin this morning and see how his morning progresses possible discharge Diabetes mellitus-insulin sliding scale Hypertension-continue with home medications Hypercholesterolemia continue with home medications Admission status: Patient placed in observation status and despite the severe sepsis, patient is improved and will be discharged to home later this morning likely will maintain oxygen status
[2024-05-17 07:47] LABS: Troponin I High Sensitivity 11.4 pg/mL (4.0-76.1)
[2024-05-17 07:49] LABS: Glucometer 156 mg/dL (74-106)
--- NOTE | 2024-05-17 08:54 | CM.NOTE ---
Rounds made with Dr. Phelps, discussed with pt findings (UTI) and need for antibiotics at discharge. Pt will have another IV dose of antibiotic at hospital and then discharge to home.
--- NOTE | 2024-05-17 09:01 | P.DS_ITS ---
DS: Providers Provider Date of admission: 05/16/24 23:08 Primary care physician: Desi David MD DS: Diagnosis Discharge Diagnosis (1) Acute UTI: (2) Fever: Plan Admission findings sign tachycardia cardia, respiratory distress, fever, lactic acidosis consistent with severe sepsis, hydrated in ER, secondary to acute UTI Severe sepsis secondary to acute UTI but patient is much improved this morning. No more fevers feels back to his baseline at a dose of Levaquin this morning and see how his morning progresses possible discharge Diabetes mellitus-insulin sliding scale Hypertension-continue with home medications Hypercholesterolemia continue with home medications Admission status: Patient placed in observation status and despite the severe sepsis, patient is improved and will be discharged to home later this morning likely will maintain oxygen status DS: Summary Hospital Course Hospital Course: Patient admitted with severe sepsis due to UTI, and given IV hydration overnight, IV antibiotics, he felt much improved the following morning concern for progression of the sepsis did not happen, at this point we will get another dose of Levaquin this morning and if stable later this morning he will be discharged to home in improving condition. Medications see list. Follow-up with his PCP within the next week. Time Spent with Patient Time attestation: Total time spent providing and/or coordinating discharge services: Exam Constitutional Vital Signs, click to edit/add: Last Vital Signs Temp 98.8 F 05/17/24 08:53 Pulse 92 H 05/17/24 08:53 Resp 18 05/17/24 08:55 BP 132/73 05/17/24 08:53 Pulse Ox 90 L 05/17/24 08:53 O2 Del Method Room Air 05/17/24 08:53 Documenting provider has reviewed patient's vital signs: yes Common normals: no apparent distress, average body habitus, oriented x3, no limitations, healthy appearing, alert and well nourished Chest Common normals: inspection of chest normal and palpation of chest normal Respiratory Common normals: normal respiratory effort and no retractions Cardio Common normals: regular rate and regular rhythm GI Common normals: Normal to inspection, nondistended, normoactive bowel sounds present and soft to palpation Common normals: external exam normal Back & Pelvis Common normals: no CVA tenderness DS: Data Data Completed and Pending Labs on day of discharge: Labs from last 24 hours 05/17/24 05/17/24 05/16/24 07:47 05:36 23:29 WBC 16.3 H RBC 4.35 L Hgb 12.2 L Hct 37.2 L MCV 85.5 MCH 28.0 MCHC 32.8 RDW 13.9 Plt Count 209 MPV 9.7 Neut % (Auto) 76.1 H Lymph % (Auto) 13.7 L [place] % (Auto) 9.1 Eos % (Auto) 0.2 L Baso % (Auto) 0.4 Neut # (Auto) 12.4 H Lymph # (Auto) 2.2 [place] # (Auto) 1.5 H Eos # (Auto) 0.0 Baso # (Auto) 0.1 Abs Immat Gran (auto) 0.08 H Seg Neuts % (Manual) Lymphocytes % (Manual) Monocytes % (Manual) Eosinophils % (Manual) Basophils % (Manual) Imm/Tot Granulo (auto) 0.5 Neutrophils # (Manual) Lymphocytes # (Manual) Monocytes # (Manual) Eosinophils # (Manual) Basophils # (Manual) Toxic Granulation Sodium 136 Potassium 3.8 Chloride 99 Carbon Dioxide 25.8 Anion Gap 15.0 BUN 9.0 Creatinine 0.87 Est GFR ( Amer) >60 Est GFR (Non-Af Amer) >60 BUN/Creatinine Ratio 10.3 Glucose 151 H Lactate 2.1 H Calcium 8.5 Total Bilirubin AST ALT Alkaline Phosphatase Troponin I High Sens NT-Pro-B Natriuret Pep Total Protein Albumin Globulin Albumin/Globulin Ratio Urine Color Urine Clarity Urine pH Ur Specific [place] Urine Protein Urine Glucose (UA) Urine Ketones Urine Occult Blood Urine Nitrite Urine Bilirubin Urine Urobilinogen Ur Leukocyte Esterase Urine RBC Urine WBC Ur Squamous Epith Cells Urine Crystals Urine Bacteria Urine Casts Urine Mucus Ur Culture Indicated? Influenza Type A Ag Influenza Type B Ag SARS-CoV-2 Ag (CV2AG) POC Glucose 156 H 05/16/24 05/16/24 05/16/24 20:40 20:20 20:15 WBC 19.4 H RBC 4.58 L Hgb 13.1 L Hct 38.8 L MCV 84.7 MCH 28.6 MCHC 33.8 RDW 13.8 Plt Count 236 MPV 9.8 Neut % (Auto) Lymph % (Auto) [place] % (Auto) Eos % (Auto) Baso % (Auto) Neut # (Auto) Lymph # (Auto) [place] # (Auto) Eos # (Auto) Baso # (Auto) Abs Immat Gran (auto) Seg Neuts % (Manual) 89.0 H Lymphocytes % (Manual) 3.0 L Monocytes % (Manual) 8.0 Eosinophils % (Manual) 0.0 L Basophils % (Manual) 0.0 L Imm/Tot Granulo (auto) Neutrophils # (Manual) 17.26 H Lymphocytes # (Manual) 0.58 L Monocytes # (Manual) 1.55 H Eosinophils # (Manual) 0.00 Basophils # (Manual) 0.00 Toxic Granulation 1+ Sodium 134 L Potassium 4.1 Chloride 99 Carbon Dioxide 23.2 Anion Gap 15.9 BUN 10.0 Creatinine 1.00 Est GFR ( Amer) >60 Est GFR (Non-Af Amer) >60 BUN/Creatinine Ratio 10.0 Glucose 230 H Lactate 2.8 H* Calcium 8.8 Total Bilirubin 0.8 AST 24 ALT 23 Alkaline Phosphatase 90 Troponin I High Sens 11.4 NT-Pro-B Natriuret Pep 324.0 Total Protein 7.2 Albumin 3.2 L Globulin 4.0 Albumin/Globulin Ratio 0.8 Urine Color Yellow Urine Clarity Clear Urine pH 6.0 Ur Specific [place] 1.020 Urine Protein 30 A Urine Glucose (UA) 100 A Urine Ketones Negative Urine Occult Blood Moderate A Urine Nitrite Negative Urine Bilirubin Negative Urine Urobilinogen 1.0 Ur Leukocyte Esterase Small A Urine RBC 20-50 A Urine WBC 5-10 A Ur Squamous Epith Cells None seen Urine Crystals None seen Urine Bacteria Trace A Urine Casts None seen Urine Mucus Trace A Ur Culture Indicated? Yes-[facility] Influenza Type A Ag Negative Influenza Type B Ag Negative SARS-CoV-2 Ag (CV2AG) Negative POC Glucose Preliminary micro results at discharge 05/16/24 20:15 Urine Culture - Preliminary Urine,Clean Catch Pending - Specimen sent to [facility] Discharge Plan Discharge Disposition: Home, Self-Care Condition: Good Discharge Medications: New cefdinir 300 mg capsule 600 mg PO DAILY Qty: 20 0RF Continued furosemide 40 mg tablet 40 mg PO .COMPLEX PRN (Reason: edema) Rx Instructions: 40 mg orally 2 to 3 days PRN; glipizide 10 mg tablet extended release 24hr 10 mg PO DAILY isosorbide mononitrate 60 mg tablet extended release 24 hr 60 mg PO DAILY losartan-hydrochlorothiazide 100-25 mg tablet 1 tab PO DAILY metformin 1,000 mg tablet 1,000 mg PO BIDWM metoprolol tartrate 50 mg tablet 50 mg PO BID rosuvastatin 20 mg tablet 20 mg PO .QHS amlodipine 10 mg tablet 10 mg PO DAILY aspirin 81 mg capsule 81 mg PO DAILY Activity: increase activity as tolerated and return to work once cleared by your PCP/specialist Diet: diabetic diet Diet Detail: 2199 ADA Diabetic Diet Print Language: Hungarian Patient Instructions: Cefdinir (By mouth) (Omnicef), Urinary Tract Infection in Men (DC), Fever in Adults (GEN) Forms: Portal Instructions Follow Up Appointments: May 22 @ 2pm with Dr. David [phone] Discharge Date/Time: 05/17/24 12:18
[2024-05-17] MEDS: AMLODIPINE BESYLATE 5 MG TABLET 10 MG PO (09:46)
[2024-05-17] MEDS: ISOSORBIDE MONONITRATE 60 MG TAB.ER.24H PO (09:46)
[2024-05-17] MEDS: ASPIRIN 81 MG TABLET.DR PO (09:46)
[2024-05-17] MEDS: LEVOFLOXACIN IN DEXTROSE 5 % 750 MG/150 ML PREMIX 100 MG IV (09:46)
[2024-05-17] MEDS: METOPROLOL TARTRATE 50 MG TABLET PO (09:46)
[2024-05-17] MEDS: ENOXAPARIN SODIUM 40 MG/0.4 ML SYRINGE SUBQ (09:47)
[2024-05-17] MEDS: LOSARTAN POTASSIUM 50 MG TABLET 100 MG PO (09:47)
--- NOTE | 2024-05-17 10:05 | CM.NOTE ---
Medicare Outpatient Observation Notice discussed with pt, pt verbalizes understanding and signs paper. Original given to pt and copy placed on pt's chart.
[2024-05-17 17:36] LABS: A. calcoaceticus-baumannii Cpx NOT DETECTED (NOT DETECTE); Bacteroides fragilis NOT DETECTED (NOT DETECTE); Candida albicans NOT DETECTED (NOT DETECTE); Candida auris NOT DETECTED (NOT DETECTE); Candida glabrata NOT DETECTED (NOT DETECTE); Candida krusei NOT DETECTED (NOT DETECTE); Candida parapsilosis NOT DETECTED (NOT DETECTE); Candida tropicalis NOT DETECTED (NOT DETECTE); Cryptococcus neoformans/gattii NOT DETECTED (NOT DETECTE); Enterobacter cloacae complex NOT DETECTED (NOT DETECTE); Enterobacterales NOT DETECTED (NOT DETECTE); Enterococcus faecalis NOT DETECTED (NOT DETECTE); Enterococcus faecium NOT DETECTED (NOT DETECTE); Haemophilus influenzae NOT DETECTED (NOT DETECTE); Klebsiella aerogenes NOT DETECTED (NOT DETECTE); Klebsiella pneumoniae group NOT DETECTED (NOT DETECTE); Listeria monocytogenes NOT DETECTED (NOT DETECTE); Neisseria meningitidis NOT DETECTED (NOT DETECTE); Proteus spp. NOT DETECTED (NOT DETECTE); Pseudomonas aeruginosa NOT DETECTED (NOT DETECTE); Salmonella spp. NOT DETECTED (NOT DETECTE); Serratia marcescens NOT DETECTED (NOT DETECTE); Staphylococcus epidermidis NOT DETECTED (NOT DETECTE); Staphylococcus lugdunensis NOT DETECTED (NOT DETECTE); Stenotrophomonas maltophilia NOT DETECTED (NOT DETECTE); Streptococcus agalactiae NOT DETECTED (NOT DETECTE); Streptococcus pneumoniae NOT DETECTED (NOT DETECTE); Streptococcus pyogenes NOT DETECTED (NOT DETECTE); Streptococcus spp. NOT DETECTED (NOT DETECTE)
[2024-05-17 19:10] LABS: Staphylococcus spp. DETECTED (NOT DETECTE)
[2024-05-17 19:11] LABS: Source Blood
--- NOTE | 2024-05-18 15:00 | CM.DCFOLLOWU ---
1st attempt 05/18/24, subscriber not in network
--- NOTE | 2024-05-19 14:46 | CM.NOTE ---
Urine culture results faxed to Dr. David's office ([phone]). Notified Flakita, office nurse, of abnormal specimen and po antibiotics given at discharge. Mr. Prasad has appointment with Dr. David on Wednesday, May 22, 2024.
--- NOTE | 2024-05-19 15:03 | PC.NURSE ---
05/19/24 1502 LM on pt's phone [phone] to return call from [facility] ER re lab test results.
--- NOTE | 2024-05-19 15:09 | CM.DCFOLLOWU ---
2nd attempt, subscriber not in service 05/19/24
--- NOTE | 2024-05-22 15:15 | CM.DCFOLLOWU ---
3rd attempt 05/22/24, subscriber not in service
--- NOTE | 2024-05-23 10:08 | PC.NURSE ---
contacted pt at [phone] and informed pt of new prescription called into pharmacy of his choice and informed pt to stip taking the original Cefdinir prescribed. Pt verbalized understanding.
== END 2024-05-17 12:18 | disposition home or self-care (01) ==
LOC: ER 22:42 → MS 23:14
PROVIDERS: Registered Nurse; Admitting Provider Family Medicine; Emergency Provider Emergency Medicine; PCP Family Medicine; Visit Provider Family Medicine
DX: A41.53 Sepsis due to Serratia (principal); N39.0 Urinary tract infection, site not specified; R50.9 Fever, unspecified; R65.20 Severe sepsis without septic shock; R06.03 Acute respiratory distress; E11.9 Type 2 diabetes mellitus without complications; I10 Essential (primary) hypertension; E78.00 Pure hypercholesterolemia, unspecified; Z79.84 Long term (current) use of oral hypoglycemic drugs; Z79.899 Other long term (current) drug therapy; Z87.891 Personal history of nicotine dependence; E66.01 Morbid (severe) obesity due to excess calories; R09.02 Hypoxemia; Z68.41 Body mass index [BMI] 40.0-44.9, adult
CPT/HCPCS: 36415; 71046; 80048; 80053; 81001; 83605; 83880; 84484; 85007; 85025; 85027; 87040; 87086; 87150; 87186; 87804; 87811; 93005; 96365; 96366; 96367; 96372; 99285; G0378; J0696; J1650

== ENCOUNTER 2024-06-02 11:44 | Outpatient (OUT) | payer MEDICARE, SELFPAY ==
[2024-06-02 12:43] LABS: Bilirubin Urine NEGATIVE (NEGATIVE); Blood Urine NEGATIVE (NEGATIVE); Clarity Urine CLEAR (CLEAR); Color Urine LT. YELLOW (YELLOW); Glucose Urine UA NEGATIVE (NEGATIVE); Ketones Urine NEGATIVE (NEGATIVE); Leukocyte Esterase Urine NEGATIVE (NEGATIVE); Nitrite Urine NEGATIVE (NEGATIVE); Protein Urine NEGATIVE (NEG/TRACE)
== END 2024-06-02 11:45 | disposition home or self-care (01) ==
LOC: LAB 11:47
PROVIDERS: PCP Family Medicine; Visit Provider Family Medicine
DX: R30.0 Dysuria (principal)
CPT/HCPCS: 81003; 87086

== ENCOUNTER 2024-11-28 08:58 | Outpatient (OUT) | payer MEDICARE, SELFPAY ==
--- OUTSIDE RECORDS SUMMARY | 2024-11-14 06:49 | XMS_ITS | Continuity of Care Document ---
Author Organization [facility] Address [address] [place] [address] Phone Care Team Providers Care Clay Stain Mixer Name Role Phone Desi David MD Primary Care Provider Desi David MD Attending Provider Care Teams Patient Care Team Team Status: Active Member Role Status Dates Desi David MD Primary Care Provider Active Visit Care Team Team Status: Inactive Member Role Status Dates Desi David MD Primary Care Provider Active Start: August 23, 2024 End: August 23, 2024 Desi David MD Attending Provider Active St art: August 23, 2024 End: August 23, 2024 Patient Care Team Team Status: Inactive Member Role Status Dates Desi David MD Primary Care Provider Active Start: November 14, 2024 End: November 14, 2024 Desi David MD Attending Provider Active St art: November 14, 2024 End: November 14, 2024 Chief Complaint and Reason for Visit Chief Complaint Admit Date cough August 23, 2024 9:29 am Wellness November 14, 2024 10:21am Reason for Visit Admit Date Type 2 diabetes mellitus with hyperglyce ciro August 23, 2024 9:29am Viral URI with cough August 23, 2024 9:2 9am Bradycardia November 14, 2024 10:21am Essential (primary) hypertension Septemb 2024 10:21am Hypertension November 14, 2024 10:21am Type 2 diabetes mellitus with hyperglyce ciro November 14, 2024 10:21am Allergies, Adverse Reactions, Alerts Allergen Type Severity Reaction Last Updated Verified Status atorvastatin Allergy Unknown Comment:Myalgias Septem jhonatan 2024 10:29am Yes Active Social History Smoking Status Status Start Date End Date Date of Observa tion Never smoked tobacco (finding) April 20, 2024 10:31am Observation Status Observation Response Date of Response Legal Sex Male (finding) Sex Assigned At Male 1950 Family History Relationship Condition Age at Onset Recorded Date/T namita father Malignant neoplasm of prostate Unknown father Unknown mother Unknown Problems Active Problems Medical Problem Onset Date Status Comments UTI (urinary tract infection) Unknown Active Medicare annual wellness vis it, subsequent Unknown Active Screening PSA (prostate spec ific antigen) Unknown Active Type 2 diabetes mellitus wit h hyperglycemia Unknown Active Viral URI with cough Unknown Active Foreign body Unknown Active Diabetic foot Unknown Active Bradycardia Unknown Active Dysuria Unknown Active Acute left ankle pain Unknown Active Essential (primary) hypertension Unknown Active Hypertension Unknown Active Problem List cl wily-up per request of Phys. EHR Cmte Medications Medication Status Dose Units Route Directions Qty Days St art Date Stop Date End Date Instructions Adherence Losartan-Hy drochloroth iazide 100-25 mg tablet Active 1 TAB PO Daily July 06, 2023 9:37am Complies with drug therapy Metformin 1,000 mg tablet Discont inued 1000 MG PO Twice daily 180 July 06, 2023 9:37am October 11, 2023 2:19p m Glipizide 10 mg tablet extended release 24hr Discont inued 0 .ROUTE .COMPLEX July 26, 2023 12:46p m Augus t 2023 9:40a m Take 1 tablet by mouth once daily Metformin 1,000 mg tablet Discont inued 0 .ROUTE .COMPLEX 180 October 11, 2023 2:19pm Octob er 2023 8:53p m TAKE 1 TABLET BY MOUTH TWICE DAILY WITH A MEAL Glipizide 10 mg tablet extended release 24hr Discont inued 0 .ROUTE .COMPLEX 90 October 21, 2023 9:52am Febru grzegorz 2024 3:11p m Take 1 tablet by mouth once daily Metformin 1,000 mg tablet Discont inued 0 .ROUTE .COMPLEX 180 Octobe r 2023 8:53pm Janua ry 2024 2:13p m TAKE 1 TABLET BY MOUTH TWICE DAILY WITH A MEAL Metformin 1,000 mg tablet Discont inued 0 .ROUTE .COMPLEX 180 Maruar y 2024 2:13pm June 16, 2024 9:00a m TAKE 1 TABLET BY MOUTH TWICE DAILY WITH A MEAL Glipizide 10 mg tablet extended release 24hr Discont inued 0 .ROUTE .COMPLEX 90 2024 3:11pm June 16, 2024 9:00a m Take 1 tablet by mouth once daily Metformin 1,000 mg tablet Discont inued 0 .ROUTE .COMPLEX 180 June 16, 2024 8:59am October 09, 2024 3:24p m TAKE 1 TABLET BY MOUTH TWICE DAILY WITH A MEAL Glipizide 10 mg tablet extended release 24hr Discont inued 0 .ROUTE .COMPLEX 90 June 16, 2024 8:59am October 09, 2024 3:24p m Take 1 tablet by mouth once daily Blood-Gluco se Meter (Onetouch Ultra2 Meter) [facility] [place] Active 0 .Route 1 October 09, 2024 12:00a m to test blood sugar twice daily Blood Sugar Diagnostic (Onetouch Ultra Test) strip Active 0 .Route 300 October 09, 2024 12:00a m to test blood sugar twice daily Lancets (Onetouch Ultrasoft 2 Lancet) 30 gauge [facility] Active 0 .Route 300 October 09, 2024 12:00a m to test blood sugar twice daily Metformin 1,000 mg tablet Discont inued 0 .ROUTE .COMPLEX 180 October 09, 2024 3:24pm October 10, 2024 3:19p m TAKE 1 TABLET BY MOUTH TWICE DAILY WITH A MEAL Glipizide 10 mg tablet extended release 24hr Discont inued 0 .ROUTE .COMPLEX 90 October 09, 2024 3:24pm October 10, 2024 3:19p m Take 1 tablet by mouth once daily Glipizide 10 mg tablet extended release 24hr Active 0 .ROUTE .COMPLEX 90 October 10, 2024 3:19pm Take 1 tablet by mouth once daily Complies with drug therapy Metformin 1,000 mg tablet Active 0 .ROUTE .COMPLEX 180 October 10, 2024 3:19pm TAKE 1 TABLET BY MOUTH TWICE DAILY WITH A MEAL Complies with drug therapy Semaglutide (Ozempic) 0.25 mg or 0.5 mg (2 mg/3 mL) pen injector Active 0.5 MG SUBCUT every week October 16, 2024 12:51p m for 4 weeks Complies with drug therapy Metformin 500 mg tablet Discont inued 500 MG PO Twice daily 2020 1:00am July 06, 2023 9:09a m Hydrochloro thiazide 12.5 mg tablet Discont inued 12.5 MG PO Daily 2020 1:00am July 06, 2023 9:09a m Diabetic shoe Active 0 .ROUTE .COMPLEX 1 Decemb er 2023 1:00am 1 pair; Complies with drug therapy Neomycin-Po lymyxin-Hc 3.5-10,000- 1 mg/mL-unit/ mL-% drops,suspe nsion Active 4 DROPS OTIC Three times daily 2024 12:00a m Complies with drug therapy Losartan-Hy drochloroth iazide 100-25 mg tablet Discont inued 1 TAB PO Daily July 06, 2023 12:00a m July 06, 2023 9:37a m Metformin 1,000 mg tablet Discont inued 1000 MG PO Twice daily July 06, 2023 12:00a m July 06, 2023 9:37a m Glipizide 10 mg tablet extended release 24hr Discont inued 10 MG PO Daily July 07, 2023 12:00a m July 26, 2023 12:46 pm FreeTextSig: Take 1 tablet by mouth once daily; Note: Source Status: Refill; Refills: 0; Qty: 90 Tablet; Provider: Frankie Vásquez n 20 mg tablet Active 20 MG PO Daily July 07, 2023 12:00a m FreeTextSi tablet Orally Once a day; Note: Source Status: Taking; Provider: Ciro Hensley II ( ) Complies with drug therapy Losartan 100 mg tablet Discont inued 100 MG PO Daily July 07, 2023 12:00a m July 08, 2023 10:27 am FreeTextSi tablet Orally Once a day; Note: Source Status: Taking; Provider: Ciro Hensley II ( ) Aspirin 81 mg tablet,chew able Active 1 TAB PO Daily July 07, 2023 12:00a m FreeTextSi tablet Orally Once a day; Note: Source Status: Taking; Provider: Ciro Hensley II ( ) Complies with drug therapy Metoprolol Tartrate 50 mg tablet Discont inued 1 TAB PO Twice daily July 07, 2023 12:00a m July 08, 2023 10:28 am FreeTextSi tablet with food Orally Twice a day; Note: Source Status: Taking; Provider: Ciro Hensley II ( ) Amlodipine 10 mg tablet Active 1 TAB PO Daily July 07, 2023 12:00a m FreeTextSi tablet Orally Once a day; Note: Source Status: Taking; Provider: Ciro Hensley II ( ) Complies with drug therapy Clopidogrel 75 mg tablet Active 75 MG PO Daily July 07, 2023 12:00a m FreeTextSi tablet Orally Once a day; Note: Source Status: Taking; Provider: Ciro Hensley II ( ) Complies with drug therapy Isosorbide Mononitrate 30 mg tablet extended release 24 hr Active 1 TAB PO Daily July 07, 2023 12:00a m FreeTextSi tablet in the morning Orally Once a day; Note: Source Status: Taking; Provider: Ciro Hensley II ( ) Complies with drug therapy Metoprolol Tartrate 50 mg tablet Active 50 MG PO Twice daily July 08, 2023 10:27a m FreeTextSi tablet with food Orally Twice a day; Note: Source Status: Taking; Provider: Ciro Hensley II ( ) Complies with drug therapy Glipizide 10 mg tablet extended release 24hr Discont inued 0 .ROUTE .COMPLEX 90 October 18, 2023 9:40am Augus t 2023 9:52a m Take 1 tablet by mouth once daily Meloxicam 7.5 mg tablet Active 7.5 MG PO Daily 14 2024 1:00am Complies with drug therapy Cephalexin 500 mg capsule Discont inued 500 MG PO Three times daily 2024 1:00am May 22, 2024 2:28p m Semaglutide (Ozempic) 0.25 mg or 0.5 mg (2 mg/3 mL) pen injector Discont inued 0.25 MG SUBCUT every week 3 August 23, 2024 12:00a m Augus t 2024 12:51 pm for 4 weeks Medical Equipment Device Date Implanted Device Details Video capsule endoscopy system May 13, 2020 U DI: [id number] Issuing Agency: [facility] Device Id: [id number] Expiration Date: 2021-02-14 Lot Number: [id number] Serial Number: [id number] Relevant Diagnostic Tests and/or Laboratory Data Laboratory Results Test Collection Date/Time Result Date/Time Result Interpretation Reference Range Result Comment Performing Site Bedside Hemoglobin A1c August 23, 2024 10:23am August 23, 2024 10:23am 9.6 % Vital Signs Vital Reading Result Reference Range Collection Date/Time Height 70 [in_i] August 23, 2024 9:45am Weight 151.49 kg August 23, 2024 9:45am Body Temperature 98.6 [degF] 97.6-99.0 August 23, 2024 9:45am Heart Rate 52 /min 60-100 August 23, 2024 9:45am Oxygen saturation by Pulse oximetry 94 % 95-100 August 23, 2024 9:45 am BP Systolic 109 mm[Hg] 100-140 August 23, 2024 9:45am BP Diastolic 65 mm[Hg] 60-100 August 23, 2024 9:45am BMI (Body Mass Index) 47.9 kg/m2 August 132024 9:45am Height 70 [in_i] November 14, 2024 10:26am Weight 148.94 kg November 14, 2024 10:26am Heart Rate 49 /min 60-100 November 14, 2024 10:26am BP Systolic 94 mm[Hg] 100-140 November 14, 2024 10:26am BP Diastolic 57 mm[Hg] 60-100 November 14, 2024 10:26am BMI (Body Mass Index) 47.1 kg/m2 Septem 2024 10:26am Advance Directives Advance Directive Response Recorded Date/ Time Advance Directives No April 20, 2024 11:31am Insurance Providers Guarantor Saurabh Prasad Address [address] [facility] [address] Contact Info. Home Phone: Payer Policy Id Subscriber's Name Subscriber Id Víctoriv e Date Expiration Date Medicare [id number] Saurabh Prasad [id number] [place] [facility] [id number] Saurabh Prasad [id number] [employer] [facility] [id number] Saurabh Prasad [id number] Encounters Encounter Location(s) Arrival/Admit Date Discharge/Depart Date Provider(s) Departed Physician/Prov ider Office Visit -[facility] August 23, 2024 9:29am August 23, 2024 10:22am Desi David MD Departed Physician/Prov ider Office Visit -[facility] November 14, 2024 10:21am November 14, 2024 10:48am Desi David MD Recent Diagnosis Onset Date Admit Date Type 2 diabetes mellitus with hyperglycemia Unkn own August 23, 2024 9:29am Viral URI with cough Unknown August 23, 2024 9:29am Bradycardia Unknown November 14 10:21am Essential (primary) hypertension Unknown November 14, 2024 10:21am Hypertension Unknown November 14 10:21am Type 2 diabetes mellitus with hyperglycemia Unkn own November 14, 2024 10:21am Assessments Diagnosis Onset Date Resolution Status Admit Date Type 2 diabetes mellitus wit h hyperglycemia acute August 23, 2024 9:29am Viral URI with cough acute August 23, 2024 9:29am Bradycardia acute November 10:21am Essential (primary) hypertension acute November 14 10:21am Hypertension acute November 10:21am Type 2 diabetes mellitus wit h hyperglycemia acute November 14 10:21am Plan of Treatment Author Desi David [facility] Authored August 23, 2024 1:52 pm Continue present treatment p rusty. Symptoms are improving. Call if symptoms worsen or continue. A1C 9.6 in office which is worsened- will add ozempic to regular meds. Followup in 2-3 months. Take medication as prescribed, keep follow up appointments, get any testing that's been ordered done in a timely fashion. Do not smoke. Call if any questions or problems.For Diabetes: Patient is advised to work on healthy diet choices and appropriate servings, weight control, regular exercise as directed, and reduce fat intake. Check home blood sugars as directed. Check feet regularly to be sure no sores or numbness are developing. Call if low sugar reactions occur, and be aware that lower sugars may happen with increased exercise. Future Tests Future scheduled test information is unavailable Pending Tests Test Name Ordered Date Scheduled Date Comprehensive Metabolic Panel November 14 10:41am 3 Weeks Future Visits Future appointment information is unavailable Referrals to Other Providers Referral information is unavailable Future Procedures Procedure Name Ordered Date Scheduled Date A1C with Estimated Average Glu November 14 10:41am 3 Weeks Complete Blood Count Auto Diff November 14 10:41am 3 Weeks Lipid Panel November 14, 2024 10:41am 3 We eks MicroAlb Creat Ratio,U November 14, 2024 10:41 am 3 Weeks Thyroid Stim Hormone w/Rflx November 14, 2024 10:44am Future Medications Future medication information is unavailable Patient Instructions Patient instructions are unavailable
--- OUTSIDE RECORDS SUMMARY | 2024-11-28 09:06 | XMS_ITS | Patient Health Record ---
Author Organization [facility] [place] Address [address] [place] [address] Care Team Providers Care Ceramics Technician Name Role Phone None, Unknown or Primary Care Provider Unavailab le Allergies No Known Allergies Results Component Value Reference Range Notes BNP Reviewed date:05/17/2024 09:28:18 PM Interpretation: Performing Lab: Notes/Report: Comment ER blood preferred [facility] , NT Pro B Type Natriuretic Pept 324.0 <=900.0 pg /mL Performing Lab: see note ML - [facility] LB Troponin I High Sensitivity Reviewed date:05/17/2024 09:28:18 PM Interpretation: Performing Lab: Notes/Report: Comment ER blood preferred [facility] , Troponin I High Sensitivity 11.4 4.0-76.1 pg/m L CUT-OFF POINTS HAVE BEEN ESTABLISHED BASED ON THE FOURTH UNIVERSAL DEFINITION OF MYOCARDIAL INFARCTION. THE UPPER REFERENCE LIMIT (URL) OF TROPONIN, DEFINED THE 99TH PERCENTILE OF cTnI DISTRIBUTION IN A REFERENCE POPULATION, HAS BEEN CONFIRMED THE DECISION THRESHOLD FOR MA DIAGNOSIS. 99TH PERCENTILE = 76.2 PG/ML NOTE: HIGH-SENSITIVITY TROPONIN ASSAY IS NOT INTENDED TO BE USED IN ISOLATION BUT SHOULD BE INTERPRETED IN CONJUNCTION WITH OTHER DIAGNOSTIC AND CLINICAL INFORMATION. Performing Lab: see note ML - [facility] LB Reason For Referral No Information Medications Medication SIG (Take, Route, Frequency, Duration) Notes Start Date End Date Status metFORMIN HCl 1000 MG 1 tablet with a me al Orally Once a day Active Acetaminophen-Codeine 300-30 MG 1 tablet as needed Orally every 6 hrs Active Metoprolol Succinate 25 MG 1 capsule Ora lly Once a day Active Atorvastatin Calcium 20 MG 1 tablet Oral ly Once a day Active Omeprazole 20 MG 1 capsule 30 minutes before morning meal Orally Once a day Active Acetaminophen 500 MG 1 capsule as needed Orally every 6 hrs Active Benztropine Mesylate 1 MG 1 tablet Orall y Once a day Active Vitamin D 50 MCG (1999) 1 tablet Oral ly Once a day Active Brexpiprazole 4 MG 1 tablet Orally Once a day Active Wellbutrin XL 300 MG 1 tablet in the mor carl Orally Once a day Active Colace 100 MG 1 capsule as needed Orally Once a day Active Zofran ODT Active glipiZIDE 5 MG 1 tablet 30 minutes before breakfast Orally Once a day Active Zoloft 100 MG 1 tablet Orally BID Active Ibuprofen 800 MG 1 tablet with food o r milk as needed Orally every 8 hrs Active Insulin Lispro 100 UNIT/ML as directed Injection Active Januvia 50 MG as directed Orally Active Lantus 100 UNIT/ML as directed Subcutaneous Active Social History Tobacco Use: Social History Observation Description Date Details (start date - stop date) Current Smoker NA - NA Tobacco Use/Smoking Question Answer Notes Patient is a current smoker Problems Problem Type SNOMED Code ICD Code Onset Dates Problem Status W/U Status Risk Notes Problem Type II diabetes mellitus without complication (563179467) Type 2 diabetes mellitus without complications (E11.9) Active confirmed Problem Long-term current us e of insulin (550164507) 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) Active confirmed Problem Hypercholesterolemia (36391268) Hypercholesterolemia (E78.00) Active confirmed Problem Lactic acidosis due to diabetes mellitus (930884282) Lactic acidosis due to diabetes mellitus (E11.10) Active confirmed Plan Of Treatment No Information Insurance Providers Payer Name Payer Address Payer Phone Subscriber Number Group Number Insured Name Patient Relationship to Insured Coverage Start Date Coverage End Date [employer]V PRIMARY MEDICARE [address] [place] [address] [id number] Saurabh Prasad Self - patient is the insured Medical (General) History Medical History History ICD Code Enterovirus infection B34.1 Mild intermittent asthma in adult withou t complication J45.20 Left lower lobe pneumonia 486 Obstructive sleep apnea (adult) (pediatr ic) G47.33 Obesity 278.00 Displacement of cervical intervertebral disc without myelopathy 722.0 Pancreatitis, acute 577.0 Abdominal pain 789.00 Anxiety disorder, unspecified F41.9 Depression F32.9 Type 2 diabetes mellitus without complic ation 250.00 GERD (gastroesophageal reflux disease) K 21.9 Arthropathy, unspecified M12.9 Seasonal allergies 477.9 Other chronic pain G89.29 Type 2 diabetes mellitus with hyperglyce ciro E11.65 Surgical History Surgery Date(Month/Year) Heart Sx 2019 Left hand Finger 2014 Pilonidal cysts Hospitalization History Reason Date(Month/Year) see above
--- OUTSIDE RECORDS SUMMARY | 2024-11-28 09:06 | XMS_ITS | Clinical Summary ---
Author Organization [employer] [facility] Address [id number] [address] [place] [address] Care Team Providers Care Past Due Accounts Clerk Name Role Phone ManuelAlondra dye INSPECTOR RAG SORTING-AMERICANIZATION TEACHER Primary Care Provider + Allergies No known active allergies Medications amLODIPine (NORVASC) 10 mg tablet Take 1 tablet by mouth daily. 07/05/2018 Active metFORMIN (GLUCOPHAGE) 500 mg tablet Take 1 tablet by mouth 2 (two) times a day as needed. 07/04/2018 Active Active Problems Problem Noted Date Diagnosed Date Delirium 12/14/2019 Spinal stenosis of lumbar region 04/05/2019 Lumbar neuritis 04/05/2019 Disorder of sacrum 01/25/2019 Lumbosacral spondylosis without myelopathy 08/15 Family History Medical History Relation Name Comments Cancer Father Prostate No Known Problems Mother Relation Name Status Comments Father Mother Social History Tobacco Use Types Packs/Day Years Used Date Smoking Tobacco: Former Smokeless Tobacco: Never Alcohol Use Standard Drinks/Week Comments Not Currently 0 (1 standard drink = 0.6 oz pur e alcohol) Childcare Answer Date Recorded Childcare Unknown 08/15/2018 Employment Answer Date Recorded Employment Unknown 08/15/2018 Purpose - Life Answer Date Recorded Purpose and direction in life Unknown Sex and Gender Information Value Date Recorded Sex Assigned at Not on file Legal Sex Male 12:12 PM EDT Gender Identity Not on file Sexual Orientation Not on file Last Filed Vital Signs Vital Sign Reading Time Taken Comments Blood Pressure 101/69 12/15/2019 8:08 AM EDT Pulse 84 12/15/2019 8:08 AM EDT Temperature 36.6 C (97.8 F) 12/15/2019 8:08 AM EDT Respiratory Rate 18 12/15/2019 8:08 AM EDT Oxygen Saturation 99% 12/15/2019 8:08 AM EDT Inhaled Oxygen Concentration - - Weight 147 kg (324 lb 1.2 oz) 12/14/2019 4:00 PM EDT Height 182.9 cm (6') 12/14/2019 4:00 PM EDT Body Mass Index 43.95 12/14/2019 4:00 PM EDT Plan of Treatment Health Maintenance Due Date Last Done Comments Depression Screening 1961 Tobacco Screening 1962 DTaP,Tdap and Td Vaccines (1 - Tdap) 1968 Zoster (Shingles) Vaccine (1 of 2) 09/29/1999 Abdominal Aortic Aneurysm (AAA) Screen 2014 Fall Risk Screening 2014 Influenza Vaccine 11/13/2024 Medical Devices Implanted Type Area Evaluation Specialist Device Identifier Shelf Expiration Date Model / Serial / Lot Orthopedic Implant Orthopedic Implant Right: Ankle Description:pins Insurance [employer] MEDICARE Advance Directives * Full Code (Latest Code Status on File) Date Activated Date Inactivated Comments 12/15/2019 8:20 AM 12/15/2019 5:56 PM Care Teams Past Due Accounts Clerk Relationship Specialty Start Date End Date Alondra Garcia, CAPRICE-AMERICANIZATION TEACHER [address] [place], [place] [address] [address] PCP - General Family Medicine 12/14/19
--- OUTSIDE RECORDS SUMMARY | 2024-11-28 09:17 | XMS_ITS | CCD ---
Author Organization [facility] Care Team Providers Care Data Visualization Developer Name Role Phone SELF, REFERRED Referring Unavailable DESI BARTH Primary Care Unavailable UNKNOWN, PROVIDER Admitting Unavailable UNKNOWN, PROVIDER Attending Unavailable Ayden Tanner II Unavailable MD Desi Barth Primary Care Provider MD Ayden Tanner II Attending Provider [phone] MANUEL, DR BALLESTEROS Admitting Unavailable MOUKANIKOLAY, DR BALLESTEROS Attending Unavailable LARY, DESI E Primary Care Unavailable DESI BARTH Consulting Unavailable LARY, DESI E Primary Care Unavailable TIN ROUSSEAU Admitting Unavailable TIN ROUSSEAU Attending Unavailable MARCELINA, DR ALEIDA Barajas Consulting Unavailable TIN ROUSSEAU Consulting Unavailable BAILEY GLASS Consulting Unavailable Aleksandra Mar Consulting Unavailable MOUKANIKOLAY, DR BALLESTEROS Admitting Unavailable MOUKARBEL, DR BALLESTEROS Attending Unavailable LARY, DESI E Primary Care Unavailable YEARLUX HAGER Admitting Unavailable YEARLUX HAGER Attending Unavailable LARY, DESI E Primary Care Unavailable MOUKARBEL, DR BALLESTEROS Admitting Unavailable MOUKARBEL, DR BALLSETEROS Attending Unavailable LARY, DESI E Primary Care Unavailable MOUKARBEL, DR BALLESTEROS Consulting Unavailable LARY, DESI E Admitting Unavailable BARTHDESI E Attending Unavailable BARTH, DESI E Primary Care Unavailable ZIOUSMANE, DR JANE Barajas Consulting Unavailable DESI BARTH Consulting Unavailable YEARTY, LUX Admitting Unavailable YEARTY, LUX Attending Unavailable LARY, DESI E Primary Care Unavailable YEARTY, LUX Consulting Unavailable Lary Desi Unavailable Desi Barth Primary Care Unavailable Trini Medina Attending Unavailable Trini Medina Admitting Unavailable Desi Barth MD Primary Care Provider [phone] Trini Medina DO Attending Provider ITZ DAVIES Attending Unavailable Desi Barth MD Primary Care Provider [phone] JASON DUMONT Attending Unavailable JASON DUMONT Referring Unavailable Desi Barth MD Primary Care Provider Desi Barth MD Attending Provider [phone] Allergies Allergy Classification Reported Allergen(s) Allergy Type Date of Onset Reaction(s) Facility (3 sources) atorvastatin Drug Allergy Comment:Myalgi as [employer] Other (3 sources) Allergies Reconciled Propensity to adverse reactions Unknown [employer] Other (1 source) atorvastatin Drug Allergy 04-20-19 [facility] Repository Medications Current Medications Medication Drug Class(es) Dates Sig (Normalized) Sig (Original) Acetaminophen / oxyCODONE (3 sources) Opioid Agonist Start: 11-27-2021 take 1 tablet by mouth three times daily as needed Endocet 10-325mg Endocet 10-325mg, 1 (one) tablet three times daily, as needed # 20, 11/27/2021, No Refill. Active oral three times daily, as needed for 7 *Pick strength-form from [employer] for eRX* 15 Nov, 2021 Active amLODIPine 10 mg oral tablet (14 sources) Dihydropyridine Calcium Channel Latrice Start: 07-07-2023 End: 04-17-2025 take 1 tablet by mouth once daily Amlodipine 10 mg tablet Active 1 TAB PO Daily July 07, 2023 12:00am Free[employer] tablet Orally Once a day; Note: Source Status: Taking; Provider: Ciro Hensley II ( ) Complies with drug therapy take 1 tablet by mouth once roshni y amLODIPine Besylate 10 MG 1 tablet Orally Once a day Active aspirin 81 mg chewable tablet (17 sources) Platelet Aggregation Inhibitor, Nonsteroidal Anti-inflammatory Drug Start: 07-07-2023 take 1 tablet by mouth once daily Aspirin 81 mg tablet,chewable Active 1 TAB PO Daily July 07, 2023 12:00am Free[employer] tablet Orally Once a day; Note: Source Status: Taking; Provider: Ciro Hensley II ( ) Complies with drug therapy Start: 11-27-2021 EQ Aspirin Dion lt Low Dose 81MG EQ Aspirin Adult Low Dose( 81MG Oral daily ) Active -Hx Entry Oral daily for 0 *Pick strength-form from [employer] for eRX* Nov, Active take 1 tablet by polina th every twenty-four hours aspirin 81 MG EC tablet aspirin 81 mg tablet,delayed release TAKE 1 TABLET BY MOUTH EVERY 24 HOURS Active take 1 tablet by polina th once daily Aspirin 81 81 MG 1 tablet Orally Once a day Active Blood-Glucose Meter (Onetouch Ultra2 Meter) misc (1 source) Start: 10-09-2024 Blood-Glucose Meter (Onetouch Ultra2 Meter) misc Active 0 .Route October 09, 2024 12:00am to test blood sugar twice daily clopidogrel 75 mg oral tablet (12 sources) P2Y12 Platelet Inhibitor Start: 07-07-2023 take 1 tablet by mouth once daily Clopidogrel 75 mg tablet Active 75 MG PO Daily July 07, 2023 12:00am FreeTextSi tablet Orally Once a day; Note: Source Status: Taking; Provider: Ciro Hensley II ( ) Complies with drug therapy take 1 tablet by polina th every twenty-four hours Clopidogrel Bisulfate 75 MG 1 tablet Orally Once a day Active Diabetic shoe (5 sources) Start: 02-18-2024 Diabetic shoe Active 0 .ROUTE .COMPLEX February 18, 2024 1:00am 1 pair; Complies with drug therapy Start: 02-18-2024 Diabetic shoe Active 0 .ROUTE .COMPLEX February 18, 2024 1:00am 1 pair; Start: 02-18-2024 Diabetic shoe Active 0 .ROUTE .COMPLEX February 18, 2024 12:00am 1 pair; furosemide 20 mg oral tablet (5 sources) Loop Diuretic Start: 05-13-2021 take 1 tablet by mouth once daily Furosemide 20MG Furosemide 20MG, 1 (one) Tablet daily # 30, 05/13/2021, Ref. x2. Active Oral daily for 30 *Pick strength-form from [employer] for eRX* May, Active furosemide (Lasi x) 8 MG/ML solution Take by mouth Daily Active hydroCHLOROthiazide 25 mg / losartan potassium 100 mg oral tablet (19 sources) Thiazide Diuretic, Angiotensin 2 Receptor Latrice Start: 07-06-2023 End: 07-06-2023 take 1 tablet by mouth once daily Losartan-Hydrochlorothiazide 100-25 mg tablet Active 1 TAB PO Daily July 06, 2023 9:37am Complies with drug therapy Losartan Rdassi um-HCTZ 100-25 MG Take 1 tablet by mouth once daily for 90 days for 90 Active hydrocortisone 10 mg/ml / neomycin 3.5 mg/ml / polymyxin b [id number] unt/ml otic suspension (1 source) Aminoglycoside Antibacterial, Polymyxin-class Antibacterial, Corticosteroid Start: 11-14-2024 Kwmcybid-Kssyfpxdq-Cg 3.5-10,000-1 mg/mL-unit/mL-% drops,suspension Active 4 DROPS OTIC Three times daily November 14, 2024 12:00am Complies with drug therapy 24 hr isosorbide mononitrate 30 mg extended release oral tablet (12 sources) Nitrate Vasodilator Start: 07-07-2023 take 1 tablet by mouth once daily in the morning Isosorbide Mononitrate 30 mg tablet extended release 24 hr Active 1 TAB PO Daily July 07, 2023 12:00am FreeTextSi tablet in the morning Orally Once a day; Note: Source Status: Taking; Provider: Ciro Hensley II ( ) Complies with drug therapy take 1 tablet by polina th every twenty-four hours Isosorbide Mononitrate ER 30 MG 1 tablet in the morning Orally Once a day Active Losartan Potassium-HCTZ 100-25MG (3 sources) Start: 04-04-2021 Losartan Potassium-HCTZ 100-25MG Losartan Potassium-HCTZ 100-25MG, 1 (one) Tablet daily # 90, 04/04/2021, Ref. x3. Active Oral daily for 90 *Pick strength-form from [employer] for eRX* Mar, Active meloxicam 7.5 mg oral tablet (5 sources) Nonsteroidal Anti-inflammatory Drug Start: 04-20-2024 take 1 tablet by mouth once daily Meloxicam 7.5 mg tablet Active 7.5 MG PO Daily April 20, 2024 1:00am Complies with drug therapy metoprolol tartrate 50 mg oral tablet (20 sources) beta-Adrenergic Latrice Start: 07-07-2023 End: 07-08-2023 take 1 tablet by mouth twice daily at mealtime Metoprolol Tartrate 50 mg tablet Active 50 MG PO Twice daily July 08, 2023 10:27am FreeTextSi tablet with food Orally Twice a day; Note: Source Status: Taking; Provider: Ciro Hensley II ( ) Complies with drug therapy take 1 tablet by polina th every twelve hours Metoprolol Tartrate 50 MG 1 tablet with food Orally Twice a day Active rosuvastatin calcium 20 mg oral tablet (14 sources) HMG-CoA Reductase Inhibitor Start: 07-07-2023 take 1 tablet by mouth once daily Rosuvastatin 20 mg tablet Active 20 MG PO Daily July 07, 2023 12:00am FreeTextSi tablet Orally Once a day; Note: Source Status: Taking; Provider: Ciro Hensley II ( ) Complies with drug therapy take 1 tablet by polina th every twenty-four hours Rosuvastatin Calcium 20 MG 1 tablet Oral ly Once a day Active Semaglutide (2 sources) Start: 10-16-2024 Semaglutide (O zempic) 0.25 mg or 0.5 mg (2 mg/3 mL) pen injector Active 0.5 MG SUBCUT every week October 16, 2024 12:51pm for 4 weeks Complies with drug therapy Start: 08-23-2024 End: 10-16-2024 Semaglutide (Ozempic) 0.25 m g or 0.5 mg (2 mg/3 mL) pen injector Discontinued 0.25 MG SUBCUT every week August 23, 2024 12:00am October 16, 2024 12:51pm for 4 weeks Completed/Discontinued Medications Medication Drug Class(es) Dates Sig (Normalized) Sig (Original) cephalexin 500 mg oral capsule (5 sources) Cephalosporin Antibacterial Start: 04-20-2024 End: 05-22-2024 take 1 capsule by mouth three times daily Cephalexin 500 mg capsule Discontinued 500 MG PO Three times daily 02 10April 20, 2024 1:00am May 22, 2024 2:28pm glipiZIDE er 10 mg 24 hr extended release oral tablet (20 sources) Sulfonylurea Start: 07-26-2023 End: 10-10-2024 take 1 tablet by mouth once daily Glipizide 10 mg tablet extended release 24hr Discontinued 0 .ROUTE .COMPLEX 90 October 18, 2023 9:40am October 21, 2023 9:52am Take 1 tablet by mouth once daily Start: 07-07-2023 End: 07-26-2023 take 1 tablet by mouth once daily Glipizide 10 mg tablet extended release 24hr Discontinued 10 MG PO Daily July 07, [...] oral daily for 0 *Pick strength-form from [employer] for eRX* Jan, Active hydroCHLOROthiazide 12.5 mg oral tablet (12 sources) Thiazide Diuretic Start: 04-10-2020 End: 07-06-2023 take 1 tablet by mouth once daily Hydrochlorothiazide 12.5 mg tablet Discontinued 12.5 MG PO Daily April 10, 2020 1:00am July 06, 2023 9:09am losartan potassium 100 mg oral tablet (12 sources) Angiotensin 2 Receptor Latrice Start: 07-07-2023 End: 07-08-2023 take 1 tablet by mouth once daily Losartan 100 mg tablet Discontinued 100 MG PO Daily July 07, 2023 12:00am July 08, 2023 10:27am FreeTextSi tablet Orally Once a day; Note: Source Status: Taking; Provider: Ciro Hensley II ( ) take 1 tablet by polina th every twenty-four hours Losartan Potassium 100 MG 1 tablet Orally Once a day Active metFORMIN hydrochloride 1000 mg oral tablet (20 sources) Biguanide Start: 10-11-2023 End: 10-10-2024 take 1 tablet by mouth twice daily at mealtime Metformin 1,000 mg tablet Discontinued 0 .ROUTE .COMPLEX 180 October 09, 2024 3:24pm October 10, 2024 3:19pm TAKE 1 TABLET [...] 10, 2020 1:00am July 06, 2023 9:09am take 1 tablet by polina th at mealtime, then take 1 tablet by mouth every twenty-four hours metFORMIN, OSM, (Fortamet) 500 MG 24 hr tablet Take 500 mg by mouth in the evening. Take with meals Do not crush, chew, or split. 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; Translations: [ASHD RAMAH NAVAJO CHAPTER CA W/O ANGINA PECTORIS] Onset: 09-01-2021 Chronic Diabetes mellitus with complications (20 sources) Type 2 diabetes mellitus with other specified complication; Translations: [Type 2 diabetes mellitus with other circulatory complications] Onset: 04-30-2022 Chronic Diabetes mellitus without complication (1 source) Type 2 diabetes mellitus without complications; Translations: [TYPE 2 DM WITHOUT COMPLICATIONS] Onset: 11-26-2021 Chronic Disorders of lipid metabolism (1 source) Hyperlipidemia, unspecified; Translations: [HYPERLIPIDEMIA UNSPECIFIED] Onset: 05-05-2022 Chronic Essential hypertension (20 sources) Essential (primary) hypertension; Translations: [Essential hypertension] Onset: 11-26-2021 07-08-2023 Chronic Comment on above: Problem List clean-u p per request of Phys. EHR Cmte Genitourinary symptoms and ill-defined conditions (2 sources) Dysuria; Translations: [Dysuria] 06-02-2024 Episodic Hyperplasia of prostate (3 sources) Large prostate ; Translations: [Benign prostatic hyperplasia without lower urinary tract symptoms] Chronic Hypertension with complications and secondary hypertension (1 source) Hypertension secondary to endocrine disorders; Translations: [HYPERTENSION SECOND ENDOCRINE D/O] Onset: 05-05-2022 Chronic Mycoses (2 sources) Pain in toe; Translations: [Tinea unguium] 06-08-2024 Episodic Nausea and vomiting (4 sources) Nausea; Translations: [Nausea] Episodic Nonspecific chest pain (3 sources) Precordial pain; Translations: [Precordial pain] Episodic Other circulatory disease (3 sources) Elevated blood-pressure reading without diagnosis of hypertension; Translations: [Elevated blood-pressure reading, without diagnosis of hypertension] Episodic Other connective tissue disease (2 sources) Pain in right foot; Translations: [Pain in right foot] 06-08-2024 Episodic Other diseases of veins and lymphatics (2 sources) Vascular insufficiency; Translations: [Venous insufficiency (chronic) (peripheral)] 06-08-2024 Episodic Other injuries and conditions due to external causes (3 sources) History of fall; Translations: [History of falling] Episodic Other non-traumatic joint disorders (3 sources) Arthralgia of the pelvic region and thigh; Translations: [Pain in left hip] Episodic Other non-traumatic joint disorders (5 sources) Acute ankle pain; Translations: [Pain in left ankle and joints of left foot] 04-20-2024 Episodic Other non-traumatic joint disorders (3 sources) Pain in left ankle and joints of [...] conditions (not mental disorders or infectious disease) (17 sources) CT of abdomen abnormal; Translations: [Abnormal findings on diagnostic imaging of other abdominal regions, including retroperitoneum] 07-08-2023 Episodic Other upper respiratory infections (2 sources) Viral upper respiratory tract infection; Translations: [Acute upper respiratory infection, unspecified] 08-23-2024 Episodic Residual codes; unclassified (3 sources) Immunization refused ; Translations: [Immunization not carried out because of patient refusal] Episodic Residual codes; unclassified (5 sources) Foreign body 08-18-2023 Episodic Unclassified (3 sources) LOW BACK PAIN, UNSPECIFIED; Translations: [LOW BACK PAIN, UNSPECIFIED] Onset: 11-26-2021 Unclassified (2 sources) Foreign body; Translations: [Foreign body] 08-18-2023 Urinary tract infections (2 sources) Urinary tract infectious disease; Translations: [Urinary tract infection, site not specified] 05-22-2024 Episodic Past or Other Problems Problem Classification Problem Date Documented Da te Episodic/Chronic Calculus of urinary tract (1 source) Calculus of kidney; Translations: [CALCULUS OF KIDNEY] Onset: 11-26-2021 Episodic Coronary atherosclerosis and other heart disease (4 sources) Presence of coronary angioplasty implant and graft; Translations: [PRESENCE COR 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] Onset: 05-15-2021 Episodic Other aftercare (1 source) terminologist (current) use of aspirin; Translations: [LONGTERM CURRENT USE OF ASPIRIN] Onset: 11-26-2021 Episodic Other aftercare (1 source) terminologist (current) use of oral hypoglycemic drugs; Translations: [LONGTERM USE ORAL HYPOGLYCEMIC DX] Onset: 11-26-2021 Episodic Other aftercare (1 source) Other terminologist (current) drug therapy; Translations: [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] Onset: 11-26-2021 Episodic Other [...] Test Name Value Interpretation Reference Range Facility HbA1c HPLC (Bld) [Mass fract ion]on 08-23-2024 HbA1c (Bld) [Mass fraction] 9.6 % [facility] XR Ankle - right 3 Viewson 0 06-08-2024 Imaging Result: Notable 2 screw fixation to the medial malleolar region with negative fractures identified degenerative changes to the tibiotalar joint and subtalar joint noted with pes planovalgus type foot [facility] Study observation (narrative) [facility] - Chemistry and C hemistry - challengeon 06-02-2024 Bilirubin Ql (U) Negative NEGATIVE [facility] Glucose (U) [Mass/Vol] Negative NEGATIVE [facility] Ketones Ql (U) Negative NEGATIVE [facility] pH (U) 7.0 [pH] 5.0-9.0 [facility] Specific gravity (U) [Rel density] 1.020 1.005-1.025 [facility] Urobilinogen Qn (U) 1.0 {Makenna'U}/dL 0.2-1.0 [facility] Laboratory - Specimen inform ationon 06-02-2024 Appearance (U) CLEAR CLEAR [facility] Color (U) LT. YELLOW YELLOW [facility] Laboratory - Urinalysison Leukocyte esterase Test strip Ql (U) Negative NEGATIVE [facility] Nitrite Ql (U) Negative NEGATIVE [facility] Protein Ql (U) Negative NEG/TRACE [facility] No Panel Informationon 06-02 Urine Occult Blood Negative NEGATIVE [facility] Basophils Auto (Bld) [#/Vol] on 05-17-2024 Basophils (Bld) [#/Vol] Automated basophil count 0.0-0.1 [facility] Basophils/100 WBC Auto (Bld) on 05-17-2024 Basophils/100 WBC (Bld) Automated basophil % 0.2-2.0 [facility] Eosinophils/100 WBC Auto (Bl d)on 05-17-2024 Eosinophils/100 WBC (Bld) Automated eosinophil % Low 0.9-7.0 [facility] Erythrocyte distribution wid th Auto (RBC) [Ratio]on 05-17-2024 Erythrocyte distribution width (RBC) [Ratio] Erythrocyte distribution width [Ratio] by Automated count 11.0-15.0 [facility] Estimated glomerular filtrat ion rate (GFR) non- Americanon 05-17-2024 GFR/1.73 sq M.predicted among non-blacks MDRD (S/P/Bld) [Vol rate/Area] Estimated glomerular filtration rate (GFR) non- >=60 mL/min/1.73m 2 [facility] Hematocrit Auto (Bld) [Volum e fraction]on 05-17-2024 Hematocrit (Bld) [Volume fraction] Hematocrit [Volume Fraction] of Blood by Automated count Low 42.0-54.0 [facility] Hemoglobin [Mass/volume] in Bloodon 05-17-2024 Hemoglobin (Bld) [Mass/Vol] Hemoglobin [Mass/volume] in Blood Low 14.0-18.0 [facility] Laboratory - Chemistry and C hemistry - challengeon 05-17-2024 Calcium [Mass/Vol] 8.5 mg/dL 8.5-10.1 [facility] Chloride [Moles/Vol] 99 mmol/L 98-107 [facility] CO2 [Moles/Vol] 25.8 mmol/L 21.0-32.0 [facility] Creatinine [Mass/Vol] 0.87 mg/dL 0.70-1.30 [facility] GFR/1.73 sq M.predicted MDRD (S/P/Bld) [Vol rate/Area] mL/min/{1.73_m2} >=60 mL/min/1.73m 2 [facility] Glucose [Mass/Vol] 151 mg/dL High 74-106 [facility] Potassium [Moles/Vol] 3.8 mmol/L 3.5-5.1 [facility] Sodium [Moles/Vol] 136 mmol/L 136-145 [facility] Urea nitrogen [Mass/Vol] 9.0 mg/dL 7.0-18.0 [facility] Urea nitrogen/Creatinine [Mass ratio] 10.3 mg/mg [facility] Laboratory - Hematology and Cell countson 05-17-2024 Immature granulocytes/100 WBC (Bld) 0.5 % 0.0-0.5 [facility] Leukocytes [#/volume] correc aarti for nucleated erythrocytes in Blood by Automated counon 05-17-2024 WBC corrected for nucl RBC Auto (Bld) [#/Vol] Leukocytes [#/volume] corrected for nucleated erythrocytes in Blood by Automated coun High 4.0-11.0 [facility] Lymphocytes Auto (Bld) [#/Vo l]on 05-17-2024 Lymphocytes (Bld) [#/Vol] Lymphocytes [#/volume] in Blood by Automated count 1.2-3.8 [facility] Lymphocytes/100 WBC Auto (Bl d)on 05-17-2024 Lymphocytes/100 WBC (Bld) Lymphocytes/100 leukocytes in Blood by Automated count Low 20.5-60.0 [facility] MCH Auto (RBC) [Entitic mass ]on 05-17-2024 MCH (RBC) [Entitic mass] MCH [Entitic mass] by Automated count 25.9-34.0 [facility] MCHC Auto (RBC) [Mass/Vol]on 05-17-2024 MCHC (RBC) [Mass/Vol] MCHC [Mass/volume] by Automated count 29.9-35.2 [facility] MCV Auto (RBC) [Entitic vol] on 05-17-2024 MCV (RBC) [Entitic vol] MCV [Entitic volume] by Automated count 80.0-94.0 [facility] Monocytes Auto (Bld) [#/Vol] on 05-17-2024 Monocytes (Bld) [#/Vol] Automated blood monocyte count High 0.3-0.8 [facility] Monocytes/100 WBC Auto (Bld) on 05-17-2024 Monocytes/100 WBC (Bld) Automated monocyte % 1.7-12.0 [facility] Neutrophils Auto (Bld) [#/Vo l]on 05-17-2024 Neutrophils (Bld) [#/Vol] Neutrophils [#/volume] in Blood by Automated count High 1.4-6.5 [facility] Neutrophils/100 WBC Auto (Bl d)on 05-17-2024 Neutrophils/100 WBC (Bld) Automated neutrophil % High 43.0-75.0 [facility] No Panel Informationon 05-17 Eosinophils # (Auto) 0.0 10 3/uL 0.0-0.7 [facility] Immature Granulocyte # (Auto) 0.08 10 3/uL High 0.00-0.03 [facility] Platelet mean volume Auto (B ld) [Entitic vol]on 05-17-2024 Platelet mean volume (Bld) [Entitic vol] Platelet mean volume [Entitic volume] in Blood by Automated count 9.5-13.5 [facility] Platelets Auto (Bld) [#/Vol] on 05-17-2024 Platelets (Bld) [#/Vol] Platelets [#/volume] in Blood by Automated count 150-450 [facility] RBC Auto (Bld) [#/Vol]on RBC (Bld) [#/Vol] Erythrocytes [#/volume] in Blood by Automated count Low 4.70-6.10 [facility] Serum or plasma anion gap de terminationon 05-17-2024 Anion gap [Moles/Vol] Serum or plasma an ion gap determination [facility] Basophils/100 WBC Manual cnt (Bld)on 05-16-2024 Basophils/100 WBC (Bld) Basophils/100 leukocytes in Blood by Manual count Low 0.2-2.0 [facility] Blood toxic granulation dete ction by light microscopyon 05-16-2024 Toxic granules LM Ql (Bld) Blood toxic granulation detection by light microscopy [facility] Eosinophils/100 WBC Manual c nt (Bld)on 05-16-2024 Eosinophils/100 WBC (Bld) Eosinophils/100 leukocytes in Blood by Manual count Low 0.9-7.0 [facility] Erythrocyte distribution wid th Auto (RBC) [Ratio]on 05-16-2024 Erythrocyte distribution width (RBC) [Ratio] Erythrocyte distribution width [Ratio] by Automated count 11.0-15.0 [facility] Estimated glomerular filtrat ion rate (GFR) non- Americanon 05-16-2024 GFR/1.73 sq M.predicted among non-blacks MDRD (S/P/Bld) [Vol rate/Area] Estimated glomerular filtration rate (GFR) non- >=60 mL/min/1.73m 2 [facility] Globulin Calc (S) [Mass/Vol] on 05-16-2024 Globulin (S) [Mass/Vol] Serum globulin measurement by calculation (mass/volume) [facility] Hematocrit Auto (Bld) [Volum e fraction]on 05-16-2024 Hematocrit (Bld) [Volume fraction] Hematocrit [Volume Fraction] of Blood by Automated count Low 42.0-54.0 [facility] Hemoglobin [Mass/volume] in Bloodon 05-16-2024 Hemoglobin (Bld) [Mass/Vol] Hemoglobin [Mass/volume] in Blood Low 14.0-18.0 [facility] Laboratory - Chemistry and C hemistry - challengeon 05-16-2024 Lactate [Moles/Vol] 2.1 mmol/L High 0.4-2.0 [facility] Comment on above: RESULTS CALLED TO IMELDA HUBBARD RN @BY Bridget Simpson at 2347 Albumin [Mass/Vol] 3.2 g/dL Low 3.4-5.0 [facility] ALP [Catalytic activity/Vol] 90 U/L 46-116 [facility] ALT [Catalytic activity/Vol] 23 U/L 16-63 [facility] AST [Catalytic activity/Vol] 24 U/L 15-37 [facility] Bilirubin [Mass/Vol] 0.8 mg/dL 0.2-1.0 [facility] Calcium [Mass/Vol] 8.8 mg/dL 8.5-10.1 [facility] Chloride [Moles/Vol] 99 mmol/L 98-107 [facility] CO2 [Moles/Vol] 23.2 mmol/L 21.0-32.0 [facility] Creatinine [Mass/Vol] 1.00 mg/dL 0.70-1.30 [facility] GFR/1.73 sq M.predicted MDRD (S/P/Bld) [Vol rate/Area] mL/min/{1.73_m2} >=60 mL/min/1.73m 2 [facility] Glucose [Mass/Vol] 230 mg/dL High 74-106 [facility] Natriuretic peptide B (Bld) [Mass/Vol] 324.0 pg/mL <=900.0 [facility] Potassium [Moles/Vol] 4.1 mmol/L 3.5-5.1 [facility] Protein [Mass/Vol] 7.2 g/dL 6.4-8.2 [facility] Sodium [Moles/Vol] 134 mmol/L Low 136-145 [facility] Urea nitrogen [Mass/Vol] 10.0 mg/dL 7.0-18.0 [facility] Urea nitrogen/Creatinine [Mass ratio] 10.0 mg/mg [facility] Laboratory - Hematology and Cell countson 05-16-2024 Lymphocytes/100 WBC (Bld) 3.0 % Low 20.5-60.0 [facility] Monocytes/100 WBC (Bld) 8.0 % 1.7-12.0 [facility] Laboratory - Microbiology an d Antimicrobial susceptibilityon 05-16-2024 SARS-CoV-2 (COVID-19) RNA DAYSI+probe Ql (Unsp spec) Negative NEGATIVE [facility] Comment on above: This test has not be en FDA cleared or approved, but has beenauthorized by the FDA under an Emergency Use Authorization(EUA) for use by authorized laboratories certified underIA that meet the requirements to perform moderate or highcomplexity testing. This test has been authorized only forthe detection of proteins from SARS-CoV-2, not for any otherviruses or pathogens. The emergency use of this test isauthorized for the duration of the declaration thatcircumstances exist justifying the authorization ofemergency use of in vitro diagnostic tests for detectionand/or diagnosis of Covid-19 under section 564(b)(1) of theAct, 21 U.S.C. 360bbb-3(b)(1), unless the declaration isterminated or authorization is revoked sooner. Leukocytes [#/volume] correc aarti for nucleated erythrocytes in Blood by Automated counon 05-16-2024 WBC corrected for nucl RBC Auto (Bld) [#/Vol] Leukocytes [#/volume] corrected for nucleated erythrocytes in Blood by Automated coun High 4.0-11.0 [facility] MCH Auto (RBC) [Entitic mass ]on 05-16-2024 MCH (RBC) [Entitic mass] MCH [Entitic mass] by Automated count 25.9-34.0 [facility] MCHC Auto (RBC) [Mass/Vol]on 05-16-2024 MCHC (RBC) [Mass/Vol] MCHC [Mass/volume] by Automated count 29.9-35.2 [facility] MCV Auto (RBC) [Entitic vol] on 05-16-2024 MCV (RBC) [Entitic vol] MCV [Entitic volume] by Automated count 80.0-94.0 [facility] No Panel Informationon 05-16 Bedside Influenza Type A Antigen Negative [facility] Comment on above: Negative for Flu A p rotein antigen. Infection due to Flu Acannot be ruled out. Flu A antigen in the sample may bebelow the detection limit of the test. Bedside Influenza Type B Antigen Negative [facility] Comment on above: Negative for Flu B p rotein antigen. Infection due to Flu Bcannot be ruled out. Flu B antigen in the sample may bebelow the detection limit of the test. Absolute Basophils (Manual) 0.00 10 3/uL 0.00-0.10 [facility] Eosinophils # (Manual) 0.00 10 3/uL 0.00-0.70 [facility] Lymphocytes # (Manual) 0.58 10 3/uL Low 1.20-3.80 [facility] Monocytes # (Manual) 1.55 10 3/uL High 0.30-0.80 [facility] Segmented Neutrophils # (Manual) 17.26 10 3/uL High 1.4-6.5 [facility] Troponin I High Sensitivity 11.4 pg/mL 4.0-76.1 [facility] Comment on above: CUT-OFF POINTS HAVE BEEN ESTABLISHED BASED ON THE FOURTHUNIVERSAL DEFINITION OF MYOCARDIAL INFARCTION. THE UPPERREFERENCE LIMIT (URL) OF TROPONIN, DEFINED THE 99THPERCENTILE OF cTnI DISTRIBUTION IN A REFERENCE POPULATION,HAS BEEN CONFIRMED THE DECISION THRESHOLD FOR MIDIAGNOSIS.99TH PERCENTILE = 76.2 PG/MLNOTE: HIGH-SENSITIVITY TROPONIN ASSAY IS NOT INTENDED TO BEUSED IN ISOLATION BUT SHOULD BE INTERPRETED IN CONJUNCTIONWITH OTHER DIAGNOSTIC AND CLINICAL INFORMATION. Platelet mean volume Auto (B ld) [Entitic vol]on 05-16-2024 Platelet mean volume (Bld) [Entitic vol] Platelet mean volume [Entitic volume] in Blood by Automated count 9.5-13.5 [facility] Platelets Auto (Bld) [#/Vol] on 05-16-2024 Platelets (Bld) [#/Vol] Platelets [#/volume] in Blood by Automated count 150-450 [facility] RBC Auto (Bld) [#/Vol]on RBC (Bld) [#/Vol] Erythrocytes [#/volume] in Blood by Automated count Low 4.70-6.10 [facility] Segmented neutrophils/100 WB C Manual cnt (Bld)on 05-16-2024 Segmented neutrophils/100 WBC (Bld) Manual blood segmented neutrophils/100 leukocytes High 43.0-75.0 [facility] Serum or plasma albumin/glob ulin mass ratioon 05-16-2024 Albumin/Globulin [Mass ratio] Serum or plasma albumin/globulin mass ratio [facility] Serum or plasma anion gap de terminationon 05-16-2024 Anion gap [Moles/Vol] Serum or plasma an ion gap determination [facility] Urine Cultureon 05-16-2024 Bacteria identified Cx Nom (U) ORGANISM: Serratia marcescens (O:SERMAR) Thrall Count >100,000 Aerobic WILI Charge ([id number]) ---- SUSCEPTIBILITY --- ORGANISM: O:SERMAR ANTIBIOTIC INTERPRETATION WILI Amikacin S <16 Aztreonam IB <4 Cefepime S <2 Ceftazidime R >16 Ceftazidime/Avibactam S <4 Ceftolozane/Tazobacta m S <2 Ceftriaxone IB <1 Ciprofloxacin S <0.25 Ertapenem S <0.5 Gentamicin S <2 Levofloxacin S <0.5 Meropenem S <1 Meropenem/Vaborbactam S <2 Piperacillin/Tazobact am IB <8 Tetracycline R >8 Tigecycline S <2 Tobramycin S <2 Trimethoprim/Sulfamet hoxazole S <0.5 S = SUSCEPTIBLE I = INTERMEDIATE R = RESISTANT BLANK = DATA NOT AVAILABLE, OR DRUG NOT ADVISABLE OR TESTED R* = RESISTANCE DUE TO EXTENDED SPECTRUM BETA-LACTAMASES ESBL = EXTENDED SPECTRUM BETA-LACTAMASE TFG = THYMIDINE-DEPENDENT STRAIN THOMAS = BETA-LACTAMASE POSITIVE IB = INDUCIBLE BETA-LACTAMASE. APPEARS IN PLACE OF 'S' WITH SPECIES KNOWN TO POSSESS INDUCIBLE BETA-LACTAMASES. POTENTIALLY THEY MAY BECOME RESISTANT TO ALL B-LACTAM DRUGS. PERFORMED BY: [place] [address] PATHOLOGIST STICK WELDER ADAM PETERSON M.D. Normal [facility] Comment on above: Performed By: #### C UU #### [facility] [address] [place] [address] Urine cultureOrdered By: Zo rodarte Marker on 05-16-2024 Bacteria identified Cx Nom (U) Abnormal [facility] Documentationon 05-12-2024 Documentation [id number] Saurabh Prasad 1950 M Date Provider Department Center 05/12/2024 [id number] CAMARENA [facility] Family History Problem Relation Age of Onset No Known Problems Mother No Known Problems Father Family Status - Relation Status Age at Mother Father Reason for Visit and Comments: PharmD Cardiology Consult [Other] Normal [facility] Office Visiton 05-11-2024 Follow-up visit [id number] Saurabh Prasad 1950 M Date Provider Department Center 05/11/2024 [id number] HENRIQUEZ CARD [facility] Family History Problem Relation Age of Onset No Known Problems Mother No Known Problems Father Family Status - Relation Status Age at Mother Father Level of Service:56109 PA OFFICE/OUTPATIENT ESTABLISHED LOW MDM 20 MIN Reason for Visit and Comments: Coronary Artery Disease [187] Hypertension [748997] Hyperlipidemia [182] Normal [facility] Basophils Auto (Bld) [#/Vol] on 02-18-2024 Basophils (Bld) [#/Vol] Automated basophil count 0.0-0.1 [facility] Basophils/100 WBC Auto (Bld) on 02-18-2024 Basophils/100 WBC (Bld) Automated basophil % 0.2-2.0 [facility] Eosinophils/100 WBC Auto (Bl d)on 02-18-2024 Eosinophils/100 WBC (Bld) Automated eosinophil % 0.9-7.0 [facility] Erythrocyte distribution wid th Auto (RBC) [Ratio]on 02-18-2024 Erythrocyte distribution width (RBC) [Ratio] Erythrocyte distribution width [Ratio] by Automated count 11.0-15.0 [facility] Estimated glomerular filtrat ion rate (GFR) non- Americanon 02-18-2024 GFR/1.73 sq M.predicted among non-blacks MDRD (S/P/Bld) [Vol rate/Area] Estimated glomerular filtration rate (GFR) non- >=60 mL/min/1.73m 2 [facility] Glucose mean value [Mass/vol ume] in Blood Estimated from glycated hemoglobinon 02-18-2024 Average glucose Estimated from glycated hemoglobin (Bld) [Mass/Vol] Glucose mean value [Mass/volume] in Blood Estimated from glycated hemoglobin [facility] Hematocrit Auto (Bld) [Volum e fraction]on 02-18-2024 Hematocrit (Bld) [Volume fraction] Hematocrit [Volume Fraction] of Blood by Automated count 42.0-54.0 [facility] Hemoglobin [Mass/volume] in Bloodon 02-18-2024 Hemoglobin (Bld) [Mass/Vol] Hemoglobin [Mass/volume] in Blood Low 14.0-18.0 [facility] Laboratory - Chemistry and C hemistry - challengeon 02-18-2024 Calcium [Mass/Vol] 9.2 mg/dL 8.5-10.1 [facility] Chloride [Moles/Vol] 103 mmol/L 98-107 [facility] CO2 [Moles/Vol] 30.4 mmol/L 21.0-32.0 [facility] Creatinine [Mass/Vol] 0.96 mg/dL 0.70-1.30 [facility] GFR/1.73 sq M.predicted MDRD (S/P/Bld) [Vol rate/Area] mL/min/{1.73_m2} >=60 mL/min/1.73m 2 [facility] Glucose [Mass/Vol] 141 mg/dL High 74-106 [facility] Potassium [Moles/Vol] 4.6 mmol/L 3.5-5.1 [facility] Sodium [Moles/Vol] 141 mmol/L 136-145 [facility] Urea nitrogen [Mass/Vol] 17.0 mg/dL 7.0-18.0 [facility] Urea nitrogen/Creatinine [Mass ratio] 17.7 mg/mg [facility] Laboratory - Hematology and Cell countson 02-18-2024 HbA1c (Bld) [Mass fraction] 7.4 % High 4.5-6.2 [facility] Comment on above: ADA RECOMMENDED LIMI T 4.0 - 6.0ADA THERAPEUTIC TARGET < 7.0ACTION SUGGESTED> 7.0 Immature granulocytes/100 WBC (Bld) 0.2 % 0.0-0.5 [facility] Leukocytes [#/volume] correc aarti for nucleated erythrocytes in Blood by Automated counon 02-18-2024 WBC corrected for nucl RBC Auto (Bld) [#/Vol] Leukocytes [#/volume] corrected for nucleated erythrocytes in Blood by Automated coun 4.0-11.0 [facility] Lymphocytes Auto (Bld) [#/Vo l]on 02-18-2024 Lymphocytes (Bld) [#/Vol] Lymphocytes [#/volume] in Blood by Automated count 1.2-3.8 [facility] Lymphocytes/100 WBC Auto (Bl d)on 02-18-2024 Lymphocytes/100 WBC (Bld) Lymphocytes/100 leukocytes in Blood by Automated count 20.5-60.0 [facility] MCH Auto (RBC) [Entitic mass ]on 02-18-2024 MCH (RBC) [Entitic mass] MCH [Entitic mass] by Automated count 25.9-34.0 [facility] MCHC Auto (RBC) [Mass/Vol]on 02-18-2024 MCHC (RBC) [Mass/Vol] MCHC [Mass/volume] by Automated count 29.9-35.2 [facility] MCV Auto (RBC) [Entitic vol] on 02-18-2024 MCV (RBC) [Entitic vol] MCV [Entitic volume] by Automated count 80.0-94.0 [facility] Monocytes Auto (Bld) [#/Vol] on 02-18-2024 Monocytes (Bld) [#/Vol] Automated blood monocyte count 0.3-0.8 [facility] Monocytes/100 WBC Auto (Bld) on 02-18-2024 Monocytes/100 WBC (Bld) Automated monocyte % 1.7-12.0 [facility] Neutrophils Auto (Bld) [#/Vo l]on 02-18-2024 Neutrophils (Bld) [#/Vol] Neutrophils [#/volume] in Blood by Automated count 1.4-6.5 [facility] Neutrophils/100 WBC Auto (Bl d)on 02-18-2024 Neutrophils/100 WBC (Bld) Automated neutrophil % 43.0-75.0 [facility] No Panel Informationon 02-17 Eosinophils # (Auto) 0.2 10 3/uL 0.0-0.7 [facility] Immature Granulocyte # (Auto) 0.02 10 3/uL 0.00-0.03 [facility] Platelet mean volume Auto (B ld) [Entitic vol]on 02-18-2024 Platelet mean volume (Bld) [Entitic vol] Platelet mean volume [Entitic volume] in Blood by Automated count Low 9.5-13.5 [facility] Platelets Auto (Bld) [#/Vol] on 02-18-2024 Platelets (Bld) [#/Vol] Platelets [#/volume] in Blood by Automated count 150-450 [facility] RBC Auto (Bld) [#/Vol]on RBC (Bld) [#/Vol] Erythrocytes [#/volume] in Blood by Automated count 4.70-6.10 [facility] Serum or plasma anion gap de terminationon 02-18-2024 Anion gap [Moles/Vol] Serum or plasma an ion gap determination [facility] Cholesterol in LDL Calc [Mas s/Vol]on 07-08-2023 Cholesterol in LDL [Mass/Vol] 138.0 mg/dL [facility] Comment on above: <100 mg/dl [id number] 0-129 mg/dl NEAR OR ABOVE [id number] mg/dl BORDERLINE [id number] mg/dl HIGH>190 mg/dl VERY HIGH Cholesterol in VLDL Calc [Ma ss/Vol]on 07-08-2023 Cholesterol in VLDL [Mass/Vol] 42.0 mg/dL [facility] Estimated glomerular filtrat ion rate (GFR) non- Americanon 07-08-2023 GFR/1.73 sq M.predicted among non-blacks MDRD (S/P/Bld) [Vol rate/Area] mL/min/{1.73_m2} >=60 [facility] Globulin Calc (S) [Mass/Vol] on 07-08-2023 Globulin (S) [Mass/Vol] 4.1 g/dL [facility] Glucose mean value [Mass/vol ume] in Blood Estimated from glycated hemoglobinon 07-08-2023 Average glucose Estimated from glycated hemoglobin (Bld) [Mass/Vol] 197 mg/dL [facility] Laboratory - Chemistry and C hemistry - challengeon 07-08-2023 Albumin [Mass/Vol] 3.5 g/dL 3.4-5.0 [facility] ALP [Catalytic activity/Vol] 90 U/L 46-116 [facility] ALT [Catalytic activity/Vol] 39 U/L 16-63 [facility] AST [Catalytic activity/Vol] 36 U/L 15-37 [facility] Bilirubin [Mass/Vol] 0.4 mg/dL 0.2-1.0 [facility] Calcium [Mass/Vol] 9.4 mg/dL 8.5-10.1 [facility] Chloride [Moles/Vol] 101 mmol/L 98-107 [facility] Cholesterol [Mass/Vol] 219 mg/dL <=200 [facility] Cholesterol in HDL [Mass/Vol] 39 mg/dL 40-60 [facility] Comment on above: > or =60 mg/dl - LOW CARDIOVASCULAR RISK<40 mg/dl - HIGH CARDIOVASCULAR RISK CO2 [Moles/Vol] 30.3 mmol/L 21.0-32.0 [facility] Creatinine [Mass/Vol] 0.83 mg/dL 0.70-1.30 [facility] GFR/1.73 sq M.predicted MDRD (S/P/Bld) [Vol rate/Area] mL/min/{1.73_m2} >=60 [facility] Glucose [Mass/Vol] 137 mg/dL 74-106 [facility] Potassium [Moles/Vol] 4.3 mmol/L 3.5-5.1 [facility] Protein [Mass/Vol] 7.6 g/dL 6.4-8.2 [facility] Sodium [Moles/Vol] 140 mmol/L 136-145 [facility] Triglyceride [Mass/Vol] 210 mg/dL <=150 [facility] TSH Qn 3.188 m[IU]/L 0.358-3.740 [facility] Urea nitrogen [Mass/Vol] 12.0 mg/dL 7.0-18.0 [facility] Urea nitrogen/Creatinine [Mass ratio] 14.5 mg/mg [facility] Laboratory - Hematology and Cell countson 07-08-2023 HbA1c (Bld) [Mass fraction] 8.5 % 4.5-6.2 [facility] Comment on above: ADA RECOMMENDED LIMI T 4.0 - 6.0ADA THERAPEUTIC TARGET < 7.0ACTION SUGGESTED> 7.0 Microalbumin [Mass/volume] i n Urineon 07-08-2023 Albumin DL <= 20 mg/L (U) [Mass/Vol] 2.4 mg/dL <=30.0 [facility] No Panel Informationon 07-07 Prostate Specific Antigen Screen 0.61 ng/mL <=4.00 [facility] Serum or plasma albumin/glob ulin mass ratioon 07-08-2023 Albumin/Globulin [Mass ratio] 0.9 {ratio} [facility] Serum or plasma anion gap de terminationon 07-08-2023 Anion gap [Moles/Vol] 13.0 [facility] Serum or plasma total choles terol/high density lipoprotein (HDL) cholesterol mass ponce 07-08-2023 Cholesterol.total/Cho lesterol in HDL [Mass ratio] 5.6 {ratio} [facility] Comment on above: 3.3 - 4.4 LOW RISK4. 4 - 7.1 AVERAGE RISK7.1 - 11.0 MODERATE RISK>11.0 HIGH RISK LIPID PROFILEon 04-30-2022 CHOL-HDL RATIO NORM SEE BELOW Normal [facility] Comment on above: Result Comment: 3.3 - 4.4 LOW RISK 4.4 - 7.1 AVERAGE RISK 7.1 - 11.0 MODERATE RISK >11.0 HIGH RISK Performed By: #### L IPID, CMP #### [facility] [address] [address] [address] Alberta Stern Cholesterol [Mass/Vol] 105 mg/dL Normal <=200 [facility] Comment on above: Performed By: #### L IPID, CMP #### [facility] [address] [address] [address] Alberta Stern Cholesterol in HDL [Mass/Vol] 38 mg/dL Critically low 40-60 [facility] Comment on above: Performed By: #### L IPID, CMP #### [facility] [address] [address] [address] Alberta Stern Cholesterol in LDL [Mass/Vol] 46.6 mg/dL Normal [facility] Comment on above: Performed By: #### L IPID, CMP #### [facility] [address] [address] [address] Alberta Stern Cholesterol.total/Cho lesterol in HDL [Mass ratio] 2.8 {ratio} Normal [facility] Comment on above: Performed By: #### L IPID, CMP #### [facility] [address] [address] [address] Alberta Stern HDL NORMAL > or = 60 mg/dl - LO W CARDIOVASCULAR RISK <40 mg/dl - HIGH CARDIOVASCULAR RISK Normal [facility] Comment on above: Performed By: #### L IPID, CMP #### [facility] [address] [address] [address] Alberta Stern LDL CALC NORMAL SEE BELOW Normal [facility] Comment on above: Result Comment: <100 mg/dl OPTIMAL 100 - 129 mg/dl NEAR OR ABOVE OPTIMAL 130 - 159 mg/dl BORDERLINE HIGH 160 - 189 mg/dl HIGH >190 mg/dl VERY HIGH Performed By: #### L IPID, CMP #### [facility] [address] [place] [address] Dr. Alberta Stern Triglyceride [Mass/Vol] 102 mg/dL Normal <=150 [facility] Comment on above: Performed By: #### L IPID, CMP #### [facility] [address] [place] [address] Dr. Alberta Stern VLDL CALC 20.4 mg/dL Normal [facility] Comment on above: Performed By: #### L IPID, CMP #### [facility] [address] [place] [address] Dr. Alberta Stern PROF 14(COMP METB)on 023 Albumin [Mass/Vol] 3.5 g/dL Normal 3.4-5.0 [facility] Comment on above: Performed By: #### L IPID, CMP #### [facility] [address] [place] [address] Dr. Alberta Stern Albumin/Globulin [Mass ratio] 1.0 {ratio} Normal [facility] Comment on above: Performed By: #### L IPID, CMP #### [facility] [address] [place] [address] Dr. Alberta Stern ALP [Catalytic activity/Vol] 95 U/L Normal 46-116 [facility] Comment on above: Performed By: #### L IPID, CMP #### [facility] [address] [place] [address] Dr. Alberta Stern ALT [Catalytic activity/Vol] 23 U/L Normal 16-63 [facility] Comment on above: Performed By: #### L IPID, CMP #### [facility] [address] [place] [address] Dr. Alberta Stern Anion gap [Moles/Vol] 12.2 mmol/L Normal [facility] Comment on above: Performed By: #### L IPID, CMP #### [facility] [address] [place] [address] Dr. Alberta Stern AST [Catalytic activity/Vol] 19 U/L Normal 15-37 [facility] Comment on above: Performed By: #### L IPID, CMP #### [facility] [address] [place] [address] Dr. Alberta Stern Bilirubin [Mass/Vol] 0.4 mg/dL Normal 0.2-1.0 [facility] Comment on above: Performed By: #### L IPID, CMP #### [facility] [address] [place] [address] Dr. Alberta Stern Calcium [Mass/Vol] 8.9 mg/dL Normal 8.5-10.1 [facility] Comment on above: Performed By: #### L IPID, CMP #### [facility] [address] [place] [address] Dr. Alberta Stern Chloride [Moles/Vol] 103 mmol/L Normal 98-107 [facility] Comment on above: Performed By: #### L IPID, CMP #### [facility] [address] [place] [address] Dr. Alberta Stern CO2 [Moles/Vol] 29.2 mmol/L Normal 21.0-32.0 [facility] Comment on above: Performed By: #### L IPID, CMP #### [facility] [address] [place] [address] Dr. Alberta Stern Creatinine [Mass/Vol] 0.74 mg/dL Normal 0.70-1.30 [facility] Comment on above: Performed By: #### L IPID, CMP #### [facility] [address] [place] [address] Dr. Alberta Stern EGFR-AF TOGOLESE >60 Normal >=60 [facility] Comment on above: Performed By: #### L IPID, CMP #### [facility] [address] [place] [address] Dr. Alberta Stern EGFR-NON AF TOGOLESE >60 Normal >=60 [facility] Comment on above: Performed By: #### L IPID, CMP #### [facility] [address] [place] [address] Dr. Alberta Stern Globulin (S) [Mass/Vol] 3.6 g/dL Normal [facility] Comment on above: Performed By: #### L IPID, CMP #### [facility] [address] [place] [address] Dr. Alberta Stern Glucose [Mass/Vol] 143 mg/dL Critically high 74-106 [facility] Comment on above: Performed By: #### L IPID, CMP #### [facility] [address] [place] [address] Dr. Alberta Stern Potassium [Moles/Vol] 4.4 mmol/L Normal 3.5-5.1 [facility] Comment on above: Performed By: #### L IPID, CMP #### [facility] [address] [place] [address] Dr. Alberta Stern Protein [Mass/Vol] 7.1 g/dL Normal 6.4-8.2 [facility] Comment on above: Performed By: #### L IPID, CMP #### [facility] [address] [place] [address] Dr. Alberta Stern Sodium [Moles/Vol] 140 mmol/L Normal 136-145 [facility] Comment on above: Performed By: #### L IPID, CMP #### [facility] [address] [place] [address] Dr. Alberta Stern Urea nitrogen [Mass/Vol] 15.0 mg/dL Normal 7.0-18.0 [facility] Comment on above: Performed By: #### L IPID, CMP #### [facility] [address] [place] [address] Dr. Alberta Stern Urea nitrogen/Creatinine [Mass ratio] 20.3 mg/mg Normal [facility] Comment on above: Performed By: #### L IPID, CMP #### [facility] [address] [place] [address] ABD/PELVIS WO CONon 11-24 CT ABD/PELVIS [...] BAILEY GLASS Date: 2021-11-23 22:10 Normal [facility] ER URINE PROFILEon 2 Bilirubin Ql (U) Negative Normal NEGATIVE [facility] Comment on above: Performed By: #### U MICRO, ERUR #### [facility] [address] [place] [address] Dr. Alberta Stern Clarity (U) CLEAR Normal CLEAR [facility] Comment on above: Performed By: #### U MICRO, ERUR #### [facility] [address] [address] [address] Alberta Stern Color (U) YELLOW Normal YELLOW [facility] Comment on above: Performed By: #### U MICRO, ERUR #### [facility] [address] [place] [address] Dr. Alberta Stern ERUAHD A micrscopic examination will be performed if indicated. Normal [facility] Comment on above: Performed By: #### U MICRO, ERUR #### [facility] [address] [address] [address] Alberta Stern Glucose Ql (U) Negative Normal NEGATIVE [facility] Comment on above: Performed By: #### U MICRO, ERUR #### [facility] [address] [address] [address] Alberta Stern Hemoglobin Ql (U) SMALL Abnormal NEGATIVE [facility] Comment on above: Performed By: #### U MICRO, ERUR #### [facility] [address] [address] [address] Alberta Stern Ketones Ql (U) TRACE Abnormal NEGATIVE [facility] Comment on above: Performed By: #### U MICRO, ERUR #### [facility] [address] [address] [address] Alberta Stern LEUKOCYTES Negative Normal NEGATIVE [facility] Comment on above: Performed By: #### U MICRO, ERUR #### [facility] [address] [address] [address] Alberta Stern Nitrite Ql (U) Negative Normal NEGATIVE [facility] Comment on above: Performed By: #### U MICRO, ERUR #### [facility] [address] [address] [address] Alberta Stern pH (U) 6.0 [pH] Normal 5-9 [facility] Comment on above: Performed By: #### U MICRO, ERUR #### [facility] [address] [address] [address] Alberta Stern SPEC GRAVITY 1.025 Normal 1.005-<=1.025 [facility] Comment on above: Performed By: #### U MICRO, ERUR #### [facility] [address] [address] [address] Alberta Stern UA PROTEIN Negative Normal NEGATIVE/ TRACE [facility] Comment on above: Performed By: #### U MICRO, ERUR #### [facility] [address] [address] [address] Alberta Stern UR MICRO IND INDICATED Normal [facility] Comment on above: Performed By: #### U MICRO, ERUR #### [facility] [address] [place] [address] Dr. Alberta Stern Urobilinogen Qn (U) 1.0 {Makenna'U}/dL Normal 0.2 - 1. 0 [facility] Comment on above: Performed By: #### U MICRO, ERUR #### [facility] [address] [place] [address] Dr. Alberta Stern URINE MICROSCOPIC ONLYon BACTERIA NONE SEEN Normal NONE SEEN [facility] Comment on above: Performed By: #### U MICRO, ERUR #### [facility] [address] [place] [address] Dr. Alberta Stern Bacteria identified Cx Nom (U) NOT INDICATED Normal [facility] Comment on above: Performed By: #### U MICRO, ERUR #### [facility] [address] [place] [address] Dr. Alberta Stern CAST NONE SEEN Normal NONE SEEN [facility] Comment on above: Performed By: #### U MICRO, ERUR #### [facility] [address] [place] [address] Dr. Alberta Stern Crystals LM Nom (Urine sed) NONE SEEN Normal NONE SEEN [facility] Comment on above: Performed By: #### U MICRO, ERUR #### [facility] [address] [place] [address] Dr. Alberta Stern Epithelial cells LM Ql (Urine sed) RARE Normal NONE SEEN /RARE [facility] Comment on above: Performed By: #### U MICRO, ERUR #### [facility] [address] [place] [address] Dr. Alberta Stern MUCOUS NONE SEEN Normal NONE SEEN [facility] Comment on above: Performed By: #### U MICRO, ERUR #### [facility] [address] [place] [address] Dr. Alberta Stern RBC 20-50 Abnormal 0-2 [facility] Comment on above: Performed By: #### U MICRO, ERUR #### [facility] [address] [place] [address] Dr. Alberta Stern WBC NONE SEEN Normal NONE SEEN [facility] Comment on above: Performed By: #### U MICRO, ERUR #### [facility] [address] [address] [address] Alberta Stern XR LSPINE 2_3 VIEWSon [...] by: ALEKSANDRA MAR Date: 2021-11-23 20:12 Normal [facility] LIPID PROFILEon 09-01-2021 CHOL-HDL RATIO NORM SEE BELOW Normal [facility] Comment on above: Result Comment: 3.3 - 4.4 LOW RISK 4.4 - 7.1 AVERAGE RISK 7.1 - 11.0 MODERATE RISK >11.0 HIGH RISK Performed By: #### L IPID #### [facility] [address] [address] [address] Alberta Stern Cholesterol [Mass/Vol] 92 mg/dL Normal <=200 [facility] Comment on above: Performed By: #### L IPID #### [facility] [address] [address] [address] Alberta Stern Cholesterol in HDL [Mass/Vol] 37 mg/dL Critically low 40-60 [facility] Comment on above: Performed By: #### L IPID #### [facility] [address] [address] [address] Alberta Stern Cholesterol in LDL [Mass/Vol] 33.0 mg/dL Normal [facility] Comment on above: Performed By: #### L IPID #### [facility] [address] [address] [address] Alberta Stern Cholesterol.total/Cho lesterol in HDL [Mass ratio] 2.5 {ratio} Normal [facility] Comment on above: Performed By: #### L IPID #### [facility] [address] [place], [place] [address] Dr. Alberta Stern HDL NORMAL > or = 60 mg/dl - LO W CARDIOVASCULAR RISK <40 mg/dl - HIGH CARDIOVASCULAR RISK Normal [facility] Comment on above: Performed By: #### L IPID #### [facility] [address] [place], [place] [address] Dr. Alberta Stern LDL CALC NORMAL SEE BELOW Normal [facility] Comment on above: Result Comment: <100 mg/dl OPTIMAL 100 - 129 mg/dl NEAR OR ABOVE OPTIMAL 130 - 159 mg/dl BORDERLINE HIGH 160 - 189 mg/dl HIGH >190 mg/dl VERY HIGH Performed By: #### L IPID #### [facility] [address] [address] [address] Alberta Stern Triglyceride [Mass/Vol] 110 mg/dL Normal <=150 [facility] Comment on above: Performed By: #### L IPID #### [facility] [address] [address] [address] Alberta Stern VLDL CALC 22.0 mg/dL Normal [facility] Comment on above: Performed By: #### L IPID #### [facility] [address] [address] [address] Alberta Stern Cardiovascular Lab Reporton 04-17-2021 Cardiovascular Lab Report [facility] Patient Name: [facility] Saurabh MR #: [id number] Department of Physician: Lesli Bunch Raj Jackson M.D. Division of Service Date: 04/16/2021 Cardiology Birthdate: 1950 Adult Cardiovascular Room #: [address] [place] [address] Cardiovascular Laboratory Report INDICATION: The patient is [...] the informed consent. He was brought to laboratory coordinator in a fasting state. The left wrist area was prepped and draped in usual fashion. Micropuncture technique was used for access in the left radial artery. A 6-Bahraini x 11 cm sheath was placed. Verapamil was given through the sheath and heparin was administered intravenously. Bilateral selective coronary angiography was then performed using 6-Bahraini JL4 and JR4 diagnostic catheters. Catheters were removed. Additional heparin was given and therapeutic ACT confirmed during the rest of the procedure and additional heparin given as needed. A 6-Bahraini JR4 guiding catheter was advanced and used to engage the right coronary ostium. A RedKixwater wire was advanced into the distal RCA. Balloon dilatation in the mid RCA was performed using an Emerge 3.5 x 20 mm balloon inflated at 8 atmospheres. Angiography revealed suboptimal results. This was treated using a Synergy XD 4.0 x 24 mm drug-eluting stent deployed at 11 atmospheres and post dilated using NC Quantum [place] 4.0 x 15 mm noncompliant balloon inflated [...] Jackson M.D. Date Trans: 04/17/2021 04:38 A/bryant [id number] Normal [facility] LIPID PROFILEon 04-16-2021 Cholesterol [Mass/Vol] 168 mg/dL Normal 120-200 [facility] Comment on above: Result Comment: CHOL ESTEROL REFERENCE RANGE: 20 YEARS AND OLDER CARDIOVASCULAR RISK Less than 200 mg/dl Low Risk 200 to 239 mg/dl Borderline Risk 240 mg/dl and greater High Risk Performed By: #### [id number] #### [facility] [address] Cholesterol in HDL [Mass/Vol] 33 mg/dL Normal 23-92 [facility] Comment on above: Result Comment: Slig ht variation in normal range could be due to gender and/or age. HDL CHOLESTEROL REFERENCE RANGE: 20 years and older Cardiovascular Risk > or =60 mg/dL Desirable 40 TO 59 mg/dL Low Risk <40 mg/dL High Risk Performed By: #### [id number] #### [facility] [address] [facility] [place] [address], [facility] Cholesterol in LDL [Mass/Vol] 119 mg/dL Normal 0-130 [facility] Comment on above: Result Comment: LDL IS A CALCULATION LDL IS ONLY VALID IF THE TRIG IS LESS THAN 400. Performed By: #### [id number] #### [facility] [address] [facility] [place] [address], [facility] Cholesterol.total/Cho lesterol in HDL [Mass ratio] 5.1 {ratio} High .0-4.5 [facility] Comment on above: Performed By: #### [id number] #### [facility] [address] [facility] [place] [address], [facility] NON-HDL CHOLESTEROL 135 mg/dL Normal The [facility] Comment on above: Performed By: #### [id number] #### [facility] [address] [facility] [place] [address], [facility] Triglyceride [Mass/Vol] 82 mg/dL Normal 40-149 [facility] Comment on above: Result Comment: TRIG LYCERIDE REFERENCE RANGE: 20 YEARS AND OLDER CARDIOVASCULAR RISK LESS THAN 150 mg/dl LOW RISK 150 TO 199 mg/dl BORDERLINE RISK 200 mg/dl AND GREATER HIGH RISK Performed By: #### [id number] #### [facility] [address] [facility] [place] [address], [facility] VLDL CHOL 16 mg/dL Normal 0-40 [facility] Comment on above: Performed By: #### [id number] #### [facility] [address] [place], [place] [id number] [place] [address] Vital Signs Date Time Vital Sign Value Performing Clinician Facility 11-14-2024 10:040 Body height 177.8 cm Desi Barth MD Work Phone: [facility] 11-14-2024 10:26-0400 Body mass index (BMI) [Ratio] 47.1 kg/m2 Desi Barth MD Work Phone: [facility] 11-14-2024 10:26-0400 Body weight 148.94 kg Desi Barth MD Work Phone: [facility] 11-14-2024 10:26-0400 Diastolic blood pressure 57 mm[Hg] Desi Barth MD Work Phone: [facility] 11-14-2024 10:26-0400 Heart rate 49 /min Desi Barth MD Work Phone: [facility] 11-14-2024 10:26-0400 Systolic blood pressure 94 mm[Hg] Desi Barth MD Work Phone: [facility] 08-23-2024 09:45-0400 Body height 177.8 cm [facility] 08-23-2024 09:45-0400 Body mass index (BMI) [Ratio] 47.9 kg/m2 [facility] 08-23-2024 09:45-0400 Body temperature 98.6 [degF] [facility] 08-23-2024 09:45-0400 Body weight 151.49 kg [facility] 08-23-2024 09:45-0400 Diastolic blood pressure 65 mm[Hg] [facility] 08-23-2024 09:45-0400 Heart rate 52 /min [facility] 08-23-2024 09:45-0400 SaO2% (BldA) [Mass fraction] 94 % [facility] 08-23-2024 09:45-0400 Systolic blood pressure 109 mm[Hg] [facility] 06-08-2024 15:53-0400 Body height 180.3 cm Jason Dumont DPM Work Phone: [facility] 06-08-2024 15:53-0400 Body mass index (BMI) [Ratio] 43.93 kg/m2 Jason Dumont DPM Work Phone: [facility] 06-08-2024 15:53-0400 Body weight 142.88 kg Jason Dumont DPM Work Phone: [facility] 05-22-2024 14:04-0400 Body height 177.8 cm Desi Barth MD Work Phone: [facility] 05-22-2024 14:04-0400 Body mass index (BMI) [Ratio] 47.5 kg/m2 Desi Barth MD Work Phone: [facility] 05-22-2024 14:04-0400 Body temperature 98.3 [degF] Desi Brath MD Work Phone: [facility] 05-22-2024 14:04-0400 Body weight 150.13 kg Desi Barth MD Work Phone: [facility] 05-22-2024 14:04-0400 Diastolic blood pressure 64 mm[Hg] Desi Barth MD Work Phone: [facility] 05-22-2024 14:04-0400 Heart rate 63 /min Desi Barth MD Work Phone: [facility] 05-22-2024 14:04-0400 Systolic blood pressure 107 mm[Hg] Desi Barth MD Work Phone: [facility] 04-20-2024 10:38-0500 Body height 177.8 cm [facility] 04-20-2024 10:38-0500 Body mass index (BMI) [Ratio] 48.3 kg/m2 [facility] 04-20-2024 10:38-0500 Body weight 152.86 kg [facility] 04-20-2024 10:38-0500 Diastolic blood pressure 64 mm[Hg] [facility] 04-20-2024 10:38-0500 Heart rate 65 /min [facility] 04-20-2024 10:38-0500 Systolic blood pressure 121 mm[Hg] [facility] 02-18-2024 08:51-0500 Body height 177.8 cm [facility] 02-18-2024 08:51-0500 Body mass index (BMI) [Ratio] 47.9 kg/m2 [facility] 02-18-2024 08:51-0500 Body weight 151.49 kg [facility] 02-18-2024 08:51-0500 Diastolic blood pressure 78 mm[Hg] [facility] 02-18-2024 08:51-0500 Heart rate 66 /min [facility] 02-18-2024 08:51-0500 Systolic blood pressure 144 mm[Hg] [facility] 10-18-2023 10:17-0400 Body height 177.8 cm [facility] 10-18-2023 10:17-0400 Body mass index (BMI) [Ratio] 48.6 kg/m2 [facility] 10-18-2023 10:17-0400 Body weight 153.76 kg [facility] 10-18-2023 10:17-0400 Diastolic blood pressure 69 mm[Hg] [facility] 10-18-2023 10:17-0400 Heart rate 56 /min [facility] 10-18-2023 10:17-0400 Systolic blood pressure 120 mm[Hg] [facility] 08-17-2023 09:25-0400 Body height 177.8 cm [facility] 08-17-2023 09:25-0400 Body mass index (BMI) [Ratio] 108.5 kg/m2 [facility] 08-17-2023 09:25-0400 Body mass index (BMI) [Ratio] 49.2 kg/m2 [facility] 08-17-2023 09:25-0400 Body weight 343 kg [facility] 08-17-2023 09:25-0400 Body weight 155.58 kg [facility] 08-17-2023 09:25-0400 Diastolic blood pressure 70 mm[Hg] [facility] 08-17-2023 09:25-0400 Systolic blood pressure 120 mm[Hg] [facility] 07-08-2023 10:18-0400 Body height 177.8 cm [facility] 07-08-2023 10:18-0400 Body mass index (BMI) [Ratio] 48.3 kg/m2 [facility] 07-08-2023 10:18-0400 Body weight 152.86 kg [facility] 07-08-2023 10:18-0400 Diastolic blood pressure 79 mm[Hg] [facility] 07-08-2023 10:18-0400 Heart rate 66 /min [facility] 07-08-2023 10:18-0400 Systolic blood pressure 148 mm[Hg] [facility] 12-31-2021 11:30-0400 Body height 182.88 cm [employer] [facility] [employer] Other 12-31-2021 11:30-0400 Body mass index (BMI) [Ratio] 44.48 kg/m2 [employer] [facility] [employer] Other 12-31-2021 11:30-0400 Body weight 148.78 kg [employer] Other [employer] Other Encounters Encounter Date Encounter Type Care Provider Facility Start: 11-14-2024 End: 11-14-2024 ambulatory Desi Barth MD Work Phone: [facility] Work Phone: Start: 11-14-2024 End: 11-14-2024 Patient encounter procedure Desi Barth MD -[facility] Work Phone: Start: 08-23-2024 End: 08-23-2024 ambulatory [facility] Work Phone: Start: 08-23-2024 End: 08-23-2024 Patient encounter procedure [facility] Work Phone: Start: 06-08-2024 End: 06-08-2024 ambulatory JASON DUMONT Not Available Start: 06-08-2024 End: 06-08-2024 Office outpatient new 30 minutes Jason Dumont DPM Work Phone: [facility] Comment on above: Pain due to bone fix ation device, initial encounter (HCC) ([facility]) (Primary Dx); Foot pain, right; Pain due to onychomycosis of toenails of both feet; Diabetes mellitus due to underlying condition with diabetic polyneuropathy, unspecified whether terminologist insulin use ([facility]); Venous insufficiency Start: 06-08-2024 End: 06-08-2024 Bamboo flowsheet Jason Dumont DPM Work Phone: [facility] Start: 06-08-2024 End: 06-08-2024 Bamboo flowsheet Jason Dumont DPM Work Phone: [facility] Start: 06-02-2024 Non-patient / Non-visit [facility] Work Phone: Start: 05-22-2024 End: 05-22-2024 ambulatory Desi Barth MD Work Phone: [facility] Work Phone: Start: 05-22-2024 End: 05-22-2024 Patient encounter procedure Desi Barth MD Work Phone: [facility] Work Phone: Start: 05-17-2024 Non-patient / Non-visit Desi Barth MD Work Phone: [facility] Work Phone: Start: 05-17-2024 Non-patient / Non-visit Desi Barth MD Work Phone: [facility] Work Phone: Start: 05-16-2024 Non-patient / Non-visit Desi Barth MD Work Phone: [facility] Work Phone: Start: 05-16-2024 End: 05-16-2024 ambulatory Desi Barth Facility:[facility] Start: 05-16-2024 End: 05-16-2024 Departed Referred Desi Barth MD Work Phone: [facility] Start: 05-11-2024 End: 05-11-2024 ambulatory [facility] Start: 04-20-2024 End: 04-20-2024 ambulatory [facility] Work Phone: Start: 04-20-2024 End: 04-20-2024 [facility] Work Phone: Start: 02-18-2024 End: 02-18-2024 Patient encounter procedure [facility] Work Phone: Start: 02-15-2024 Non-patient / Non-visit [facility] Work Phone: Start: 10-18-2023 End: 10-18-2023 ambulatory [facility] Work Phone: Start: 10-18-2023 End: 10-18-2023 Patient encounter procedure [facility] Work Phone: Start: 08-17-2023 End: 08-17-2023 ambulatory [facility] Work Phone: Start: 08-17-2023 End: 08-17-2023 [facility] Work Phone: Start: 07-13-2023 Patient encounter procedure [facility] Start: 07-08-2023 End: 07-08-2023 ambulatory [facility] Work Phone: Start: 07-08-2023 End: 07-08-2023 Patient encounter procedure [facility] Work Phone: Start: 01-18-2023 End: 01-18-2023 ambulatory Desi Barth Other [employer] Other Start: 01-18-2023 Telephone encounter Desi Barth [facility] Start: 12-02-2022 End: 12-02-2022 ambulatory Desi Barth Other [employer] Other Start: 12-02-2022 Telephone encounter Desi Barth [facility] Start: 12-01-2022 End: 12-01-2022 ambulatory Desi Barth Other [employer] Other Start: 12-01-2022 Telephone encounter Desi Barth [facility] Start: 04-30-2022 End: 05-01-2022 ambulatory LUX [facility]AR Facility:[facility] Start: 03-30-2022 ambulatory [facility] Facility :[facility] Start: 12-31-2021 Office outpatient ne w 45 minutes Ayden Tanner II [facility] Start: 12-31-2021 End: 12-31-2021 ambulatory MD Desi Barth Work Phone: [employer] Other Start: 12-31-2021 End: 12-31-2021 Patient encounter procedure MD Desi Barth Work Phone: [facility] Start: 11-27-2021 Adult health examination Tracey Barth Other [employer] Other Start: 11-27-2021 End: 11-28-2021 ambulatory DESI BARTH Facility:[facility] Start: 11-23-2021 End: 11-24-2021 ambulatory DESI BARTH Facility:[facility] Start: 09-01-2021 End: 09-02-[address] LESLI JACKSON Facility:[facility] Start: 07-02-[address] LESLI JACKSON Fac ility:[facility] Start: 05-15-2021 End: 08-21-[address] LESLI JACKSON Facility:[facility] Start: 04-16-2021 End: 04-17-2021 ambulatory REFERRED SELF Facility:[facility] Procedures Date Procedure Procedure Detail Performing Clinician Start: 06-08-2024 Radex ankle complete minimum 3 views Jason Dumont DPM Work Phone: Start: 05-16-2024 Urine culture Desi jiménez MD Work Phone: Start: 12-31-2021 Plain X-ray of left hip MD Desi Barth Work Phone: Screening for malign ant neoplasm of prostate Desi Barth Other Plan of Treatment Date Care Activity Detail Author Start: 05-16-2024 Urine culture [facility] Start: 05-16-2024 Bacteria identified in Urine by Culture Urine Culture [facility] Comprehensive metabo lic 1999 panel - Serum or Plasma [facility] Comprehensive metabo lic 1999 panel - Serum or Plasma [facility] Microalbumin [Mass/v olume] in Urine [facility] XR Ankle - left GE 3 Views F [facility] XR Foot - left GE 3 Views Fi [facility] Payers Date Payer Category Payer Medicare (Managed Care) [employer] [id number] 1960 Medicare [id number] 1959 Self-pay [id number] 1959 Unknown [id number] 1950 Unknown [id number]. 2.647 1950 Unknown [id number] 2..[id number]. 2.593 1950 Unknown [id number] [id number]. 2.593 1949 Unknown [id number] [id number]. 2.593 1949 Unknown [id number] [id number]. 2.593 1949 Unknown [id number] 2.16.840.1.096767.3.579. 2.593 1949 Unknown [id number] 2.16.840.1.925049.3.579. 2.593 1949 Unknown [id number] [id number]. 2.593 1949 Unknown [id number] [id number]. 2.1259 1950 Unknown [id number] [id number]. 2.1259 Medicare Medicare [id number] Unknown [facility] [id number] Unknown [id number]. 2.531 Social History Date Type Detail Facility Sex Assigned At [employer] Other Start: 1950 Sex Assigned At Male F [facility] Start: 08-17-2023 End: 04-20-2024 Tobacco smoking status MAIS Never smoked tobacco (finding) [facility] Start: 04-20-2024 End: 08-23-2024 Sex Male (finding) [facility] Tobacco smoking status MAIS Tobacco smoking consumption unknown [facility] Start: 1950 Sex assigned at Not on file [facility] Start: 06-08-2024 Tobacco smoking status MAIS Ex-smoker [facility] History of tobacco use Current smoker [facility] History of tobacco use Cigarette Smoker [facility] Start: 06-08-2024 Tobacco use and exposure Smokeless tobacco non-user [facility] Medical Equipment Procedure Code Equipment Code Equipment Origin al Text Equipment Identifier Dates Capsule endoscopy, for patency of lumen evaluation Video capsule endoscopy system [id number] FDA Start: 05-13-2020 Blood Sugar Diagnostic (Onetouch Ultra Test) strip Start: 10-09-2024 Lancets (Onetouc h Ultrasoft 2 Lancet) 30 gauge misc Start: 10-09-2024 Clinical Notes 03-15-2020 to 08-23-2024 Note Date & Type Note Facility 08-23-2024 Evaluation note Diagnosis Onset Date Resolution Type 2 diabetes mellitus with hyperglycemia acute August 23 9:29am Viral URI with cough acute August 23, 2024 9:29am Bradycardia acute November 10:21am Essential (primary) hypertension acute November 14 10:21am Hypertension acute November 10:21am Type 2 diabetes mellitus with hyperglycemia acute November 10:21am [facility] Work Phone: 1(202) 343-324003-27-2025 History of Present illness Narrative* Jason Dumont, DPM - 06/08/2024 3:40 PM EDT Patient: Saurabh Prasad : 1950 PCP: Desi Barth MD SUBJECTIVE This is a 73 y.o. male that presents today with a CC of elongated, thick nails. Pt states nails have been elongated and thick for many years and cause pain with ambulation in shoegear. Pt has tried previous treatment with minimal relief. Pt presents today for nail care and treatment. Patient is DM2 Patient also has complaints of pain to the medial aspect of the right ankle where he had surgery proximally 10 years ago. He states sharp pain to the medial malleolar region and up to an 8/10 particularly if he touches it on his shoes. Denies any nausea vomiting chills Allergies: Not on File Past Medical History: History reviewed. No pertinent past medical history. Medications: Current Outpatient Medications: amLODIPine (Norvasc) 10 MG tablet, Take 10 mg by mouth in the morning., Disp: , Rfl: aspirin 81 MG EC tablet, aspirin 81 mg tablet,delayed release TAKE 1 TABLET BY MOUTH EVERY 24 HOURS, Disp: , Rfl: furosemide (Lasix) 8 MG/ML solution, Take by mouth Daily, Disp: , Rfl: glipiZIDE XL (Glucotrol XL) 10 MG 24 hr tablet, Take 10 mg by mouth Daily, Disp: , Rfl: metFORMIN, OSM, (Fortamet) 500 MG 24 hr tablet, Take 500 mg by mouth in the evening. Take with meals Do not crush, chew, or split., Disp: , Rfl: rosuvastatin (Crestor) 20 MG tablet, Take 20 mg by mouth at bedtime, Disp: , Rfl: Social History: Social History Socioeconomic History Marital status: Spouse name: Not on file Number of children: Not on file Years of education: Not on file Highest education level: Not on file Occupational History Not on file Tobacco Use Smoking status: Former Types: Cigarettes Smokeless tobacco: Never Substance and Sexual Activity Alcohol use: Not on file Drug use: Not on file Sexual activity: Not on file Other Topics Concern Not on file Social History Narrative Not on file Social Drivers of Health Financial Resource Strain: Not on file Food Insecurity: Not on file Transportation Needs: Not on file Physical Activity: Not on file Stress: Not on file Social Connections: Not on file Intimate Partner Violence: Unknown (05/06/2023) Received from [facility] [place] [facility] Environment Fear of Current or Ex-Partner: Not on file Emotionally Abused: Not on file Physically Abused: Not on file Sexually Abused: Not on file Physically or Sexually Abused: Not on file Housing Stability: Not on file ROS: General: denies fever, chills, fatigue, malaise Gastrointestinal: denies abdominal pain, ulcers, or changes in appetite or bowel habits Musculoskeletal: denies arthritis, denies loss of strength, pain to hip, knees, back Cardiovascular: denies CP, palpitations, irregular rhythms OBJECTIVE LE EXAM: DERM: Elongated thick yellow crumbly nails digits 1 through 10. Negative hair growth with thin shiny atrophic skin bilaterally VASC: Negative DP and negative PT pedal pulses NEURO: 5.07 [place] monofilament test diminished to digits and forefoot bilaterally 125Hz tuning fork diminished to 1st MPJ bilaterally ORTHO: Positive pain on palpation to toenails of the left 1,2,3,4,5 toes and right 1,2,3,4,5 toes Positive pain on palpation to right medial malleolus area and area of screw fixation X-ray:: XR ankle 3+ views right Imaging Result: Notable 2 screw fixation to the medial malleolar region with negative fractures identified degenerative changes to the tibiotalar joint and subtalar joint noted with pes planovalgus type foot ASSESSMENT 1. Pain due to bone fixation device, initial encounter (HCC) ([facility]) 2. Foot pain, right 3. Pain due to onychomycosis of toenails of both feet 4. Diabetes mellitus due to underlying condition with diabetic polyneuropathy, unspecified whether terminologist insulin use ([facility]) 5. Venous insufficiency PLAN Discussed proper foot care with patient today. Debride nails in length and thickness digits 1 through 10 Patient educated today on proper diabetic foot care including monitoring feet daily for any signs of infection openings in the skin or irregularities to both feet. Patient had a diabetic neurologicalexam today to both their feet and discussed proper shoe gear. Reviewed x-rays today with patient Patient unaware what surgeon performed the surgery about 15-20 years ago but says it was done in the state of [facility] and if gets worse will consider possible removal Jason Dumont DPM documented in this encounterChristian [id number] NotePharmD Cardiology Consult - New Consult 05/12/24 Referring Provider: [facility]: [facility] Saurabh Prasad is referred to clinic pharmacists for lipid management, specifically to start zetia or bempedoic acid. Note from provider states patient reports weight gain with statins and takes breaks from taking. Electronic order received from patient's cardiology provider. Will call patient to schedule. Kortney Camarena PharmD MA CardiologyUnPro[facility]02-28-2025 NoteLVM to schedule initial appointment for lipids management. Nabor Lezama PharmD Cardiology Outpatient Clinical Pharmacist 05/22/24[facility]02-28-2025 NoteDischarging patient from cardiology pharmacotherapy clinic due to no response to calls/failure to schedule initial visit for lipids management. Referring provider notified. Nabor Lezama PharmD Cardiology Outpatient Clinical Pharmacist 06/06/24[facility]02-28-2025 NoteLVM to schedule initial appointment. Nabor Lezama PharmD Cardiology Outpatient Clinical Pharmacist 05/16/24[facility]02-28-2025 NoteLVM to schedule initial visit for lipids management. Requested call back. Due to multiple attempts to contact patient for scheduling with no response, pt at risk for discharge from cardiology pharmacist clinic. Plan to discharge patient if no response in 1 week. aNbor Lezama PharmD Cardiology Outpatient Clinical Pharmacist 05/30/24[facility]02-27-2025 NoteCardiovascular Medicine [facility] SUBJECTIVE Chief Complaint Patient presents with Coronary Artery Disease Hypertension Hyperlipidemia Saurabh Prasad is a 73 y.o. male here [...] of lumbar region Coronary artery disease involving yuhaaviatam coronary artery of yuhaaviatam heart without angina pectoris Dyslipidemia associated with [...] Final Atrial Rate 04/16/2021 63 BPM Final PA Interval 04/16/2021 224 ms Final QRS DURATION 04/16/2021 108 ms Final QT Interval 04/16/2021 416 ms Final QTC CALCULATION(BAZETT) 04/16/2021 425 ms Final P [place] 04/16/2021 53 degrees Final R-[place] 04/16/2021 9 degrees Final T Wave [place] 04/16/2021 157 degrees Final Diagnosis 04/16/2021 F (more content not included)...[facility]02-27-2025 NotePatient here for 1 year follow up CAD, hypertension, and hyperlipidemia. Isosorbide [...] swelling. All other systems reviewed and are negative.[facility] 04-20-2024 Evaluation note* Diagnosis Onset Date Resolution Status Admit Date Acute left ankle pain acute Feb ruary 2024 10:32am Type 2 diabetes mellitus wit h hyperglycemia acute April 20 10:32am [facility] Work Phone: 1(309) 199-408812-06-2024 Evaluation note* Diagnosis Onset Date Resolution Status Admit Date Diabetic foot acute February 8:49am Type 2 diabetes mellitus wit h hyperglycemia acute February 17 8:49am Acute left ankle pain acute Apr 10:32am [facility] Work Phone: 1(101) 694-709810-19-2022 Evaluation note* Encounter Date Diagnosis Assessment Notes [...] the future to give me a call. [employer] Other 09-15-2022 NotePROCEDURE: XR HIP LT 2 [...] Electronically authenticated by: JANE HILL Date: 2021-11-27 10:53[facility]01-01-2021 History general Narrative - Reported* Type Description Date Medical History diabetes Medical History hypertension Surgical History Problem Title : cataracts remov ed, Problem Status : Active, Surgical History Problem Title : [place] noscopy, EGD - Dr. Michael - Mar [...] Vitrectomy 2019 , Problem Status : Active, [employer] Other Evaluation noteNo assessment information available [facility] Work Phone: Evaluation noteNo InformationNortGuthrie [facility] [employer] Other Evaluation note* Diagnosis Onset Date Resolution Status Essential (primary) hypertension acute Hypertension acute Screening PSA (prostate specific antigen) acute Type 2 diabetes mellitus with hyperglycemia acute [facility] Work Phone: Evaluation note* Diagnosis Onset Date Resolution Status Essential (primary) hypertension acute Hypertension acute Medicare annual wellness visit, subsequent acute Screening PSA (prostate specific antigen) acute Type 2 diabetes mellitus with hyperglycemia acute [facility] Work Phone: Evaluation note* Diagnosis Onset Date Resolution Status Foreign body acute [facility] Work Phone: Evaluation note* Diagnosis Pain due to bone fixation device, initial encounter ([facility]) ([facility])- Primary Foot pain, right Pain in soft tissues of limb Pain due to onychomycosis of toenails of both feet Diabetes mellitus due to underlying condition with diabetic polyneuropathy, unspecified whether usp insulin use ([facility]) Venous insufficiency Unspecified venous (peripheral) insufficiency documented in this encounter [facility] HealthcareHistory general Narrative - Reported* Type Description Date Medical History diabetes Medical History hypertension Surgical History hernia repair Surgical History vasectomy Surgical History pilonidal cyst [employer] [facility] [employer] Other Reason for referral (narrative)No reason for referral information availableMer[facility] Work Phone: Summary Purpose Family History Relationship Condition Age [...] Advance Directives No April 20, 2024 10:31am Advance Directive Response Recorded Date/ Time Advance Directives No April 20, 2024 11:31am Chief Complaint and Reason for Visit Chief [...] left ankle pain April 20, 2024 10:32am Chief Complaint Admit Date ankle pain April 20, 2024 1 0:32am Unknown May 16, 2024 8:15 pm Amb Documentation May 17, 2024 9:57 am Reason for Visit Admit Date Acute left ankle pain April 20, 2024 10:32am Type 2 diabetes mellitus with hyperglyce ciro April 20, 2024 10:32am Chief Complaint Admit Date ankle pain April 20, 2024 1 0:32am Unknown May 16, 2024 8:15 pm Amb Documentation May 17, 2024 9:57 am TBH:UTI/Fever May 22, 2024 1:4 6pm Chief Complaint Admit Date cough August 23, 2024 9:29 am Chief Complaint Admit Date cough August 23, [...] with hyperglyce ciro November 14, 2024 10:21am Additional Source Comments (unrecognized sect ion and content) No Status Records FoundNo Status Records FoundNo Status Records FoundNo Status Records FoundNo Status Records Found INFORMATION SOURCE (unrecogn ized section and content) DATE CREATED AUTHOR 04/18/2021 [facility] DATE CREATED AUTHOR AUTHOR'S ORGANIZ ATION 05/06/2022 [facility] DATE CREATED AUTHOR AUTHOR'S ORGANIZ ATION 05/19/2024 [facility] DATE CREATED AUTHOR AUTHOR'S ORGANIZ ATION 06/07/2024 [facility] DATE CREATED AUTHOR AUTHOR'S ORGANIZ ATION 06/10/2024 [facility] EPIC REASON FOR VISIT (unrecogniz ed section and content) Reason Comments Foot Pain Left and right foot pain Care Teams (unrecognized sec tion and content) Team Status: Active Member Role Status Dates Desi Barth MD Primary Care Provider Active Team Status: Inactive Member Role Status Dates Desi Barth MD Primary Care Provider Active Start: August 23, 2024 End: August 23, 2024 Desi Barth MD Attending Provider Active St art: August 23, 2024 End: August 23, 2024 Team Status: Inactive Member Role Status Dates Desi Barth MD Primary Care Provider Active Start: November 14, 2024 End: November 14, 2024 Desi Barth MD Attending Provider Active St art: November 14, 2024 End: November 14, 2024 Team Status: Active Member Role Status Dates Desi Barth MD Primary Care Provider Active Team Status: Active Member Role Status Dates Desi Barth MD Primary Care Provide r, Attending Provider Active Start: June 02, 2024 Team Status: Inactive Member Role Status Dates Desi Barth MD Primary Care Provide r, Attending Provider Active Start: August 23, 2024 End: August 23, 2024 Team Status: Inactive Member Role Status Dates Desi Barth MD Primary Care Provide r, Attending Provider Active Start: April 20, 2024 End: April 20, 2024 Team Status: Inactive Member Role Status Dates Desi Barth MD Primary Care Provider Active Start: May 16, 2024 End: May 16, 2024 Trini Medina DO Attending Provider Active Start: May 16, 2024 End: May 16, 2024 Team Status: Active Member Role Status Dates Desi Barth MD Primary Care Provider Active Start: May 16, 2024 Trini Medina DO Attending Provider Active Start: May 16, 2024 Team Status: Active Member Role Status Dates Desi Barth MD Primary Care Provide r, Attending Provider Active Start: May 17, 2024 Team Status: Active Member Role Status Dates Desi Barth MD Primary Care Provider Active Start: May 17, 2024 Erinn Estrella CMA Attending Provider Active Start: May 17, 2024 Team Status: Active Member Role Status Dates [...] End: August 17, 2023 Noemi Galindo APRN SHINGLE SHEARING MACHINE OPERATOR-C Attending Provider Act jay Start: August 17, 2023 End: August 17, 2023 Team Status: Inactive Member Role Status Dates Desi Barth MD Primary Care Provide r, Attending Provider Active Start: October 18, 2023 End: October 18, 2023 Team Status: Inactive Member Role Status Dates Desi Barth MD Primary Care Provide r, Attending Provider Active Start: May 22, 2024 End: May 22, 2024 Data Visualization Developer Relationship Specialty Start Date End Date Desi Barth MD [address] [place] [address] PCP - General Family Medicine 02/21/24 Data Visualization Developer Relationship Specialty Start Date End Date Desi Barth MD [address] [place] [address] PCP - General Family Medicine 02/21/24 Team Status: Inactive Member Role Status Dates Desi Barth MD Primary Care Provider Active Start: August 23, 2024 End: August 23, 2024 Desi Barth MD Attending Provider Active St art: August 23, 2024 End: August 23, 2024 Team Status: Inactive Member Role Status Dates Desi Barth MD Primary Care Provider Active Start: November 14, 2024 End: November 14, 2024 Desi Barth MD Attending Provider Active St art: November 14, 2024 End: November 14, 2024 Goals (unrecognized section and content) Goals may [...] BE BASED ON THE PRIMARY CLINICAL RECORDS. [facility] [employer] provides no warranty or guarantee of the accuracy or completeness of information in this document.
[2024-11-28 09:46] LABS: Hematocrit 38.5 % (42.0-54.0); Hemoglobin 12.8 g/dL (14.0-18.0); Immature Granulocytes Abs Auto 0.02 10^3/uL (0.00-0.03); Immature Granulocytes Pct Auto 0.2 % (0.0-0.5); Lymphocytes Absolute Auto 2.8 10^3/uL (1.2-3.8); Mean Corpuscular HGB Conc 33.2 g/dL (29.9-35.2); Mean Corpuscular Hemoglobin 28.4 pg (25.9-34.0); Mean Corpuscular Volume 85.4 fL (80.0-94.0); Platelet Count 247 10^3/uL (150-450); Red Blood Count 4.51 10^6/uL (4.70-6.10); White Blood Count 8.8 10^3/uL (4.0-11.0)
[2024-11-28 10:07] LABS: Alanine Aminotransferase 22 U/L (16-63); Albumin Globulin Ratio 0.9; Albumin Level 3.4 g/dL (3.4-5.0); Alkaline Phosphatase 72 U/L (46-116); Anion Gap 12.7; Aspartate Amino Transferase 21 U/L (15-37); Blood Urea Nitrogen 12.0 mg/dL (7.0-18.0); Calcium 8.9 mg/dL (8.5-10.1); Carbon Dioxide 29.8 mmol/L (21.0-32.0); Chloride 105 mmol/L (98-107); Cholesterol 84 mg/dL (<=200); Estimated GFR (African America >60 (>=60 mL/min/1.73m^2); Estimated GFR (Non-African Ame >60 (>=60 mL/min/1.73m^2); Globulin 4.0 g/dL; Glucose 153 mg/dL (74-106); HDL Cholesterol 40 mg/dL (40-60); Potassium 4.5 mmol/L (3.5-5.1); Sodium 143 mmol/L (136-145); TSH W/ REFLEX FT4 3.286 uIU/mL (0.358-3.740); Total Protein 7.4 g/dL (6.4-8.2); Triglycerides 46 mg/dL (<=150); VLDL CHOLESTEROL 9.2 mg/dL
[2024-11-28 10:39] LABS: Microalbum Creatinine Ratio Ur 24.0 mg/g (0.0-29.9)
== END 2024-11-28 08:59 | disposition home or self-care (01) ==
LOC: LAB 09:03
PROVIDERS: PCP Family Medicine; Visit Provider Family Medicine
DX: E11.65 Type 2 diabetes mellitus with hyperglycemia (principal); I10 Essential (primary) hypertension; R00.1 Bradycardia, unspecified
CPT/HCPCS: 36415; 80053; 80061; 82043; 82570; 83036; 84443; 85025